=== PATIENT | female | born 1980 | race Caucasian/White ===

== ENCOUNTER 2017-08-15 20:12 | Emergency (ER) | payer OTHER ==
[2017-08-15] MEDS ORDERED: traMADol 50 MG Tab PO ONE (20:30)
--- NOTE | 2017-08-15 20:31 | EDM.PDOC ---
ED HPI GENERAL MEDICAL PROBLEM - General Chief Complaint: ENT Problem Time Seen by Provider: 08/15/17 20:12 Source of Information: Reports: Patient History Limitations: Reports: No Limitations - History of Present Illness INITIAL COMMENTS - FREE TEXT/NARRATIVE: 36 y.o.w.f with Hunter symptom with chronic dizziness, came to the ed with dental pain. Pt had an MRI done 4 weeks a go and a dental cyst was seen at her r upper frontal tooth for which she will undergo surgery this Wednesday. BP 136/ 94 puls 85 Temp 36.5 RR 18 Pulse ox 100% Onset Date: 08/11/17 Onset Time: 06:00 Duration: Week(s): Location: Reports: Face Quality: Reports: Dull, Pressure, Same as Previous Episode Severity: Moderate Improves with: Reports: Rest Worsens with: Reports: Movement Context: Reports: Other (dental cyst) Right Face Pain Score (Numeric/FACES): 7 - Related Data Allergies Allergy/AdvReac Type Severity Reaction Status Date / Time gabapentin [From Neurontin] Allergy Intermediate Difficulty Verified 08/15/17 20 :30 Breathing acetaminophen Allergy Difficulty Verified 08/15/17 20:30 [From Darvocet-N 100] Swallowing propoxyphene napsylate Allergy Difficulty Verified 08/15/17 20:30 [From Darvocet-N 100] Swallowing spironolactone Allergy Difficulty Verified 08/15/17 20:30 Swallowing sulfamethoxazole Allergy Diarrhea Verified 08/15/17 20:30 [From Bactrim] trimethoprim [From Bactrim] Allergy Diarrhea Verified 08/15/17 20:30 adhesives Allergy Rash Uncoded 08/15/17 20:30 Home Meds: Home Meds Albuterol [Ventolin HFA] 2 puff INH Q4H PRN 12/17/14 [History] Albuterol/Ipratropium [DuoNeb 3.0-0.5 MG/3 ML] 1 inh INH QID PRN 12/17/14 [ History] Aspirin [Halfprin] 81 mg PO DAILY 01/29/15 [History] Acetaminophen with Codeine [Tylenol with Codeine #3 Tablet] 2 each PO Q4HR PRN 11/27/15 [History] Albuterol [Proventil HFA] 6.7 gm INH Q4H 11/27/15 [History] Beclomethasone Dipropionate [Qvar 40 Mcg] 2 puff IH BID 11/27/15 [History] Diclofenac Sodium [Voltaren] 50 mg PO BID 11/27/15 [History] Fluconazole [Diflucan] 150 mg PO ASDIRECTED 11/27/15 [History] Letrozole [Femara] 2.5 mg PO DAILY 11/27/15 [History] Loperamide [Imodium] 2 mg PO ASDIRECTED PRN 11/27/15 [History] Ondansetron [Zofran] 4 mg PO Q4H PRN 11/27/15 [History] PARoxetine [Paxil] 20 mg PO DAILY 11/27/15 [History] Ranitidine [Zantac] 150 mg PO BID 11/27/15 [History] medroxyPROGESTERone [Provera] 10 mg PO DAILY 11/27/15 [History] metFORMIN [Glucophage] 500 mg PO BIDMEALS 11/27/15 [History] traMADol [Ultram] 50 mg PO Q4H PRN #16 tab 08/15/17 [Rx] Past Medical History Cardiovascular History: Reports: Syncope, Other (See Below) Other Cardiovascular History: POTS Respiratory History: Reports: Asthma Gastrointestinal History: Reports: Cholelithiasis Genitourinary History: Reports: Other (See Below) Other Genitourinary History: KIDNEY STONES 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 Musculoskeletal History: Reports: Other (See Below) Other Musculoskeletal History: JOINT PAIN Psychiatric History: Reports: Depression Endocrine/Metabolic History: Reports: Hypoparathyroidism Other Endocrine/Metabolic History: parathyroid tumor - Past Surgical History GI Surgical History: Reports: Cholecystectomy Social & Family History - Tobacco Use Smoking Status *Q: Never Smoker Second Hand Smoke Exposure: No - Alcohol Use Days Per Week of Alcohol Use: 0 - Recreational Drug Use Recreational Drug Use: No Drug Use in Last 12 Months: No - Living Situation & Occupation Living situation: Reports: , with Spouse Occupation: Employed ED ROS ENT - Review of Systems Review Of Systems: See Below Constitutional: Reports: No Symptoms HEENT: Reports: Other (dental pain) Respiratory: Reports: No Symptoms Cardiovascular: Reports: No Symptoms Endocrine: Reports: No Symptoms GI/Abdominal: Reports: No Symptoms : Reports: No Symptoms Musculoskeletal: Reports: No Symptoms Skin: Reports: No Symptoms Neurological: Reports: No Symptoms Psychiatric: Reports: No Symptoms Hematologic/Lymphatic: Reports: No Symptoms Immunologic: Reports: No Symptoms ED EXAM, ENT - Physical Exam Exam: See Below Exam Limited By: No Limitations General Appearance: Alert, WD/WN, No Apparent Distress Eye Exam: Bilateral Eye: Normal Inspection Ears: Normal External Exam, Normal Canal Nose: Normal Inspection, Normal Mucousa Mouth/Throat: Normal Inspection, Normal Gums, Normal Lips, Normal Oropharynx Head: Atraumatic, Normocephalic Neck: Normal Inspection, Supple, Non-Tender Respiratory/Chest: No Respiratory Distress, Lungs Clear, Normal Breath Sounds Cardiovascular: Normal Peripheral Pulses, Regular Rate, Rhythm, No Edema, No Gallop GI/Abdominal: Normal Bowel Sounds (Female) Exam: Deferred Rectal (Female) Exam: Deferred Back: Normal Inspection Extremities: Normal Inspection Neurological: Alert, Oriented, CN II-XII Intact Psychiatric: Normal Affect, Normal Mood Skin: Warm, Dry, Intact Lymphatic: No Adenopathy Course - Vital Signs Text/Narrative:: 36 y.o.w.f with Hunter symptom with chronic dizziness, came to the ed with dental pain. Pt had an MRI done 4 weeks a go and a dental cyst was seen at her r upper frontal tooth for which she will undergo surgery this Wednesday. BP 136/ 94 puls 85 Temp 36.5 RR 18 Pulse ox 100% PE: Dental cyst by HX Impression: Dental cyst Tx: Ultram Plan: D/C with instructions Last Recorded V/S: Last Vital Signs Temp 36.4 C 08/15/17 20:30 Pulse 85 08/15/17 20:30 Resp 16 08/15/17 20:30 BP 136/94 H 08/15/17 20:30 Pulse Ox 100 08/15/17 20:30 - Orders/Labs/Meds Meds: Medications Discontinued Medications Generic Name Dose Route Start Last Admin Trade Name Freq PRN Reason Stop Dose Admin Tramadol HCl 100 mg 08/15/17 20:30 08/15/17 20:40 Ultram PO 08/15/17 20:31 100 mg ONETIME ONE Administration Departure - Departure Time of Disposition: 20:32 Disposition: Home, Self-Care 01 Condition: Good Clinical Impression: Dental cyst, Facial pain - Discharge Information Prescriptions: traMADol [Ultram] 50 mg PO Q4H PRN #16 tab PRN Reason: severe pain Referrals: Ilya Hummel MD [Primary Care Provider] - Forms: ED Department Discharge Additional Instructions: Please apply ice to the affected area, please take ultram for severe pain. F/U as scheduled for this Wednesday, please come back if your symptoms get worse acutely
[2017-08-15 20:37] VITALS: BP 136/94
== END 2017-08-15 20:46 | disposition home or self-care (01) ==
LOC: FB.ED 20:12
DX: K04.8 Radicular cyst (principal); Z88.8 Allergy status to other drugs, medicaments and biological substances; Z88.6 Allergy status to analgesic agent; Z88.2 Allergy status to sulfonamides; Z88.1 Allergy status to other antibiotic agents; Z79.899 Other long term (current) drug therapy; Z79.82 Long term (current) use of aspirin; Z79.84 Long term (current) use of oral hypoglycemic drugs
CPT/HCPCS: 99283; A9270

== ENCOUNTER 2018-11-06 16:52 | Emergency (ER) | payer OTHER ==
--- NOTE | 2018-11-06 17:06 | EDM.PDOC ---
ED HPI GENERAL MEDICAL PROBLEM - General Stated Complaint: BACK AND ABD PAIN Time Seen by Provider: 11/06/18 17:03 Source of Information: Reports: Patient, Family History Limitations: Reports: No Limitations - History of Present Illness INITIAL COMMENTS - FREE TEXT/NARRATIVE: 38 years old w f with multiple med issues including H/o IDDM, obesity, kidney stones, came to the ed with left flank pain radiating to her left groin. No trauma, says she could e . No N/V/D or any other acute medical issues. BP 145/93 RR 16 Pulse ox 98% on RA, Temp 36.8 Pulse 98 Onset Date: 11/06/18 Onset Time: 07:00 Duration: Hour(s):, Getting Worse, Intermittent Location: Reports: Abdomen Quality: Reports: Ache, Burning, Dull, Pressure Severity: Moderate Improves with: Reports: Rest Worsens with: Reports: Movement Context: Reports: Other (H/O Kidney stones) Left Flank Pain Score (Numeric/FACES): 4 - Related Data Allergies Allergy/AdvReac Type Severity Reaction Status Date / Time gabapentin [From Neurontin] Allergy Intermediate Difficulty Verified 11/06/18 19 :00 Breathing spironolactone Allergy Difficulty Verified 11/06/18 19:00 Swallowing sulfamethoxazole Allergy Diarrhea Verified 11/06/18 19:00 [From Bactrim] trimethoprim [From Bactrim] Allergy Diarrhea Verified 11/06/18 19:00 adhesives Allergy Rash Uncoded 11/06/18 19:00 Home Meds: Home Meds Albuterol [Proventil HFA] 2 puff INH Q4H PRN 08/16/18 [History] Albuterol/Ipratropium [DuoNeb 3.0-0.5 MG/3 ML] 3 ml INH QID PRN 08/16/18 [ History] Aluminum Chloride [Drysol] 1 applic TP BID PRN 08/16/18 [History] Cholecalciferol (Vitamin D3) [Vitamin D3] 1,000 units PO DAILY 08/16/18 [History ] Cholestyramine/Sucrose [Cholestyramine] 4 gm PO WITHBREAKFAST 08/16/18 [History] Clindamycin Phos/Benzoyl Perox [Clindamycin-Benzoyl Perox 1-5%] 1 applic TP ASDIRECTED PRN 08/16/18 [History] Dapagliflozin Propanediol [Farxiga] 10 mg PO DAILY 08/16/18 [History] Econazole [Econazole 1% Crm] 1 applic TOP ASDIRECTED PRN 08/16/18 [History] Fluconazole [Diflucan] 150 mg PO DAILY PRN 08/16/18 [History] Fluocinonide 1 applic TP ASDIRECTED PRN 08/16/18 [History] Fluticasone Propionate [Flonase] 1 spray NS DAILY 08/16/18 [History] Gemfibrozil [Lopid] 600 mg PO BIDAC 08/16/18 [History] Insulin Degludec [Tresiba Flextouch U-100] 70 unit SQ DAILY 08/16/18 [History] Letrozole [Femara] 2.5 unit PO ASDIRECTED 08/16/18 [History] Lidocaine 5% 1 applic TOP ASDIRECTED PRN 08/16/18 [History] Loperamide [Imodium] 2 mg PO ASDIRECTED 08/16/18 [History] Midodrine 5 mg PO TIDAC 08/16/18 [History] Multivitamin with Minerals [Multiple Vitamin] 1 tab PO DAILY 08/16/18 [History] Naproxen [Naprosyn] 500 mg PO BID 08/16/18 [History] [place]-3/DHA/Epa/Fish Oil [[place]-3 Fish Oil 1,000 MG Sfgl] 1,000 mg PO DAILY 03/28 [History] Omeprazole/Sodium Bicarbonate [Omeprazole-Bicarb 40-1,100 Cap] 1 each PO DAILY 08/16/18 [History] Ondansetron [Zofran ODT] 4 mg PO Q4H PRN 08/16/18 [History] Pramipexole [Mirapex] 0.5 mg PO QID PRN 08/16/18 [History] Promethazine [Phenergan] 10 ml PO Q6H PRN 08/16/18 [History] Ranitidine HCl [Ranitidine] 150 mg PO BID PRN 08/16/18 [History] Rosuvastatin [Crestor] 10 mg PO DAILY 08/16/18 [History] SUMAtriptan 100 mg PO Q2H PRN 08/16/18 [History] Sennosides/Docusate Sodium [Senokot-S Tablet] 1 each PO BID PRN 08/16/18 [ History] Sertraline [Zoloft] 150 mg PO DAILY 08/16/18 [History] SitaGLIPtin [Januvia] 100 tab PO DAILY 08/16/18 [History] Tamsulosin [Flomax] 0.4 mg PO DAILY PRN 08/16/18 [History] Triamcinolone Acetonide [Triamcinolone Acetonide 0.1% Crm] 1 applic TOP TID PRN 08/16/18 [History] hydrOXYzine pamoate [Vistaril] 25 mg PO TID 08/16/18 [History] medroxyPROGESTERone [Provera] 10 mg PO DAILY PRN 08/16/18 [History] Past Medical History HEENT History: Reports: Impaired Vision Cardiovascular History: Reports: High Cholesterol, Hypertension, Syncope, Other (See Below) Other Cardiovascular History: POTS Respiratory History: Reports: Asthma, Sleep Apnea Gastrointestinal History: Reports: Cholelithiasis, Colon Polyp, GERD Genitourinary History: Reports: Renal Calculus, Renal Disease 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 Musculoskeletal History: Reports: Fracture, Other (See Below) Other Musculoskeletal History: JOINT PAIN Neurological History: Reports: None Psychiatric History: Reports: Depression Endocrine/Metabolic History: Reports: Diabetes, Type II, Hypoparathyroidism, Obesity/BMI 30+, Other (See Below) Other Endocrine/Metabolic History: parathyroid tumor. HYPERCALCEMIA Hematologic History: Reports: None Immunologic History: Reports: None Oncologic (Cancer) History: Reports: None Dermatologic History: Reports: None - Infectious Disease History Infectious Disease History: Reports: Chicken Pox - Past Surgical History Head Surgeries/Procedures: Reports: None HEENT Surgical History: Reports: Oral Surgery, Tonsillectomy Cardiovascular Surgical History: Reports: None Respiratory Surgical History: Reports: None GI Surgical History: Reports: Appendectomy, Cholecystectomy, Colonoscopy Female Surgical History: Reports: Cystectomy, Salpingo-Oophorectomy, Other ( See Below) Other Female Surgeries/Procedures: LEFT OVARY REMOVED; HX LAP DIAG, INCLUDING HYSTEROSCOPY, ENDOMETRIAL POLYPECTOMY ET CURRETTAGE, FULGURATION OF ENDOMETRIOSIS. CYSTOURETHROSCOPY /W RMVL URETERAL STONES. URETEROSCOPY Endocrine Surgical History: Reports: Parathyroidectomy Other Endocrine Surgeries/Procedures: parathyroid tumor removed 12/23 Neurological Surgical History: Reports: None Musculoskeletal Surgical History: Reports: ORIF Other Musculoskeletal Surgeries/Procedures:: 5 ankle surgeries Oncologic Surgical History: Reports: None Dermatological Surgical History: Reports: None Social & Family History - Caffeine Use Caffeine Use: Reports: Soda - Living Situation & Occupation Living situation: Reports: , with Spouse Occupation: Employed ED ROS GENERAL - Review of Systems Review Of Systems: See Below Constitutional: Reports: No Symptoms HEENT: Reports: No Symptoms Respiratory: Reports: No Symptoms Cardiovascular: Reports: No Symptoms Endocrine: Reports: High Glucose GI/Abdominal: Reports: No Symptoms : Reports: Hematuria Musculoskeletal: Reports: No Symptoms Skin: Reports: No Symptoms Neurological: Reports: No Symptoms Psychiatric: Reports: No Symptoms Hematologic/Lymphatic: Reports: No Symptoms Immunologic: Reports: No Symptoms ED EXAM, RENAL/ - Physical Exam Exam: See Below Exam Limited By: No Limitations General Appearance: Alert, WD/WN, Moderate Distress, Obese (morbid) Eye Exam: Bilateral Eye: Normal Inspection Ears: Normal External Exam Nose: Normal Inspection Throat/Mouth: Normal Inspection, Normal Lips, Normal Voice, No Airway Compromise Head: Atraumatic, Normocephalic Neck: Normal Inspection, Supple, Non-Tender, Full Range of Motion Respiratory/Chest: No Respiratory Distress, Lungs Clear, Normal Breath Sounds, No Accessory Muscle Use, Chest Non-Tender Cardiovascular: Normal Peripheral Pulses, Regular Rate, Rhythm, No Edema, No Gallop, No Murmur, No Rub GI/Abdominal: Normal Bowel Sounds, Soft, No Abnormal Bruit, Hepatomegaly, Splenomegaly, Other (left flank pain) (Female) Exam: Deferred Rectal (Female) Exam: Deferred Back Exam: Normal Inspection, Full Range of Motion, CVA Tenderness (L) Extremities: Normal Inspection, Normal Range of Motion, Non-Tender, No Pedal Edema, Normal Capillary Refill Neurological: Alert, Oriented, CN II-XII Intact, Normal Cognition, Normal Gait, No Motor/Sensory Deficits Psychiatric: Normal Affect, Normal Mood Skin Exam: Warm, Dry, Intact, Normal Color, No Rash Lymphatic: No Adenopathy Course - Vital Signs Text/Narrative:: 38 years old w f with multiple med issues including H/o IDDM, obesity, kidney stones, came to the ed with left flank pain radiating to her left groin. No trauma, says she could e . No N/V/D or any other acute medical issues. BP 145/93 RR 16 Pulse ox 98% on RA, Temp 36.8 Pulse 98 PE: Obese 38 y.o.w.f with left flank pain Imaging: CT abd/pelvis: Left ovarian cyst 3.1 cm, Nk kidney stone Labs: Na 131 Glc 413 MCV 77.4 Cl 96, UA pos for >1000 glc HCG neg Impression: Left sided ovarian cysts, IDDM with hyperglycemia, morbid obesity, hepatosplenomegaly Tx: Insulin 10 units SQ, Toradol Reexam: Improved, Glc on D/C 312 Plan: D/C with instructions Last Recorded V/S: Last Vital Signs Temp 36.8 C 11/06/18 19:20 Pulse 78 11/06/18 19:20 Resp 16 11/06/18 19:20 BP 145/93 H 11/06/18 19:20 Pulse Ox 99 11/06/18 19:20 - Orders/Labs/Meds Orders: Active Orders 24 hr Category Date Time Status Abdomen Pelvis wo Cont [CT] Stat Exams 11/06/18 18:02 Taken Labs: Laboratory Tests 11/06/18 11/06/18 11/06/18 Range/Units 17:15 17:15 17:30 WBC 9.6 (4.5-12.0) X10-3/uL RBC 5.06 (3.23-5.20) x10(6)uL Hgb 13.7 (11.5-15.5) g/dL Hct 39.3 (30.0-51.3) % MCV 77.6 L (80-96) fL MCH 27.1 L (27.7-33.6) pg MCHC 34.9 (32.2-35.4) g/dL RDW 16.3 H (11.5-15.5) % Plt Count 213 (125-369) X10(3)uL MPV 7.6 (7.4-10.4) fL Neut % (Auto) 66.6 (46-82) % Lymph % (Auto) 24.3 (13-37) % [place] % (Auto) 7.5 (4-12) % Eos % (Auto) 1 (1.0-5.0) % Baso % (Auto) 0 (0-2) % Neut # (Auto) 6.5 (1.6-8.3) # Lymph # (Auto) 2.3 (0.6-5.0) # [place] # (Auto) 0.7 (0.0-1.3) # Eos # (Auto) 0.1 (0.0-0.8) # Baso # (Auto) 0.0 (0.0-0.2) # Sodium 131 L (135-145) mmol/L Potassium 4.3 (3.5-5.3) mmol/L Chloride 96 L (100-110) mmol/L Carbon Dioxide 25 (21-32) mmol/L BUN 9 (7-18) mg/dL Creatinine 0.9 (0.55-1.02) mg/dL Est Cr Clr Drug Dosing TNP Estimated GFR (MDRD) > 60 (>60) BUN/Creatinine Ratio 10.0 (9-20) Glucose 413 H* (80-116) mg/dL POC Glucose (80-116) mg/dL Calcium 9.4 (8.6-10.2) mg/dL Urine Color Yellow (YELLOW) Urine Appearance Clear (CLEAR) Urine pH 5.0 (5.0-6.5) Ur Specific Stella 1.020 (1.010-1.025) Urine Protein Negative (NEGATIVE) mg/dL Urine Glucose (UA) >1000 H (NEGATIVE) mg/dL Urine Ketones Negative (NEGATIVE) mg/dL Urine Occult Blood Large H (NEGATIVE) Urine Nitrite Negative (NEGATIVE) Urine Bilirubin Negative (NEGATIVE) Urine Urobilinogen Normal (NEGATIVE) mg/dL Ur Leukocyte Esterase Negative (NEGATIVE) Urine RBC 0-5 (0) Urine WBC 0-5 (0) Ur Squamous Epith Cells Occasional (NS,R,O) Urine Bacteria Rare H (NS) Urine HCG, Qual (NEGATIVE) 11/06/18 11/06/18 Range/Units 17:30 19:30 WBC (4.5-12.0) X10-3/uL RBC (3.23-5.20) x10(6)uL Hgb (11.5-15.5) g/dL Hct (30.0-51.3) % MCV (80-96) fL MCH (27.7-33.6) pg MCHC (32.2-35.4) g/dL RDW (11.5-15.5) % Plt Count (125-369) X10(3)uL MPV (7.4-10.4) fL Neut % (Auto) (46-82) % Lymph % (Auto) (13-37) % [place] % (Auto) (4-12) % Eos % (Auto) (1.0-5.0) % Baso % (Auto) (0-2) % Neut # (Auto) (1.6-8.3) # Lymph # (Auto) (0.6-5.0) # [place] # (Auto) (0.0-1.3) # Eos # (Auto) (0.0-0.8) # Baso # (Auto) (0.0-0.2) # Sodium (135-145) mmol/L Potassium (3.5-5.3) mmol/L Chloride (100-110) mmol/L Carbon Dioxide (21-32) mmol/L BUN (7-18) mg/dL Creatinine (0.55-1.02) mg/dL Est Cr Clr Drug Dosing Estimated GFR (MDRD) (>60) BUN/Creatinine Ratio (9-20) Glucose (80-116) mg/dL POC Glucose 310 H D (80-116) mg/dL Calcium (8.6-10.2) mg/dL Urine Color (YELLOW) Urine Appearance (CLEAR) Urine pH (5.0-6.5) Ur Specific Stella (1.010-1.025) Urine Protein (NEGATIVE) mg/dL Urine Glucose (UA) (NEGATIVE) mg/dL Urine Ketones (NEGATIVE) mg/dL Urine Occult Blood (NEGATIVE) Urine Nitrite (NEGATIVE) Urine Bilirubin (NEGATIVE) Urine Urobilinogen (NEGATIVE) mg/dL Ur Leukocyte Esterase (NEGATIVE) Urine RBC (0) Urine WBC (0) Ur Squamous Epith Cells (NS,R,O) Urine Bacteria (NS) Urine HCG, Qual Negative (NEGATIVE) Meds: Medications Discontinued Medications Generic Name Dose Route Start Last Admin Trade Name Freq PRN Reason Stop Dose Admin Sodium Chloride 1,000 mls @ 999 mls/hr 11/06/18 18:02 11/06/18 19:27 Normal Saline IV 11/06/18 19:02 Not Given .BOLUS ONE Insulin Human Regular 10 unit 11/06/18 17:51 11/06/18 18:57 Humulin R SUBCUT 11/06/18 17:52 10 units ONETIME STA Administration Ketorolac Tromethamine 60 mg 11/06/18 18:52 11/06/18 18:57 Toradol IM 11/06/18 18:53 60 mg ONETIME ONE Administration Departure - Departure Time of Disposition: 19:26 Disposition: Home, Self-Care 01 Condition: Good Clinical Impression: Morbid obesity Ovarian cyst Qualifiers: Laterality: left Qualified Code(s): N83.202 - Unspecified ovarian cyst, left side Diabetes mellitus, insulin dependent (IDDM), uncontrolled Qualifiers: Glycemic state: with hyperglycemia Qualified Code(s): E10.65 - Type 1 diabetes mellitus with hyperglycemia - Discharge Information Instructions: Ovarian Cyst, [id number] Referrals: Ilya Hummel MD [Primary Care Provider] - Forms: ED Department Discharge Additional Instructions: Please increase water intake, please take Tylenol/Advil for pain, please f/u, come back if your symptoms get worse acutely - My Orders Last 24 Hours: My Active Orders 11/06/18 18:02 Abdomen Pelvis wo Cont [CT] Stat - Assessment/Plan Last 24 Hours: My Active Orders 11/06/18 18:02 Abdomen Pelvis wo Cont [CT] Stat
[2018-11-06] MEDS ORDERED: Insulin Regular, Human 100 Units/ML 3 ML Vial SUBCUT STA (17:51)
[2018-11-06] MEDS ORDERED: Sodium Chloride 0.9% 1,000 ML IV ONE (18:02)
[2018-11-06] MEDS ORDERED: Ketorolac 60 MG/2 ML SDV IM ONE (18:52)
[2018-11-06 19:40] VITALS: BP 145/93
== END 2018-11-06 19:37 | disposition home or self-care (01) ==
LOC: FB.ED 16:52
DX: N83.202 Unspecified ovarian cyst, left side (principal); E11.65 Type 2 diabetes mellitus with hyperglycemia; R16.2 Hepatomegaly with splenomegaly, not elsewhere classified; I10 Essential (primary) hypertension; E66.9 Obesity, unspecified; E66.01 Morbid (severe) obesity due to excess calories; Z88.8 Allergy status to other drugs, medicaments and biological substances; Z88.2 Allergy status to sulfonamides; Z79.899 Other long term (current) drug therapy
CPT/HCPCS: 36415; 74176; 80048; 81001; 81025; 82962; 85025; 96372; 99284; J1815; J1885

== ENCOUNTER 2018-11-25 22:19 | Emergency (ER) | payer OTHER ==
[2018-11-25] MEDS ORDERED: Amoxicillin/Clavulanate K 875-125 MG Tab PO ONE (22:29)
--- NOTE | 2018-11-25 22:34 | EDM.PDOC ---
ED HPI GENERAL MEDICAL PROBLEM - General Stated Complaint: DOG STRATCH TO LEFT ARM Time Seen by Provider: 11/25/18 22:19 Source of Information: Reports: Patient, Family History Limitations: Reports: No Limitations - History of Present Illness INITIAL COMMENTS - FREE TEXT/NARRATIVE: 38 y.o.w.francesco came with her daughter to the ed > 10 hours after she was bit by her own dog while attempting to separate 2 fighting neighbor's dogs. Her dog is UTD with his Rabies shots up to date and she, the patient Keila Abernathy, can proof it. Pt did not have the immunization records here in the ED. Pt stated, she washed the wound with soap and water and applied Neosporin ointment onto the wound. Because she was concerned about a scar, she came to the ED for eval. Her TD is UTD. Last TD immunization was 2013 as per her own records on her I Phone. Pt has full function at her left hand/arm. The puncture wound is not bleeding. No other acute medical issues. BP 143/84 RR 18 Pulse ox 99% on RA Pulse 95 Temp 36.8 Onset Date: 11/25/18 Onset Time: 12:05 Duration: Hour(s):, Constant Location: Reports: Upper Extremity, Left (forearm.) Quality: Reports: Dull Severity: Mild Improves with: Reports: Rest Worsens with: Reports: Movement Context: Reports: Other (dog bite) Associated Symptoms: Reports: No Other Symptoms Left Wrist Pain Score (Numeric/FACES): 5 - Related Data Allergies Allergy/AdvReac Type Severity Reaction Status Date / Time gabapentin [From Neurontin] Allergy Intermediate Difficulty Verified 11/26/18 00 :15 Breathing spironolactone Allergy Difficulty Verified 11/26/18 00:15 Swallowing sulfamethoxazole Allergy Diarrhea Verified 11/26/18 00:15 [From Bactrim] trimethoprim [From Bactrim] Allergy Diarrhea Verified 11/26/18 00:15 adhesives Allergy Rash Uncoded 11/26/18 00:15 Home Meds: Home Meds Albuterol [Proventil HFA] 2 puff INH Q4H PRN 08/16/18 [History] Albuterol/Ipratropium [DuoNeb 3.0-0.5 MG/3 ML] 3 ml INH QID PRN 08/16/18 [ History] Aluminum Chloride [Drysol] 1 applic TP BID PRN 08/16/18 [History] Cholecalciferol (Vitamin D3) [Vitamin D3] 1,000 units PO DAILY 08/16/18 [History ] Cholestyramine/Sucrose [Cholestyramine] 4 gm PO WITHBREAKFAST 08/16/18 [History] Clindamycin Phos/Benzoyl Perox [Clindamycin-Benzoyl Perox 1-5%] 1 applic TP ASDIRECTED PRN 08/16/18 [History] Dapagliflozin Propanediol [Farxiga] 10 mg PO DAILY 08/16/18 [History] Econazole [Econazole 1% Crm] 1 applic TOP ASDIRECTED PRN 08/16/18 [History] Fluconazole [Diflucan] 150 mg PO DAILY PRN 08/16/18 [History] Fluocinonide 1 applic TP ASDIRECTED PRN 08/16/18 [History] Fluticasone Propionate [Flonase] 1 spray NS DAILY 08/16/18 [History] Gemfibrozil [Lopid] 600 mg PO BIDAC 08/16/18 [History] Insulin Degludec [Tresiba Flextouch U-100] 70 unit SQ DAILY 08/16/18 [History] Letrozole [Femara] 2.5 unit PO ASDIRECTED 08/16/18 [History] Lidocaine 5% 1 applic TOP ASDIRECTED PRN 08/16/18 [History] Loperamide [Imodium] 2 mg PO ASDIRECTED 08/16/18 [History] Midodrine 5 mg PO TIDAC 08/16/18 [History] Multivitamin with Minerals [Multiple Vitamin] 1 tab PO DAILY 08/16/18 [History] Naproxen [Naprosyn] 500 mg PO BID 08/16/18 [History] [place]-3/DHA/Epa/Fish Oil [[place]-3 Fish Oil 1,000 MG Sfgl] 1,000 mg PO DAILY 03/28 [History] Omeprazole/Sodium Bicarbonate [Omeprazole-Bicarb 40-1,100 Cap] 1 each PO DAILY 08/16/18 [History] Ondansetron [Zofran ODT] 4 mg PO Q4H PRN 08/16/18 [History] Pramipexole [Mirapex] 0.5 mg PO QID PRN 08/16/18 [History] Promethazine [Phenergan] 10 ml PO Q6H PRN 08/16/18 [History] Ranitidine HCl [Ranitidine] 150 mg PO BID PRN 08/16/18 [History] Rosuvastatin [Crestor] 10 mg PO DAILY 08/16/18 [History] SUMAtriptan 100 mg PO Q2H PRN 08/16/18 [History] Sennosides/Docusate Sodium [Senokot-S Tablet] 1 each PO BID PRN 08/16/18 [ History] Sertraline [Zoloft] 150 mg PO DAILY 08/16/18 [History] SitaGLIPtin [Januvia] 100 tab PO DAILY 08/16/18 [History] Tamsulosin [Flomax] 0.4 mg PO DAILY PRN 08/16/18 [History] Triamcinolone Acetonide [Triamcinolone Acetonide 0.1% Crm] 1 applic TOP TID PRN 08/16/18 [History] hydrOXYzine pamoate [Vistaril] 25 mg PO TID 08/16/18 [History] medroxyPROGESTERone [Provera] 10 mg PO DAILY PRN 08/16/18 [History] Amoxicillin/Potassium Clav [Augmentin 875-125 Tablet] 1 each PO BID #20 tablet 11/25/18 [Rx] Past Medical History HEENT History: Reports: Impaired Vision Cardiovascular History: Reports: High Cholesterol, Hypertension, Syncope, Other (See Below) Other Cardiovascular History: POTS Respiratory History: Reports: Asthma, Sleep Apnea Gastrointestinal History: Reports: Cholelithiasis, Colon Polyp, GERD Genitourinary History: Reports: Renal Calculus, Renal Disease STICK ROLLER History: Reports: Endometriosis, Other STICK ROLLER History: cystic ovaries with surgery bilat ovaries. Musculoskeletal History: Reports: Fracture, Other (See Below) Other Musculoskeletal History: JOINT PAIN Neurological History: Reports: None Psychiatric History: Reports: Depression Endocrine/Metabolic History: Reports: Diabetes, Type II, Hypoparathyroidism, Obesity/BMI 30+, Other (See Below) Other Endocrine/Metabolic History: parathyroid tumor. HYPERCALCEMIA Hematologic History: Reports: None Immunologic History: Reports: None Oncologic (Cancer) History: Reports: None Dermatologic History: Reports: None - Infectious Disease History Infectious Disease History: Reports: Chicken Pox - Past Surgical History Head Surgeries/Procedures: Reports: None HEENT Surgical History: Reports: Oral Surgery, Tonsillectomy Cardiovascular Surgical History: Reports: None Respiratory Surgical History: Reports: None GI Surgical History: Reports: Appendectomy, Cholecystectomy, Colonoscopy Female Surgical History: Reports: Cystectomy, Salpingo-Oophorectomy, Other ( See Below) Other Female Surgeries/Procedures: LEFT OVARY REMOVED; HX LAP DIAG, INCLUDING HYSTEROSCOPY, ENDOMETRIAL POLYPECTOMY ET CURRETTAGE, FULGURATION OF ENDOMETRIOSIS. CYSTOURETHROSCOPY /W RMVL URETERAL STONES. URETEROSCOPY Endocrine Surgical History: Reports: Parathyroidectomy Other Endocrine Surgeries/Procedures: parathyroid tumor removed 12/23 Neurological Surgical History: Reports: None Musculoskeletal Surgical History: Reports: ORIF Other Musculoskeletal Surgeries/Procedures:: 5 ankle surgeries Oncologic Surgical History: Reports: None Dermatological Surgical History: Reports: None Social & Family History - Family History Family Medical History: Noncontributory - Caffeine Use Caffeine Use: Reports: Soda - Living Situation & Occupation Living situation: Reports: , with Spouse Occupation: Employed ED ROS GENERAL - Review of Systems Review Of Systems: See Below Constitutional: Reports: No Symptoms HEENT: Reports: No Symptoms Respiratory: Reports: No Symptoms Cardiovascular: Reports: No Symptoms Endocrine: Reports: No Symptoms GI/Abdominal: Reports: No Symptoms : Reports: No Symptoms Musculoskeletal: Reports: No Symptoms (punctured left forearm) Skin: Reports: Wound Neurological: Reports: No Symptoms Psychiatric: Reports: No Symptoms Hematologic/Lymphatic: Reports: No Symptoms Immunologic: Reports: No Symptoms ED EXAM, ANIMAL BITE - Physical Exam Exam: See Below Exam Limited By: No Limitations General Appearance: Alert, WD/WN, Mild Distress Eye Exam: Bilateral Eye: Normal Inspection Ears: Normal External Exam, Normal Canal Nose: Normal Inspection, Normal Mucosa, No Blood Throat/Mouth: Normal Lips, Normal Voice, No Airway Compromise Head: Atraumatic, Normocephalic Neck: Normal Inspection, Supple, Non-Tender, Full Range of Motion Respiratory/Chest: No Respiratory Distress, Lungs Clear, Normal Breath Sounds, Chest Non-Tender Cardiovascular: Normal Peripheral Pulses, Regular Rate, Rhythm, No Edema, No Gallop, No Murmur Peripheral Pulses: 1+: Brachial (R) GI/Abdominal: Normal Bowel Sounds, Soft, Non-Tender, No Organomegaly, No Abnormal Bruit, No Mass, Pelvis Stable (Female) Exam: Deferred Rectal (Female) Exam: Deferred Back Exam: Normal Inspection, Full Range of Motion Extremities: Normal Range of Motion, Non-Tender, No Pedal Edema, Normal Capillary Refill, Other (punctured wound left forearm, no bleed) Neurological: Alert, Oriented, CN II-XII Intact, Normal Cognition, Normal Gait Psychiatric: Normal Affect, Normal Mood Skin Exam: Normal Color, Warm/Dry, Other (punctured wound left forearm, no bleed.) Lymphadenopathy: Bilateral: No Adenopathy Lymphatic: No Adenopathy Course - Vital Signs Text/Narrative:: 38 y.o.w.f came with her daughter to the ed > 10 hours after she was bit by her own dog while attempting to separate 2 fighting neighbor's dogs. Her dog is UTD with his Rabies shots up to date and she, the patient Keila Abernathy, can proof it. Pt did not have the immunization records here in the ED. Pt stated, she washed the wound with soap and water and applied Neosporin ointment onto the wound. Because she was concerned about a scar, she came to the ED for eval. Her TD is UTD. Last TD immunization was 2013 as per her own records on her I Phone. Pt has full function at her left hand/arm. The puncture wound is not bleeding. No other acute medical issues. BP 143/84 RR 18 Pulse ox 99% on RA Pulse 95 Temp 36.8 PE: Morbid obese 38 y.o.w.f with punctured dog bite wound left forearm Immunization: TD UTD 2013 as per PT. Pt dog got rabies shots last year, pt said she can proof it Impression: Dog bite left forearm, punctured Tx: Wound care, Augmentin Reexam: Improved Plan: D/C with instructions Last Recorded V/S: Last Vital Signs Temp 36.8 C 11/25/18 22:20 Pulse 95 11/25/18 22:20 Resp 18 11/25/18 22:20 BP 143/84 H 11/25/18 22:20 Pulse Ox 99 11/25/18 22:20 - Orders/Labs/Meds Meds: Medications Discontinued Medications Generic Name Dose Route Start Last Admin Trade Name Freq PRN Reason Stop Dose Admin Amoxicillin/Clavulanate Potassium 1 tab 11/25/18 22:29 11/25/18 22:59 Augmentin 875 Mg/125 Mg PO 11/25/18 22:30 1 tab ONETIME ONE Administration Departure - Departure Time of Disposition: 23:03 Disposition: Home, Self-Care 01 Condition: Good Clinical Impression: Dog bite of arm Qualifiers: Encounter type: initial encounter Laterality: left Qualified Code(s): S41.152A - Open bite of left upper arm, initial encounter - Discharge Information Prescriptions: Amoxicillin/Potassium Clav [Augmentin 875-125 Tablet] 1 each PO BID #20 tablet Instructions: Animal Bite, [id number], Amoxicillin; Clavulanic Acid tablets Referrals: Ilya Hummel MD [Primary Care Provider] - Forms: ED Department Discharge Additional Instructions: Please wash the wound with soap and water twice daily, take Augmentin as recommended, wound check in 3 days. Please come back if your symptoms gt worse acutely. Motrin for pain.
[2018-11-25 23:10] VITALS: BP 143/84
== END 2018-11-25 23:13 | disposition home or self-care (01) ==
LOC: FB.ED 22:19
DX: S41.152A Open bite of left upper arm, initial encounter (principal); E78.00 Pure hypercholesterolemia, unspecified; I10 Essential (primary) hypertension; E11.9 Type 2 diabetes mellitus without complications; F32.9 Major depressive disorder, single episode, unspecified; Z79.899 Other long term (current) drug therapy; Z88.8 Allergy status to other drugs, medicaments and biological substances; Z88.2 Allergy status to sulfonamides; Z79.4 Long term (current) use of insulin; W54.0XXA Bitten by dog, initial encounter
CPT/HCPCS: 99282; A9270

== ENCOUNTER 2019-03-26 14:42 | Emergency (ER) | payer OTHER ==
[2019-03-26] MEDS ORDERED: Insulin Lispro 100 Unit/ML 3 ML KwikPen SUBCUT ONE (15:27)
--- NOTE | 2019-03-26 15:29 | EDM.PDOC ---
ED HPI GENERAL MEDICAL PROBLEM - General Chief Complaint: General Stated Complaint: HAND INFECTION Time Seen by Provider: 03/26/19 15:24 Source of Information: Reports: Patient History Limitations: Reports: No Limitations - History of Present Illness INITIAL COMMENTS - FREE TEXT/NARRATIVE: Developed pain to the left 4th digit radiating to dorsum of hand yesterday. This morning noticed redness and swelling to the left 4th digit and was able to express purulent fluid. Patient also developed tingling sensation to the left 4th digit today, but no weakness. Blood sugar was @350 this morning. Patient has DM 2 and also complains of slight nausea and polydipsia. Location: Reports: Upper Extremity, Left Severity: Mild Left ring finger Pain Score (Numeric/FACES): 5 - Related Data Allergies Allergy/AdvReac Type Severity Reaction Status Date / Time gabapentin [From Neurontin] Allergy Intermediate Difficulty Verified 03/26/19 16 :12 Breathing spironolactone Allergy Difficulty Verified 03/26/19 16:12 Swallowing sulfamethoxazole Allergy Diarrhea Verified 03/26/19 16:12 [From Bactrim] trimethoprim [From Bactrim] Allergy Diarrhea Verified 03/26/19 16:12 adhesives Allergy Rash Uncoded 11/26/18 00:15 Home Meds: Home Meds Albuterol [Proventil HFA] 2 puff INH Q4H PRN 08/16/18 [History] Albuterol/Ipratropium [DuoNeb 3.0-0.5 MG/3 ML] 3 ml INH QID PRN 08/16/18 [ History] Aluminum Chloride [Drysol] 1 applic TP BID PRN 08/16/18 [History] Cholecalciferol (Vitamin D3) [Vitamin D3] 1,000 units PO DAILY 08/16/18 [History ] Cholestyramine/Sucrose [Cholestyramine] 4 gm PO WITHBREAKFAST 08/16/18 [History] Clindamycin Phos/Benzoyl Perox [Clindamycin-Benzoyl Perox 1-5%] 1 applic TP ASDIRECTED PRN 08/16/18 [History] Dapagliflozin Propanediol [Farxiga] 10 mg PO DAILY 08/16/18 [History] Econazole [Econazole 1% Crm] 1 applic TOP ASDIRECTED PRN 08/16/18 [History] Fluconazole [Diflucan] 150 mg PO DAILY PRN 08/16/18 [History] Fluocinonide 1 applic TP ASDIRECTED PRN 08/16/18 [History] Fluticasone Propionate [Flonase] 1 spray NS DAILY 08/16/18 [History] Gemfibrozil [Lopid] 600 mg PO BIDAC 08/16/18 [History] Insulin Degludec [Tresiba Flextouch U-100] 70 unit SQ DAILY 08/16/18 [History] Letrozole [Femara] 2.5 unit PO ASDIRECTED 08/16/18 [History] Lidocaine 5% 1 applic TOP ASDIRECTED PRN 08/16/18 [History] Loperamide [Imodium] 2 mg PO ASDIRECTED 08/16/18 [History] Midodrine 5 mg PO TIDAC 08/16/18 [History] Multivitamin with Minerals [Multiple Vitamin] 1 tab PO DAILY 08/16/18 [History] Naproxen [Naprosyn] 500 mg PO BID 08/16/18 [History] [place]-3/DHA/Epa/Fish Oil [[place]-3 Fish Oil 1,000 MG Sfgl] 1,000 mg PO DAILY 03/28 [History] Omeprazole/Sodium Bicarbonate [Omeprazole-Bicarb 40-1,100 Cap] 1 each PO DAILY 08/16/18 [History] Ondansetron [Zofran ODT] 4 mg PO Q4H PRN 08/16/18 [History] Pramipexole [Mirapex] 0.5 mg PO QID PRN 08/16/18 [History] Promethazine [Phenergan] 10 ml PO Q6H PRN 08/16/18 [History] Ranitidine HCl [Ranitidine] 150 mg PO BID PRN 08/16/18 [History] Rosuvastatin [Crestor] 10 mg PO DAILY 08/16/18 [History] SUMAtriptan 100 mg PO Q2H PRN 08/16/18 [History] Sennosides/Docusate Sodium [Senokot-S Tablet] 1 each PO BID PRN 08/16/18 [ History] Sertraline [Zoloft] 150 mg PO DAILY 08/16/18 [History] SitaGLIPtin [Januvia] 100 tab PO DAILY 08/16/18 [History] Tamsulosin [Flomax] 0.4 mg PO DAILY PRN 08/16/18 [History] Triamcinolone Acetonide [Triamcinolone Acetonide 0.1% Crm] 1 applic TOP TID PRN 08/16/18 [History] hydrOXYzine pamoate [Vistaril] 25 mg PO TID 08/16/18 [History] medroxyPROGESTERone [Provera] 10 mg PO DAILY PRN 08/16/18 [History] Amoxicillin/Potassium Clav [Augmentin 875-125 Tablet] 1 each PO BID #20 tablet 11/25/18 [Rx] Cephalexin [Keflex] 500 mg PO QID #40 capsule 03/26/19 [Rx] Past Medical History HEENT History: Reports: Impaired Vision Cardiovascular History: Reports: High Cholesterol, Hypertension, Syncope, Other (See Below) Other Cardiovascular History: POTS Respiratory History: Reports: Asthma, Sleep Apnea Gastrointestinal History: Reports: Cholelithiasis, Colon Polyp, GERD Genitourinary History: Reports: Renal Calculus, Renal Disease 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 Musculoskeletal History: Reports: Fracture, Other (See Below) Other Musculoskeletal History: JOINT PAIN Neurological History: Reports: None Psychiatric History: Reports: Depression Endocrine/Metabolic History: Reports: Diabetes, Type II, Hypoparathyroidism, Obesity/BMI 30+, Other (See Below) Other Endocrine/Metabolic History: parathyroid tumor. HYPERCALCEMIA Hematologic History: Reports: None Immunologic History: Reports: None Oncologic (Cancer) History: Reports: None Dermatologic History: Reports: None - Infectious Disease History Infectious Disease History: Reports: Chicken Pox - Past Surgical History Head Surgeries/Procedures: Reports: None HEENT Surgical History: Reports: Oral Surgery, Tonsillectomy Cardiovascular Surgical History: Reports: None Respiratory Surgical History: Reports: None GI Surgical History: Reports: Appendectomy, Cholecystectomy, Colonoscopy Female Surgical History: Reports: Cystectomy, Salpingo-Oophorectomy, Other ( See Below) Other Female Surgeries/Procedures: LEFT OVARY REMOVED; HX LAP DIAG, INCLUDING HYSTEROSCOPY, ENDOMETRIAL POLYPECTOMY ET CURRETTAGE, FULGURATION OF ENDOMETRIOSIS. CYSTOURETHROSCOPY /W RMVL URETERAL STONES. URETEROSCOPY Endocrine Surgical History: Reports: Parathyroidectomy Other Endocrine Surgeries/Procedures: parathyroid tumor removed 12/23 Neurological Surgical History: Reports: None Musculoskeletal Surgical History: Reports: ORIF Other Musculoskeletal Surgeries/Procedures:: 5 ankle surgeries Oncologic Surgical History: Reports: None Dermatological Surgical History: Reports: None Social & Family History - Family History Family Medical History: Noncontributory - Caffeine Use Caffeine Use: Reports: Soda - Living Situation & Occupation Living situation: Reports: , with Spouse Occupation: Employed ED ROS GENERAL - Review of Systems Review Of Systems: ROS reveals no pertinent complaints other than HPI. ED EXAM, GENERAL - Physical Exam Exam: See Below Exam Limited By: No Limitations General Appearance: Alert, WD/WN, No Apparent Distress Ears: Normal External Exam Nose: Normal Inspection Throat/Mouth: No Airway Compromise Head: Atraumatic, Normocephalic Neck: Full Range of Motion Respiratory/Chest: No Respiratory Distress Peripheral Pulses: 2+: Radial (L) Extremities: Other (mild erythema and tenderness to the distal aspect of left 4th digit, dried yellow fluid adjacent to the medical aspect of fingernail) Neurological: Alert, Normal Cognition, No Motor/Sensory Deficits Psychiatric: Normal Affect, Normal Mood Course - Vital Signs Text/Narrative:: BP 152/111, T 97.9, HR 90, RR 18, Sa02 100% RA Last Recorded V/S: Last Vital Signs Temp 36.6 C 03/26/19 14:50 Pulse 85 03/26/19 15:40 Resp 18 03/26/19 15:40 BP 151/103 H 03/26/19 15:40 Pulse Ox 98 03/26/19 15:40 - Orders/Labs/Meds Orders: Active Orders 24 hr Category Date Time Status Accu Check [Blood Glucose Check, Bedside] [RC] ONETIME Care 03/26/19 15:23 Active Accu Check [Blood Glucose Check, Bedside] [RC] ONETIME Care 03/26/19 16:30 Active Labs: Laboratory Tests 03/26/19 03/26/19 Range/Units 15:35 15:35 WBC 8.8 (4.5-12.0) X10-3/uL RBC 4.92 (3.23-5.20) x10(6)uL Hgb 12.6 (11.5-15.5) g/dL Hct 38.1 (30.0-51.3) % MCV 77.5 L (80-96) fL MCH 25.7 L (27.7-33.6) pg MCHC 33.1 (32.2-35.4) g/dL RDW 15.8 H (11.5-15.5) % Plt Count 239 (125-369) X10(3)uL MPV 9.0 (7.4-10.4) fL Neut % (Auto) 72.4 (46-82) % Lymph % (Auto) 22.1 (13-37) % Dougherty % (Auto) 3.2 L (4-12) % Eos % (Auto) 2 (1.0-5.0) % Baso % (Auto) 0 (0-2) % Neut # (Auto) 6.4 (1.6-8.3) # Lymph # (Auto) 1.9 (0.6-5.0) # Dougherty # (Auto) 0.3 (0.0-1.3) # Eos # (Auto) 0.2 (0.0-0.8) # Baso # (Auto) 0.0 (0.0-0.2) # Sodium 139 (135-145) mmol/L Potassium 4.7 (3.5-5.3) mmol/L Chloride 100 (100-110) mmol/L Carbon Dioxide 29 (21-32) mmol/L BUN 13 (7-18) mg/dL Creatinine 0.6 (0.55-1.02) mg/dL Est Cr Clr Drug Dosing 106.19 mL/min Estimated GFR (MDRD) > 60 (>60) BUN/Creatinine Ratio 21.7 H (9-20) Glucose 340 H (80-116) mg/dL Calcium 9.1 (8.6-10.2) mg/dL Meds: Medications Discontinued Medications Generic Name Dose Route Start Last Admin Trade Name Freq PRN Reason Stop Dose Admin Insulin Human Lispro 10 unit 03/26/19 15:27 03/26/19 15:37 Humalog SUBCUT 03/26/19 15:28 10 units .ONCE ONE Administration - Re-Assessments/Exams Free Text/Narrative Re-Assessment/Exam: 03/26/19 16:36 Blood sugar improved to 280 after Humalog 10 units SC. 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 Fill the Keflex prescription and take as directed. Follow up with your primary physician in 2-3 days. Return to the ER if symptoms worsen. - My Orders Last 24 Hours: My Active Orders 03/26/19 15:23 Accu Check [Blood Glucose Check, Bedside] [RC] ONETIME 03/26/19 16:30 Accu Check [Blood Glucose Check, Bedside] [RC] ONETIME - Assessment/Plan Last 24 Hours: My Active Orders 03/26/19 15:23 Accu Check [Blood Glucose Check, Bedside] [RC] ONETIME 03/26/19 16:30 Accu Check [Blood Glucose Check, Bedside] [RC] ONETIME
[2019-03-26] MEDS ORDERED: Cephalexin 500 MG Cap PO ONE (16:37)
[2019-03-26 17:17] VITALS: BP 153/107
== END 2019-03-26 17:05 | disposition home or self-care (01) ==
LOC: FB.ED 14:42
DX: E11.65 Type 2 diabetes mellitus with hyperglycemia (principal); L03.012 Cellulitis of left finger; I10 Essential (primary) hypertension; E66.9 Obesity, unspecified; F32.9 Major depressive disorder, single episode, unspecified; Z79.4 Long term (current) use of insulin; Z98.890 Other specified postprocedural states; Z90.49 Acquired absence of other specified parts of digestive tract; Z79.899 Other long term (current) drug therapy; Z88.8 Allergy status to other drugs, medicaments and biological substances; Z91.09 Other allergy status, other than to drugs and biological substances; Z88.2 Allergy status to sulfonamides
CPT/HCPCS: 36415; 80048; 82962; 85025; 96372; 99283; A9270; J1815

== ENCOUNTER 2019-04-08 22:40 | Emergency (ER) | payer OTHER ==
[2019-04-08] MEDS ORDERED: hydrOXYzine HCl 50 MG/ML SDV IM ONE (22:47)
[2019-04-08] MEDS ORDERED: Ketorolac 60 MG/2 ML SDV IM ONE (22:47)
[2019-04-08 22:52] VITALS: BP 155/112
--- NOTE | 2019-04-08 22:52 | EDM.PDOC ---
ED HPI GENERAL MEDICAL PROBLEM - General Chief Complaint: Headache Stated Complaint: MIGRAINE Time Seen by Provider: 04/08/19 22:48 Source of Information: Reports: Patient History Limitations: Reports: No Limitations - History of Present Illness INITIAL COMMENTS - FREE TEXT/NARRATIVE: Complains of a headache that started yesterday. She has a history of migraine headaches, and has been going to chiropractor for manipulation. Headache is steady but; today she experienced blurry vision. This is new.Denies nausea or vomiting. She has a history of type 2 diabetes, insulin-dependent, obesity, and anxiety. Today she denies any chest pain or shortness of breath - Related Data Allergies Allergy/AdvReac Type Severity Reaction Status Date / Time gabapentin [From Neurontin] Allergy Intermediate Difficulty Verified 03/26/19 16 :12 Breathing spironolactone Allergy Difficulty Verified 03/26/19 16:12 Swallowing sulfamethoxazole Allergy Diarrhea Verified 03/26/19 16:12 [From Bactrim] trimethoprim [From Bactrim] Allergy Diarrhea Verified 03/26/19 16:12 adhesives Allergy Rash Uncoded 11/26/18 00:15 Home Meds: Home Meds Albuterol [Proventil HFA] 2 puff INH Q4H PRN 08/16/18 [History] Albuterol/Ipratropium [DuoNeb 3.0-0.5 MG/3 ML] 3 ml INH QID PRN 08/16/18 [ History] Aluminum Chloride [Drysol] 1 applic TP BID PRN 08/16/18 [History] Cholecalciferol (Vitamin D3) [Vitamin D3] 1,000 units PO DAILY 08/16/18 [History ] Cholestyramine/Sucrose [Cholestyramine] 4 gm PO WITHBREAKFAST 08/16/18 [History] Clindamycin Phos/Benzoyl Perox [Clindamycin-Benzoyl Perox 1-5%] 1 applic TP ASDIRECTED PRN 08/16/18 [History] Dapagliflozin Propanediol [Farxiga] 10 mg PO DAILY 08/16/18 [History] Econazole [Econazole 1% Crm] 1 applic TOP ASDIRECTED PRN 08/16/18 [History] Fluconazole [Diflucan] 150 mg PO DAILY PRN 08/16/18 [History] Fluocinonide 1 applic TP ASDIRECTED PRN 08/16/18 [History] Fluticasone Propionate [Flonase] 1 spray NS DAILY 08/16/18 [History] Gemfibrozil [Lopid] 600 mg PO BIDAC 08/16/18 [History] Insulin Degludec [Tresiba Flextouch U-100] 70 unit SQ DAILY 08/16/18 [History] Letrozole [Femara] 2.5 unit PO ASDIRECTED 08/16/18 [History] Lidocaine 5% 1 applic TOP ASDIRECTED PRN 08/16/18 [History] Loperamide [Imodium] 2 mg PO ASDIRECTED 08/16/18 [History] Midodrine 5 mg PO TIDAC 08/16/18 [History] Multivitamin with Minerals [Multiple Vitamin] 1 tab PO DAILY 08/16/18 [History] Naproxen [Naprosyn] 500 mg PO BID 08/16/18 [History] [place]-3/DHA/Epa/Fish Oil [[place]-3 Fish Oil 1,000 MG Sfgl] 1,000 mg PO DAILY 03/28 [History] Omeprazole/Sodium Bicarbonate [Omeprazole-Bicarb 40-1,100 Cap] 1 each PO DAILY 08/16/18 [History] Ondansetron [Zofran ODT] 4 mg PO Q4H PRN 08/16/18 [History] Pramipexole [Mirapex] 0.5 mg PO QID PRN 08/16/18 [History] Promethazine [Phenergan] 10 ml PO Q6H PRN 08/16/18 [History] Ranitidine HCl [Ranitidine] 150 mg PO BID PRN 08/16/18 [History] Rosuvastatin [Crestor] 10 mg PO DAILY 08/16/18 [History] SUMAtriptan 100 mg PO Q2H PRN 08/16/18 [History] Sennosides/Docusate Sodium [Senokot-S Tablet] 1 each PO BID PRN 08/16/18 [ History] Sertraline [Zoloft] 150 mg PO DAILY 08/16/18 [History] SitaGLIPtin [Januvia] 100 tab PO DAILY 08/16/18 [History] Tamsulosin [Flomax] 0.4 mg PO DAILY PRN 08/16/18 [History] Triamcinolone Acetonide [Triamcinolone Acetonide 0.1% Crm] 1 applic TOP TID PRN 08/16/18 [History] hydrOXYzine pamoate [Vistaril] 25 mg PO TID 08/16/18 [History] medroxyPROGESTERone [Provera] 10 mg PO DAILY PRN 08/16/18 [History] Amoxicillin/Potassium Clav [Augmentin 875-125 Tablet] 1 each PO BID #20 tablet 11/25/18 [Rx] Cephalexin [Keflex] 500 mg PO QID #40 capsule 03/26/19 [Rx] Past Medical History HEENT History: Reports: Impaired Vision Cardiovascular History: Reports: High Cholesterol, Hypertension, Syncope, Other (See Below) Other Cardiovascular History: POTS Respiratory History: Reports: Asthma, Sleep Apnea Gastrointestinal History: Reports: Cholelithiasis, Colon Polyp, GERD Genitourinary History: Reports: Renal Calculus, Renal Disease 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 Musculoskeletal History: Reports: Fracture, Other (See Below) Other Musculoskeletal History: JOINT PAIN Neurological History: Reports: None Psychiatric History: Reports: Depression Endocrine/Metabolic History: Reports: Diabetes, Type II, Hypoparathyroidism, Obesity/BMI 30+, Other (See Below) Other Endocrine/Metabolic History: parathyroid tumor. HYPERCALCEMIA Hematologic History: Reports: None Immunologic History: Reports: None Oncologic (Cancer) History: Reports: None Dermatologic History: Reports: None - Infectious Disease History Infectious Disease History: Reports: Chicken Pox - Past Surgical History Head Surgeries/Procedures: Reports: None HEENT Surgical History: Reports: Oral Surgery, Tonsillectomy Cardiovascular Surgical History: Reports: None Respiratory Surgical History: Reports: None GI Surgical History: Reports: Appendectomy, Cholecystectomy, Colonoscopy Female Surgical History: Reports: Cystectomy, Salpingo-Oophorectomy, Other ( See Below) Other Female Surgeries/Procedures: LEFT OVARY REMOVED; HX LAP DIAG, INCLUDING HYSTEROSCOPY, ENDOMETRIAL POLYPECTOMY ET CURRETTAGE, FULGURATION OF ENDOMETRIOSIS. CYSTOURETHROSCOPY /W RMVL URETERAL STONES. URETEROSCOPY Endocrine Surgical History: Reports: Parathyroidectomy Other Endocrine Surgeries/Procedures: parathyroid tumor removed 12/23 Neurological Surgical History: Reports: None Musculoskeletal Surgical History: Reports: ORIF Other Musculoskeletal Surgeries/Procedures:: 5 ankle surgeries Oncologic Surgical History: Reports: None Dermatological Surgical History: Reports: None Social & Family History - Family History Family Medical History: Noncontributory - Caffeine Use Caffeine Use: Reports: Soda - Living Situation & Occupation Living situation: Reports: , with Spouse Occupation: Employed ED ROS GENERAL - Review of Systems Review Of Systems: ROS reveals no pertinent complaints other than HPI. - Physical Exam Exam: See Below Exam Limited By: No Limitations General Appearance: Alert, WD/WN, No Apparent Distress, Anxious Ears: Normal External Exam Nose: Normal Inspection Throat/Mouth: Normal Inspection Head Exam: Atraumatic, Normocephalic Respiratory/Chest: No Respiratory Distress Cardiovascular: Normal Peripheral Pulses Neuro Exam (Abbreviated): Alert, Oriented, CN II-XII Intact Extremities: Normal Inspection Psychiatric: Normal Affect, Normal Mood, Anxious Skin Exam: Warm, Cool, Diaphoretic Course - Orders/Labs/Meds Orders: Active Orders 24 hr Category Date Time Status BASIC METABOLIC PANEL,BMP [CHEM] Stat Lab 04/08/19 22:47 Ordered CBC WITH AUTO DIFF [HEME] Stat Lab 04/08/19 22:47 Ordered GLYCOSYLATED HEMOGLOBIN,HGBA1C [CHEM] Stat Lab 04/08/19 22:47 Ordered Ketorolac [Toradol] Med 04/08/19 22:47 Once 60 mg IM ONETIME ONE hydrOXYzine HCl [Vistaril] Med 04/08/19 22:47 Once 100 mg IM ONETIME ONE Meds: Medications Discontinued Medications Generic Name Dose Route Start Last Admin Trade Name Freq PRN Reason Stop Dose Admin Hydroxyzine HCl 100 mg 04/08/19 22:47 Vistaril IM 04/08/19 22:48 ONETIME ONE Ketorolac Tromethamine 60 mg 04/08/19 22:47 Toradol IM 04/08/19 22:48 ONETIME ONE Departure - Departure Time of Disposition: 22:50 Disposition: Home, Self-Care 01 Condition: Good Clinical Impression: Migraine - Discharge Information Referrals: Ilya Hummel MD [Primary Care Provider] - - Problem List & Annotations (1) Visual disturbance SNOMED Code(s): 99010223 Code(s): H53.9 - UNSPECIFIED VISUAL DISTURBANCE Status: Acute (2) HTN (hypertension) SNOMED Code(s): 85337860 Code(s): I10 - ESSENTIAL (PRIMARY) HYPERTENSION Status: Acute Qualifiers: Hypertension type: essential hypertension Qualified Code(s): I10 - Essential (primary) hypertension (3) Migraine SNOMED Code(s): 89781067 Code(s): G43.909 - MIGRAINE, UNSP, NOT INTRACTABLE, WITHOUT STATUS MIGRAINOSUS Status: Acute (4) Morbid obesity SNOMED Code(s): 008198422 Code(s): E66.01 - MORBID (SEVERE) OBESITY DUE TO EXCESS CALORIES Status: Acute - Problem List Review Problem List Initiated/Reviewed/Updated: Yes - My Orders Last 24 Hours: My Active Orders 04/08/19 22:47 BASIC METABOLIC PANEL,BMP [CHEM] Stat CBC WITH AUTO DIFF [HEME] Stat GLYCOSYLATED HEMOGLOBIN,HGBA1C [CHEM] Stat Ketorolac [Toradol] 60 mg IM ONETIME ONE hydrOXYzine HCl [Vistaril] 100 mg IM ONETIME ONE - Assessment/Plan Last 24 Hours: My Active Orders 04/08/19 22:47 BASIC METABOLIC PANEL,BMP [CHEM] Stat CBC WITH AUTO DIFF [HEME] Stat GLYCOSYLATED HEMOGLOBIN,HGBA1C [CHEM] Stat Ketorolac [Toradol] 60 mg IM ONETIME ONE hydrOXYzine HCl [Vistaril] 100 mg IM ONETIME ONE
[2019-04-08 23:15] LABS: HEMOGLOBIN A1C 10.4 % (4.5-6.2)
[2019-04-08] MEDS ORDERED: Insulin Lispro 100 Unit/ML 3 ML KwikPen SUBCUT ONE (23:17)
== END 2019-04-08 23:25 | disposition home or self-care (01) ==
LOC: FB.ED 22:40
DX: G43.909 Migraine, unspecified, not intractable, without status migrainosus (principal); I10 Essential (primary) hypertension; E78.00 Pure hypercholesterolemia, unspecified; K21.9 Gastro-esophageal reflux disease without esophagitis; E11.9 Type 2 diabetes mellitus without complications; E20.9 Hypoparathyroidism, unspecified; Z79.899 Other long term (current) drug therapy; Z79.4 Long term (current) use of insulin; Z88.8 Allergy status to other drugs, medicaments and biological substances; Z88.1 Allergy status to other antibiotic agents; Z88.2 Allergy status to sulfonamides; Z91.09 Other allergy status, other than to drugs and biological substances
CPT/HCPCS: 36415; 80048; 83036; 85025; 96372; 99283; J1815; J1885; J3410

== ENCOUNTER 2019-10-22 17:42 | Emergency (ER) | payer OTHER ==
--- NOTE | 2019-10-22 18:07 | EDM.PDOC ---
ED HPI GENERAL MEDICAL PROBLEM - General Stated Complaint: CHEST PAIN Time Seen by Provider: 10/22/19 17:50 Source of Information: Reports: Patient History Limitations: Reports: No Limitations - History of Present Illness INITIAL COMMENTS - FREE TEXT/NARRATIVE: pt c/o substernal burning sensation on and off since yesterday morning, denies any radiation of this pain or any other associated sx or Hx of similar problems or any other concerns. report Hx of blood in stool on and off for few months and tells me she is following on this issue with her PCP. pt indicate Hx of DM and cardiac erythremia. - Related Data Allergies Allergy/AdvReac Type Severity Reaction Status Date / Time gabapentin [From Neurontin] Allergy Intermediate Difficulty Verified 04/08/19 22 :49 Breathing spironolactone Allergy Difficulty Verified 04/08/19 22:49 Swallowing sulfamethoxazole Allergy Diarrhea Verified 04/08/19 22:49 [From Bactrim] trimethoprim [From Bactrim] Allergy Diarrhea Verified 04/08/19 22:49 adhesives Allergy Rash Uncoded 11/26/18 00:15 Home Meds: Home Meds Albuterol [Proventil HFA] 2 puff INH Q4H PRN 08/16/18 [History] Albuterol/Ipratropium [DuoNeb 3.0-0.5 MG/3 ML] 3 ml INH QID PRN 08/16/18 [ History] Aluminum Chloride [Drysol] 1 applic TP BID PRN 08/16/18 [History] Cholecalciferol (Vitamin D3) [Vitamin D3] 1,000 units PO DAILY 08/16/18 [History ] Gemfibrozil [Lopid] 600 mg PO BIDAC 08/16/18 [History] Insulin Degludec [Tresiba Flextouch U-100] 70 unit SQ DAILY 08/16/18 [History] Lidocaine 5% 1 applic TOP ASDIRECTED PRN 08/16/18 [History] Midodrine 5 mg PO TIDAC 08/16/18 [History] Multivitamin with Minerals [Multiple Vitamin] 1 tab PO DAILY 08/16/18 [History] [place]-3/DHA/Epa/Fish Oil [[place]-3 Fish Oil 1,000 MG Sfgl] 1,000 mg PO DAILY 03/28 [History] Omeprazole/Sodium Bicarbonate [Omeprazole-Bicarb 40-1,100 Cap] 1 each PO DAILY 08/16/18 [History] Pramipexole [Mirapex] 0.5 mg PO QID PRN 08/16/18 [History] Rosuvastatin [Crestor] 10 mg PO DAILY 08/16/18 [History] SUMAtriptan 100 mg PO Q2H PRN 08/16/18 [History] Sennosides/Docusate Sodium [Senokot-S Tablet] 1 each PO BID PRN 08/16/18 [ History] Tamsulosin [Flomax] 0.4 mg PO DAILY PRN 08/16/18 [History] Triamcinolone Acetonide [Triamcinolone Acetonide 0.1% Crm] 1 applic TOP TID PRN 08/16/18 [History] Beclomethasone Dipropionate [Qvar 80 Mcg] 40 mcg INH DAILY 10/22/19 [History] Cyclobenzaprine [Flexeril] 10 mg PO TID 10/22/19 [History] Insulin Aspart [NovoLOG] 30 unit SUBCUT WITHBREAKFAST 10/22/19 [History] Insulin Aspart [NovoLOG] 30 unit WITHDINNER 10/22/19 [History] Insulin Degludec [Tresiba] 75 unit SQ DAILY 10/22/19 [History] Sucralfate 1 gm PO DAILY 10/22/19 [History] Zaleplon [Sonata] 5 - 10 mg PO BEDTIME 10/22/19 [History] buPROPion [buPROPion XL] 150 mg PO DAILY 10/22/19 [History] Past Medical History HEENT History: Reports: Impaired Vision Cardiovascular History: Reports: High Cholesterol, Hypertension, Syncope, Other (See Below) Other Cardiovascular History: POTS Respiratory History: Reports: Asthma, Sleep Apnea Gastrointestinal History: Reports: Cholelithiasis, Colon Polyp, GERD Genitourinary History: Reports: Renal Calculus, Renal Disease PELT SALTER History: Reports: Endometriosis, Other PELT SALTER History: cystic ovaries with surgery bilat ovaries. Musculoskeletal History: Reports: Fracture, Other (See Below) Other Musculoskeletal History: JOINT PAIN Neurological History: Reports: None Psychiatric History: Reports: Depression Endocrine/Metabolic History: Reports: Diabetes, Type II, Hypoparathyroidism, Obesity/BMI 30+, Other (See Below) Other Endocrine/Metabolic History: parathyroid tumor. HYPERCALCEMIA Hematologic History: Reports: None Immunologic History: Reports: None Oncologic (Cancer) History: Reports: None Dermatologic History: Reports: None - Infectious Disease History Infectious Disease History: Reports: Chicken Pox - Past Surgical History Head Surgeries/Procedures: Reports: None HEENT Surgical History: Reports: Oral Surgery, Tonsillectomy Cardiovascular Surgical History: Reports: None Respiratory Surgical History: Reports: None GI Surgical History: Reports: Appendectomy, Cholecystectomy, Colonoscopy Female Surgical History: Reports: Cystectomy, Salpingo-Oophorectomy, Other ( See Below) Other Female Surgeries/Procedures: LEFT OVARY REMOVED; HX LAP DIAG, INCLUDING HYSTEROSCOPY, ENDOMETRIAL POLYPECTOMY ET CURRETTAGE, FULGURATION OF ENDOMETRIOSIS. CYSTOURETHROSCOPY /W RMVL URETERAL STONES. URETEROSCOPY Endocrine Surgical History: Reports: Parathyroidectomy Other Endocrine Surgeries/Procedures: parathyroid tumor removed 12/23 Neurological Surgical History: Reports: None Musculoskeletal Surgical History: Reports: ORIF Other Musculoskeletal Surgeries/Procedures:: 5 ankle surgeries Oncologic Surgical History: Reports: None Dermatological Surgical History: Reports: None Social & Family History - Family History Family Medical History: Noncontributory - Caffeine Use Caffeine Use: Reports: Soda - Living Situation & Occupation Living situation: Reports: , with Spouse Occupation: Employed ED ROS GENERAL - Review of Systems Review Of Systems: See Below Constitutional: Reports: No Symptoms HEENT: Reports: No Symptoms Respiratory: Reports: No Symptoms Cardiovascular: Reports: Chest Pain. Denies: Palpitations GI/Abdominal: Reports: No Symptoms, Bloody Stool Musculoskeletal: Reports: No Symptoms Skin: Reports: No Symptoms Neurological: Reports: No Symptoms ED EXAM, GENERAL - Physical Exam Exam: See Below Exam Limited By: No Limitations General Appearance: Alert, No Apparent Distress. No: Anxious, Mild Distress Throat/Mouth: Normal Oropharynx Head: Atraumatic, Normocephalic Neck: Normal Inspection, Supple, Non-Tender Respiratory/Chest: No Respiratory Distress, Lungs Clear, Normal Breath Sounds Cardiovascular: Normal Peripheral Pulses, Regular Rate, Rhythm GI/Abdominal: Normal Bowel Sounds, Soft, Non-Tender Extremities: Normal Inspection, No Pedal Edema Neurological: Alert, Oriented, CN II-XII Intact, No Motor/Sensory Deficits Course - Vital Signs Text/Narrative:: EKG and CXR shows no acute changes , trop is neg, BS 416 rest of labs unremarkable . no signs of DKA and pt was given 10 humolog. pt is comfortable/ asymptomatic after GI cocktail.chest pain appear related to reflux disease , supportive mng was recommended with PCP f/u . Last Recorded V/S: Last Vital Signs Temp 36.7 C 10/22/19 17:45 Pulse 90 10/22/19 17:45 Resp 14 10/22/19 17:45 BP 135/83 10/22/19 17:45 Pulse Ox 99 10/22/19 17:45 - Orders/Labs/Meds Orders: Active Orders 24 hr Category Date Time Status Chest 1V Frontal [CR] Stat Exams 10/22/19 18:09 Taken CBC WITH AUTO DIFF [HEME] Stat Lab 10/22/19 18:10 Received Labs: Laboratory Tests 10/22/19 10/22/19 Range/Units 18:10 18:10 Sodium 136 (135-145) mmol/L Potassium 4.0 (3.5-5.3) mmol/L Chloride 96 L (100-110) mmol/L Carbon Dioxide 28 (21-32) mmol/L BUN 6 L (7-18) mg/dL Creatinine 0.5 L (0.55-1.02) mg/dL Est Cr Clr Drug Dosing TNP Estimated GFR (MDRD) > 60 (>60) BUN/Creatinine Ratio 12.0 (9-20) Glucose 416 H* (80-116) mg/dL Calcium 8.9 (8.6-10.2) mg/dL Total Bilirubin 0.6 (0.1-1.3) mg/dL AST 37 H D (5-25) IU/L ALT 47 H D (12-36) U/L Alkaline Phosphatase 126 H (56-112) IU/L Troponin I 0.036 (<0.017-0.056) ng/mL Total Protein 5.8 L (6.0-8.0) g/dL Albumin 3.6 (3.5-5.2) g/dL Globulin 2.2 g/dL Albumin/Globulin Ratio 1.6 Departure - Departure Time of Disposition: 19:44 Disposition: Home, Self-Care 01 Clinical Impression: Acid reflux disease - Discharge Information Referrals: Ilya Hummel MD [Primary Care Provider] - Sepsis Event Note - Focused Exam Vital Signs: Vital Signs Temp Pulse Resp BP Pulse Ox 10/22/19 17:45 36.7 C 90 14 135/83 99 Date Exam was Performed: 10/22/19 Time Exam was Performed: 19:21 - My Orders Last 24 Hours: My Active Orders 10/22/19 18:09 Chest 1V Frontal [CR] Stat 10/22/19 18:10 CBC WITH AUTO DIFF [HEME] Stat - Assessment/Plan Last 24 Hours: My Active Orders 10/22/19 18:09 Chest 1V Frontal [CR] Stat 10/22/19 18:10 CBC WITH AUTO DIFF [HEME] Stat
[2019-10-22] MEDS ORDERED: Alum Hydroxide/Mag Hydroxide 15 ML, Lidocaine 2% 15 ML PO ONE ×2 (19:24)
[2019-10-22] MEDS ORDERED: Insulin Lispro 100 Unit/ML 3 ML KwikPen SUBCUT ONE (19:50)
[2019-10-22 21:37] VITALS: BP 126/72; PULSE 86
--- NOTE | 2019-10-23 11:25 | CR ---
INDICATION: Chest pain. CHEST, 1 VIEW: Portable AP upright view of the chest, 10/22/19, was compared with 01/19/16 and 05/30/15, again revealing evidence of exogenous obesity. The heart did not appear enlarged. Overlying EKG leads are noted. An active infiltrate or effusion was not identified. IMPRESSION: No acute process - findings as noted above. MTDD
== END 2019-10-22 20:10 | disposition home or self-care (01) ==
LOC: FB.ED 17:42
DX: K21.9 Gastro-esophageal reflux disease without esophagitis (principal); I10 Essential (primary) hypertension; E11.9 Type 2 diabetes mellitus without complications; Z98.890 Other specified postprocedural states; Z90.49 Acquired absence of other specified parts of digestive tract; E66.9 Obesity, unspecified; Z88.8 Allergy status to other drugs, medicaments and biological substances; Z91.09 Other allergy status, other than to drugs and biological substances
CPT/HCPCS: 36415; 71045; 80053; 82962; 84484; 85025; 93005; 99285; A9270; J1815

== ENCOUNTER 2019-10-28 18:44 | Emergency (ER) | payer MEDICAID, OTHER ==
[2019-10-28] MEDS ORDERED: Gentamicin 0.3% Ophth Soln 5 ML Bottle EYERT ONE (18:45)
[2019-10-28 19:35] VITALS: BP 145/92; PULSE 88
--- NOTE | 2019-10-28 19:55 | EDM.PDOC ---
ED HPI GENERAL MEDICAL PROBLEM - General Chief Complaint: ENT Problem Stated Complaint: RT EYE PAIN AND WONT OPEN Time Seen by Provider: 10/28/19 19:50 Source of Information: Reports: Patient History Limitations: Reports: No Limitations - History of Present Illness INITIAL COMMENTS - FREE TEXT/NARRATIVE: Complains of right eye pain and redness with green discharge since this morning. She has also had a cough and rhinorrhea. She denies injury to the eye and does not wear contacts. States right sided vision is slightly blurred. Onset: Today Duration: Day(s): (1) - Related Data Allergies Allergy/AdvReac Type Severity Reaction Status Date / Time gabapentin [From Neurontin] Allergy Intermediate Difficulty Verified 10/28/19 19 :35 Breathing spironolactone Allergy Difficulty Verified 10/28/19 19:35 Swallowing sulfamethoxazole Allergy Diarrhea Verified 10/28/19 19:35 [From Bactrim] trimethoprim [From Bactrim] Allergy Diarrhea Verified 10/28/19 19:35 adhesives Allergy Rash Uncoded 11/26/18 00:15 Home Meds: Home Meds Albuterol [Proventil HFA] 2 puff INH Q4H PRN 08/16/18 [History] Albuterol/Ipratropium [DuoNeb 3.0-0.5 MG/3 ML] 3 ml INH QID PRN 08/16/18 [ History] Aluminum Chloride [Drysol] 1 applic TP BID PRN 08/16/18 [History] Cholecalciferol (Vitamin D3) [Vitamin D3] 1,000 units PO DAILY 08/16/18 [History ] Gemfibrozil [Lopid] 600 mg PO BIDAC 08/16/18 [History] Insulin Degludec [Tresiba Flextouch U-100] 70 unit SQ DAILY 08/16/18 [History] Lidocaine 5% 1 applic TOP ASDIRECTED PRN 08/16/18 [History] Midodrine 5 mg PO TIDAC 08/16/18 [History] Multivitamin with Minerals [Multiple Vitamin] 1 tab PO DAILY 08/16/18 [History] [place]-3/DHA/Epa/Fish Oil [[place]-3 Fish Oil 1,000 MG Sfgl] 1,000 mg PO DAILY 03/28 [History] Omeprazole/Sodium Bicarbonate [Omeprazole-Bicarb 40-1,100 Cap] 1 each PO DAILY 08/16/18 [History] Pramipexole [Mirapex] 0.5 mg PO QID PRN 08/16/18 [History] Rosuvastatin [Crestor] 10 mg PO DAILY 08/16/18 [History] SUMAtriptan 100 mg PO Q2H PRN 08/16/18 [History] Sennosides/Docusate Sodium [Senokot-S Tablet] 1 each PO BID PRN 08/16/18 [ History] Tamsulosin [Flomax] 0.4 mg PO DAILY PRN 08/16/18 [History] Triamcinolone Acetonide [Triamcinolone Acetonide 0.1% Crm] 1 applic TOP TID PRN 08/16/18 [History] Beclomethasone Dipropionate [Qvar 80 Mcg] 40 mcg INH DAILY 10/22/19 [History] Cyclobenzaprine [Flexeril] 10 mg PO TID 10/22/19 [History] Insulin Aspart [NovoLOG] 30 unit SUBCUT WITHBREAKFAST 10/22/19 [History] Insulin Aspart [NovoLOG] 30 unit WITHDINNER 10/22/19 [History] Insulin Degludec [Tresiba] 75 unit SQ DAILY 10/22/19 [History] Sucralfate 1 gm PO DAILY 10/22/19 [History] Zaleplon [Sonata] 5 - 10 mg PO BEDTIME 10/22/19 [History] buPROPion [buPROPion XL] 150 mg PO DAILY 10/22/19 [History] Past Medical History HEENT History: Reports: Impaired Vision Cardiovascular History: Reports: High Cholesterol, Hypertension, Syncope, Other (See Below) Other Cardiovascular History: POTS Respiratory History: Reports: Asthma, Sleep Apnea Gastrointestinal History: Reports: Cholelithiasis, Colon Polyp, GERD Other Gastrointestinal History: hx of bloody stools Genitourinary History: Reports: Renal Calculus, Renal Disease MANAGER LEGAL History: Reports: Endometriosis, Other MANAGER LEGAL History: cystic ovaries with surgery bilat ovaries. Musculoskeletal History: Reports: Fracture, Other (See Below) Other Musculoskeletal History: JOINT PAIN Neurological History: Reports: None Psychiatric History: Reports: Depression Other Psychiatric History: self harm in the past Endocrine/Metabolic History: Reports: Diabetes, Type II, Hypoparathyroidism, Obesity/BMI 30+, Other (See Below) Other Endocrine/Metabolic History: parathyroid tumor. HYPERCALCEMIA Hematologic History: Reports: None Immunologic History: Reports: None Oncologic (Cancer) History: Reports: None Dermatologic History: Reports: None - Infectious Disease History Infectious Disease History: Reports: Chicken Pox - Past Surgical History Head Surgeries/Procedures: Reports: None HEENT Surgical History: Reports: Oral Surgery, Tonsillectomy Cardiovascular Surgical History: Reports: None Respiratory Surgical History: Reports: None GI Surgical History: Reports: Appendectomy, Cholecystectomy, Colonoscopy Female Surgical History: Reports: Cystectomy, Salpingo-Oophorectomy, Other ( See Below) Other Female Surgeries/Procedures: LEFT OVARY REMOVED; HX LAP DIAG, INCLUDING HYSTEROSCOPY, ENDOMETRIAL POLYPECTOMY ET CURRETTAGE, FULGURATION OF ENDOMETRIOSIS. CYSTOURETHROSCOPY /W RMVL URETERAL STONES. URETEROSCOPY Endocrine Surgical History: Reports: Parathyroidectomy Other Endocrine Surgeries/Procedures: parathyroid tumor removed 12/23 Neurological Surgical History: Reports: None Musculoskeletal Surgical History: Reports: ORIF Other Musculoskeletal Surgeries/Procedures:: 5 ankle surgeries Oncologic Surgical History: Reports: None Dermatological Surgical History: Reports: None Social & Family History - Family History Family Medical History: Noncontributory - Caffeine Use Caffeine Use: Reports: Soda - Living Situation & Occupation Living situation: Reports: , with Spouse Occupation: Employed ED ROS GENERAL - Review of Systems Review Of Systems: Comprehensive ROS is negative, except as noted in HPI. ED EXAM GENERAL W FULL EYE - Physical Exam Exam: See Below Exam Limited By: No Limitations General Appearance: Alert, WD/WN Eye Exam: Right Eye: Conjunctival Injection (with exudate present), Bilateral Eye: EOMI, PERRL Eyelids: Bilateral: Normal Appearance Extraocular Movements: Bilateral: Intact Pupils: Normal Accommodation Pupillary Size: Bilateral: 3 mm Pupillary Reaction: Bilateral: Brisk Anterior Chamber: Bilateral: Normal Appearance Posterior Chamber: Bilateral: Unable to Examine ([facility] not equipped with a slit lamp) Throat/Mouth: Normal Voice, No Airway Compromise Head: Atraumatic, Normocephalic Respiratory/Chest: No Respiratory Distress, Lungs Clear, Normal Breath Sounds Cardiovascular: Regular Rate, Rhythm, No Murmur Course - Vital Signs Last Recorded V/S: Last Vital Signs Temp 36.6 C 10/28/19 19:20 Pulse 88 10/28/19 19:20 Resp 18 10/28/19 19:20 BP 145/92 H 10/28/19 19:20 Pulse Ox 99 10/28/19 19:20 - Re-Assessments/Exams Free Text/Narrative Re-Assessment/Exam: 10/28/19 19:57 Discharged home with gentamicin eye drops, 2 gtt qid OD x 7 days. Departure - Departure Time of Disposition: 19:57 Disposition: Home, Self-Care 01 Condition: Good Clinical Impression: Acute bacterial conjunctivitis of right eye URI (upper respiratory infection) Qualifiers: URI type: unspecified viral URI Qualified Code(s): J06.9 - Acute upper respiratory infection, unspecified - Discharge Information *PRESCRIPTION DRUG MONITORING PROGRAM REVIEWED*: No *COPY OF PRESCRIPTION DRUG MONITORING REPORT IN PATIENT MERRILL: Not Applicable Instructions: Upper Respiratory Infection, Adult, [id number], Bacterial Conjunctivitis Referrals: Ilya Hummel MD [Primary Care Provider] - Additional Instructions: Instill gentamicin drops as directed. Follow up with Optometry in 2 days if symptoms don't improve, sooner if symptoms worsen. Sepsis Event Note - Focused Exam Vital Signs: Vital Signs Temp Pulse Resp BP Pulse Ox 10/28/19 19:20 36.6 C 88 18 145/92 H 99 Date Exam was Performed: 10/28/19 Time Exam was Performed: 19:50
== END 2019-10-28 20:15 | disposition home or self-care (01) ==
LOC: FB.ED 18:44
DX: H10.31 Unspecified acute conjunctivitis, right eye (principal); B96.89 Other specified bacterial agents as the cause of diseases classified elsewhere; I10 Essential (primary) hypertension; E11.9 Type 2 diabetes mellitus without complications; E66.9 Obesity, unspecified; Z98.890 Other specified postprocedural states; Z90.49 Acquired absence of other specified parts of digestive tract; Z90.722 Acquired absence of ovaries, bilateral; Z79.4 Long term (current) use of insulin; Z79.899 Other long term (current) drug therapy; Z88.1 Allergy status to other antibiotic agents; Z91.09 Other allergy status, other than to drugs and biological substances
CPT/HCPCS: 99283; A9270

== ENCOUNTER 2019-11-23 23:00 | Emergency (ER) | payer OTHER ==
[2019-11-23] MEDS ORDERED: Insulin Regular, Human 100 Units/ML 3 ML Vial SUBCUT ONE (23:41)
[2019-11-23] MEDS: Sodium Chloride 0.9% 1,000 ML IV SCH (23:45)
--- NOTE | 2019-11-23 23:53 | EDM.PDOC ---
ED HPI GENERAL MEDICAL PROBLEM - General Chief Complaint: Diabetic Complaint Time Seen by Provider: 11/23/19 23:15 Source of Information: Reports: Patient History Limitations: Reports: No Limitations - History of Present Illness INITIAL COMMENTS - FREE TEXT/NARRATIVE: pt started on oral prednisone today for sore throat BS noted to have increased to > 500 or unreadable on her meter so she came in no [place] , no dizziness states she was not told blood sugar will be elevated while on the prednisone pt still has sore throat Onset: Today Onset Date: 11/23/19 Duration: Waxing/Waning Location: Reports: Other (throat) Quality: Reports: Ache, Dull Severity: Moderate Improves with: Reports: None Worsens with: Reports: None Context: Reports: Sick Contact Associated Symptoms: Reports: Cough, Malaise throat, hands and legs Pain Score (Numeric/FACES): 7 - Related Data Allergies Allergy/AdvReac Type Severity Reaction Status Date / Time gabapentin [From Neurontin] Allergy Intermediate Difficulty Verified 11/24/19 09 :13 Breathing acetaminophen Allergy Other Verified 11/24/19 09:13 [From Darvocet-N] propoxyphene Allergy Other Verified 11/24/19 09:13 [From Darvocet-N] spironolactone Allergy Difficulty Verified 11/24/19 09:13 Swallowing sulfamethoxazole Allergy Diarrhea Verified 11/24/19 09:13 [From Bactrim] trimethoprim [From Bactrim] Allergy Diarrhea Verified 11/24/19 09:13 adhesives Allergy Rash Uncoded 11/24/19 09:13 Home Meds: Home Meds Albuterol [Proventil HFA] 2 puff INH Q4H PRN 08/16/18 [History] Cholecalciferol (Vitamin D3) [Vitamin D3] 1,000 units PO DAILY 08/16/18 [History ] Gemfibrozil [Lopid] 600 mg PO BIDAC 08/16/18 [History] Lidocaine 5% 1 applic TOP ASDIRECTED PRN 08/16/18 [History] Pramipexole [Mirapex] 1 mg PO ASDIRECTED 08/16/18 [History] Rosuvastatin [Crestor] 20 mg PO DAILY 08/16/18 [History] Sennosides/Docusate Sodium [Senokot-S Tablet] 1 each PO BID PRN 08/16/18 [ History] Tamsulosin [Flomax] 0.4 mg PO DAILY PRN 08/16/18 [History] Triamcinolone Acetonide [Triamcinolone Acetonide 0.1% Crm] 1 applic TOP TID PRN 08/16/18 [History] Beclomethasone Dipropionate [Qvar 80 Mcg] 2 puff INH BID 10/22/19 [History] Cyclobenzaprine [Flexeril] 10 mg PO TID PRN 10/22/19 [History] Insulin Aspart [NovoLOG] 35 unit SUBCUT ACDINNER 10/22/19 [History] Insulin Degludec [Tresiba] 75 unit SQ DAILY 10/22/19 [History] Sucralfate 1 gm PO QID 10/22/19 [History] Zaleplon [Sonata] 5 - 10 mg PO BEDTIME 10/22/19 [History] buPROPion [buPROPion XL] 150 mg PO DAILY 10/22/19 [History] Celecoxib [CeleBREX] 200 mg PO DAILY 11/02/19 [History] Insulin Aspart [NovoLOG] 30 units SQ BIDAC PRN 11/02/19 [History] Insulin Aspart [NovoLOG] 35 unit SQ ACLUNCH 11/02/19 [History] Codeine/guaiFENesin [guaiFENesin-Codeine Syrup] 5 ml PO Q4H PRN 11/06/19 [ History] Dicyclomine [Bentyl] 20 mg PO TIDMEALS 11/06/19 [History] FLUoxetine HCl [Fluoxetine HCl] 40 mg PO DAILY 11/06/19 [History] Fluticasone Propionate [Flonase] 1 dose DONAVON ASDIRECTED 11/06/19 [History] Mineral Oil/Pet Hy-Phl Oint [Aquaphor Healing Ointment] 50 gm TOP ASDIRECTED PRN 11/06/19 [History] Omeprazole Magnesium [Prilosec Otc] 20 mg PO DAILY 11/06/19 [History] Ondansetron [Zofran ODT] 4 mg PO Q4H PRN 11/06/19 [History] SUMAtriptan Succinate [Imitrex] 100 mg PO Q2H PRN 11/06/19 [History] hydrOXYzine pamoate [Vistaril] 25 mg PO TID PRN 11/06/19 [History] Acetaminophen 325 mg PO ASDIRECTED PRN 11/23/19 [History] Albuterol/Ipratropium [DuoNeb 3.0-0.5 MG/3 ML] 3 ml .XX QID PRN 11/23/19 [ History] Aluminum Chloride [Drysol] 1 applic TOP BID 11/23/19 [History] Aspirin [Halfprin] 81 mg PO DAILY 11/23/19 [History] Cholecalciferol (Vitamin D3) [Vitamin D3] 1,000 units PO DAILY 11/23/19 [History ] Cholestyramine/Sucrose [Cholestyramine] 4 gm PO BID 11/23/19 [History] Clobetasol [Temovate 0.05% Oint] 1 applic TOP WEEKLY PRN 11/23/19 [History] Fish Oil/[place]-3 Fatty Acids [Fish Oil 1,000 MG] 1 gm PO DAILY 11/23/19 [History ] Ibuprofen 200 mg PO ASDIRECTED PRN 11/23/19 [History] Insulin Degludec [Tresiba Flextouch U-100] 75 unit SQ DAILY 11/23/19 [History] Lidocaine 5% 1 applic TOP ASDIRECTED PRN 11/23/19 [History] Meclizine HCl 12.5 mg PO ASDIRECTED PRN 11/23/19 [History] Midodrine 5 mg PO TIDMEALS 11/23/19 [History] Mineral Oil/Pet Hy-Phl Oint [Aquaphor Healing Ointment] 1 applic TOP BID PRN [History] Multivitamin with Minerals [Multiple Vitamin] 1 ea PO DAILY 11/23/19 [History] Pantoprazole Sodium 40 mg PO DAILY 11/23/19 [History] Amoxicillin/Potassium Clav [Augmentin 875-125 Tablet] 1 each PO Q12HR #20 tablet 11/24/19 [Rx] Ofloxacin 10 ml OP QID #10 ml 11/24/19 [Rx] Past Medical History HEENT History: Reports: Impaired Vision Cardiovascular History: Reports: High Cholesterol, Hypertension, Syncope, Other (See Below) Other Cardiovascular History: POTS Respiratory History: Reports: Asthma, Sleep Apnea Other Respiratory History: CPAP machine. Gastrointestinal History: Reports: Cholelithiasis, Colon Polyp, GERD Other Gastrointestinal History: hx of bloody stools Genitourinary History: Reports: Renal Calculus, Renal Disease DELIVERY MGR History: Reports: Endometriosis, Other DELIVERY MGR History: cystic ovaries with surgery bilat ovaries. Musculoskeletal History: Reports: Fracture, Other (See Below) Other Musculoskeletal History: JOINT PAIN Neurological History: Reports: None Psychiatric History: Reports: Depression Other Psychiatric History: self harm in the past Endocrine/Metabolic History: Reports: Diabetes, Type II, Hypoparathyroidism, Obesity/BMI 30+, Other (See Below) Other Endocrine/Metabolic History: parathyroid tumor. HYPERCALCEMIA Hematologic History: Reports: None Immunologic History: Reports: None Oncologic (Cancer) History: Reports: None Dermatologic History: Reports: None - Infectious Disease History Infectious Disease History: Reports: Chicken Pox - Past Surgical History Head Surgeries/Procedures: Reports: None HEENT Surgical History: Reports: Oral Surgery, Tonsillectomy Cardiovascular Surgical History: Reports: None Respiratory Surgical History: Reports: None GI Surgical History: Reports: Appendectomy, Cholecystectomy, Colonoscopy Female Surgical History: Reports: Cystectomy, Salpingo-Oophorectomy, Other ( See Below) Other Female Surgeries/Procedures: LEFT OVARY REMOVED; HX LAP DIAG, INCLUDING HYSTEROSCOPY, ENDOMETRIAL POLYPECTOMY ET CURRETTAGE, FULGURATION OF ENDOMETRIOSIS. CYSTOURETHROSCOPY /W RMVL URETERAL STONES. URETEROSCOPY Endocrine Surgical History: Reports: Parathyroidectomy Other Endocrine Surgeries/Procedures: parathyroid tumor removed 12/23 Neurological Surgical History: Reports: None Musculoskeletal Surgical History: Reports: ORIF Other Musculoskeletal Surgeries/Procedures:: 5 ankle surgeries Oncologic Surgical History: Reports: None Dermatological Surgical History: Reports: None Social & Family History - Family History Family Medical History: Noncontributory - Caffeine Use Caffeine Use: Reports: Soda - Living Situation & Occupation Living situation: Reports: , with Spouse Occupation: Employed ED ROS GENERAL - Review of Systems Review Of Systems: Comprehensive ROS is negative, except as noted in HPI. Constitutional: Reports: Weakness, Fatigue HEENT: Reports: No Symptoms Respiratory: Reports: No Symptoms Cardiovascular: Reports: No Symptoms Endocrine: Reports: Fatigue, High Glucose, Polydypsia, Polyuria : Reports: Frequency Musculoskeletal: Reports: No Symptoms Skin: Reports: No Symptoms Neurological: Reports: No Symptoms Psychiatric: Reports: No Symptoms Hematologic/Lymphatic: Reports: No Symptoms ED EXAM GENERAL NO PERIP PULSE - Physical Exam Exam: See Below Exam Limited By: No Limitations General Appearance: Alert, WD/WN, Obese Eye Exam: Bilateral Eye: EOMI Ears: Normal External Exam Nose: Normal Inspection Throat/Mouth: Normal Oropharynx Head: Normocephalic Neck: Supple, Non-Tender Respiratory/Chest: Lungs Clear Cardiovascular: Regular Rate, Rhythm GI/Abdominal: Soft, Non-Tender Extremities: No Pedal Edema Neurological: Alert, Oriented, CN II-XII Intact, Normal Cognition, Normal Reflexes, No Motor/Sensory Deficits Psychiatric: Normal Affect Skin Exam: Warm Course - Vital Signs Last Recorded V/S: Last Vital Signs Temp 36.1 C 11/24/19 03:00 Pulse 87 11/24/19 03:00 Resp 17 11/24/19 03:00 BP 135/82 11/24/19 03:00 Pulse Ox 98 11/24/19 03:00 - Orders/Labs/Meds Orders: Active Orders 24 hr Category Date Time Status Accu Check [Blood Glucose Check, Bedside] [] ONETIME Care 11/24/19 06:00 Active CULTURE STREP A CONFIRMATION [] Stat Lab 11/24/19 07:15 Results STREP SCRN A RAPID W CULT CONF [] Stat Lab 11/24/19 07:15 Results Labs: Laboratory Tests 11/23/19 11/23/19 11/23/19 Range/Units 23:19 23:35 23:35 WBC 10.1 (4.5-12.0) X10-3/uL RBC 5.29 H (3.23-5.20) x10(6)uL Hgb 13.6 (11.5-15.5) g/dL Hct 41.9 (30.0-51.3) % MCV 79.2 L (80-96) fL MCH 25.7 L (27.7-33.6) pg MCHC 32.5 (32.2-35.4) g/dL RDW 15.8 H (11.5-15.5) % Plt Count 337 (125-369) X10(3)uL MPV 9.5 (7.4-10.4) fL Neut % (Auto) 54.7 (46-82) % Lymph % (Auto) 38.4 H (13-37) % [place] % (Auto) 5.4 (4-12) % Eos % (Auto) 1 (1.0-5.0) % Baso % (Auto) 1 (0-2) % Neut # (Auto) 5.5 (1.6-8.3) # Lymph # (Auto) 3.9 (0.6-5.0) # [place] # (Auto) 0.5 (0.0-1.3) # Eos # (Auto) 0.1 (0.0-0.8) # Baso # (Auto) 0.1 (0.0-0.2) # Sodium 139 (135-145) mmol/L Potassium 4.7 (3.5-5.3) mmol/L Chloride 98 L (100-110) mmol/L Carbon Dioxide 30 (21-32) mmol/L BUN 13 (7-18) mg/dL Creatinine 0.8 (0.55-1.02) mg/dL Est Cr Clr Drug Dosing 78.87 mL/min Estimated GFR (MDRD) > 60 (>60) BUN/Creatinine Ratio 16.3 (9-20) Glucose 630 H* D (80-116) mg/dL Calcium 9.2 (8.6-10.2) mg/dL Total Bilirubin 0.6 (0.1-1.3) mg/dL AST 37 H (5-25) IU/L ALT 40 H D (12-36) U/L Alkaline Phosphatase 121 H (56-112) IU/L C-Reactive Protein (0.5-0.9) mg/dL Total Protein 6.5 (6.0-8.0) g/dL Albumin 3.7 (3.5-5.2) g/dL Globulin 2.8 g/dL Albumin/Globulin Ratio 1.3 Urine Color Yellow (YELLOW) Urine Appearance Clear (CLEAR) Urine pH 5.0 (5.0-6.5) Ur Specific [place] 1.010 (1.010-1.025) Urine Protein Negative (NEGATIVE) mg/dL Urine Glucose (UA) >1000 H (NORMAL) mg/dL Urine Ketones Negative (NEGATIVE) mg/dL Urine Occult Blood Negative (NEGATIVE) Urine Nitrite Negative (NEGATIVE) Urine Bilirubin Negative (NEGATIVE) Urine Urobilinogen Normal (NEGATIVE) mg/dL Ur Leukocyte Esterase Negative (NEGATIVE) Urine RBC 0-5 (0-5) Urine WBC 0-5 (0-5) Ur Squamous Epith Cells Occasional (NS,R,O) Urine Bacteria Rare H (NS) 11/23/19 11/24/19 Range/Units 23:35 02:15 WBC (4.5-12.0) X10-3/uL RBC (3.23-5.20) x10(6)uL Hgb (11.5-15.5) g/dL Hct (30.0-51.3) % MCV (80-96) fL MCH (27.7-33.6) pg MCHC (32.2-35.4) g/dL RDW (11.5-15.5) % Plt Count (125-369) X10(3)uL MPV (7.4-10.4) fL Neut % (Auto) (46-82) % Lymph % (Auto) (13-37) % [place] % (Auto) (4-12) % Eos % (Auto) (1.0-5.0) % Baso % (Auto) (0-2) % Neut # (Auto) (1.6-8.3) # Lymph # (Auto) (0.6-5.0) # [place] # (Auto) (0.0-1.3) # Eos # (Auto) (0.0-0.8) # Baso # (Auto) (0.0-0.2) # Sodium 137 (135-145) mmol/L Potassium 4.3 (3.5-5.3) mmol/L Chloride 100 (100-110) mmol/L Carbon Dioxide 28 (21-32) mmol/L BUN 12 (7-18) mg/dL Creatinine 0.6 (0.55-1.02) mg/dL Est Cr Clr Drug Dosing 105.16 mL/min Estimated GFR (MDRD) > 60 (>60) BUN/Creatinine Ratio 20.0 (9-20) Glucose 450 H* D (80-116) mg/dL Calcium 8.6 (8.6-10.2) mg/dL Total Bilirubin (0.1-1.3) mg/dL AST (5-25) IU/L ALT (12-36) U/L Alkaline Phosphatase (56-112) IU/L C-Reactive Protein < 0.2 L (0.5-0.9) mg/dL Total Protein (6.0-8.0) g/dL Albumin (3.5-5.2) g/dL Globulin g/dL Albumin/Globulin Ratio Urine Color (YELLOW) Urine Appearance (CLEAR) Urine pH (5.0-6.5) Ur Specific [place] (1.010-1.025) Urine Protein (NEGATIVE) mg/dL Urine Glucose (UA) (NORMAL) mg/dL Urine Ketones (NEGATIVE) mg/dL Urine Occult Blood (NEGATIVE) Urine Nitrite (NEGATIVE) Urine Bilirubin (NEGATIVE) Urine Urobilinogen (NEGATIVE) mg/dL Ur Leukocyte Esterase (NEGATIVE) Urine RBC (0-5) Urine WBC (0-5) Ur Squamous Epith Cells (NS,R,O) Urine Bacteria (NS) Meds: Medications Discontinued Medications Generic Name Dose Route Start Last Admin Trade Name Freq PRN Reason Stop Dose Admin Amoxicillin/Clavulanate Potassium 1 tab 11/24/19 07:15 11/24/19 07:51 Augmentin 875 Mg/125 Mg PO 11/24/19 07:16 1 tab ONETIME ONE Administration Ceftriaxone Sodium 1 gm 11/24/19 06:58 11/24/19 07:07 Rocephin IVPUSH 11/24/19 06:59 1 gm ONETIME ONE Administration Sodium Chloride 1,000 mls @ 999 mls/hr 11/23/19 23:30 11/24/19 02:40 Normal Saline IV 999 mls/hr ASDIRECTED JERRY Administration Sodium Chloride 1,000 mls @ 999 mls/hr 11/24/19 01:00 Normal Saline IV ASDIRECTED JERRY Sodium Chloride 1,000 mls @ 250 mls/hr 11/24/19 03:56 11/24/19 03:58 Normal Saline IV 250 mls/hr ASDIRECTED JERRY Administration Insulin Aspart 30 unit 11/24/19 07:15 Novolog Mix 70-30 SUBCUT 11/24/19 07:16 NOW STA Insulin Glargine 10 units 11/24/19 00:46 11/24/19 00:54 Lantus Solostar SUBCUT 11/24/19 00:47 10 units NOW STA Administration Insulin Human Regular 10 unit 11/24/19 23:36 Humulin R SUBCUT 11/24/19 23:37 ONETIME ONE Insulin Human Regular 10 unit 11/23/19 23:41 02/13/20 23:50 Humulin R SUBCUT 11/23/19 23:42 10 units ONETIME ONE Administration Insulin Human Regular 10 unit 11/24/19 02:49 11/24/19 02:50 Humulin R SUBCUT 11/24/19 02:50 10 units ONETIME ONE Administration Insulin Lispro Protam/Lispro Human 30 unit 11/24/19 07:50 11/24/19 07:51 Humalog Mix 75-25 SUBCUT 11/24/19 07:51 30 unit ONETIME ONE Administration - Re-Assessments/Exams Free Text/Narrative Re-Assessment/Exam: 11/24/19 01:14 pt started on IVF and given Regular insulin 10 units, BS reduced from 630 to 483 pt given Lantus and 2nd liter of fluid will continue to monitor BS Free Text/Narrative Re-Assessment/Exam: 11/24/19 07:49 this am reviewed Overnight BS stabilized , reduced to 250, patient is able to eat , given Novolog with meal IVF stopped , Noted to have bilateral eye discharge sent home on Ofloxacin eye drops and Augmentin for the sore throat pt told to stop prednisone Departure - Departure Time of Disposition: 08:10 Disposition: Home, Self-Care 01 Clinical Impression: Hyperglycemia, Steroid-induced hyperglycemia, Acute bacterial pharyngitis, Acute bacterial conjunctivitis of both eyes Diabetes mellitus, insulin dependent (IDDM), uncontrolled Qualifiers: Glycemic state: with hyperglycemia Qualified Code(s): E10.65 - Type 1 diabetes mellitus with hyperglycemia - Discharge Information *PRESCRIPTION DRUG MONITORING PROGRAM REVIEWED*: Not Applicable *COPY OF PRESCRIPTION DRUG MONITORING REPORT IN PATIENT MERRILL: Not Applicable Prescriptions: Amoxicillin/Potassium Clav [Augmentin 875-125 Tablet] 1 each PO Q12HR #20 tablet Ofloxacin 10 ml OP QID #10 ml Instructions: Hyperglycemia, [id number] Referrals: Ilya Hummel MD [Primary Care Provider] - Forms: ED Department Discharge Additional Instructions: Continue with Tresiba 80 units once daily in am Continue with Novolog 30 units 2times daily ( AM and PM) and Novolog 35 units at NOON Stop prednisone Continue with Inhaler : Qvar 2 puffs bid Make appt to see your doctor on Wednesday Sepsis Event Note - Evaluation Sepsis Screening Result: No Definite Risk - Focused Exam Date Exam was Performed: 02/15/20 Time Exam was Performed: 06:45 - My Orders Last 24 Hours: My Active Orders 11/24/19 06:00 Accu Check [Blood Glucose Check, Bedside] [] ONETIME 11/24/19 07:15 CULTURE STREP A CONFIRMATION [] Stat STREP SCRN A RAPID W CULT CONF [] Stat - Assessment/Plan Last 24 Hours: My Active Orders 11/24/19 06:00 Accu Check [Blood Glucose Check, Bedside] [] ONETIME 11/24/19 07:15 CULTURE STREP A CONFIRMATION [] Stat STREP SCRN A RAPID W CULT CONF [] Stat
[2019-11-24] MEDS ORDERED: Insulin Glargine,Human Rec. Analog 100 Units/ML 3 ML Pen SUBCUT STA (00:46)
[2019-11-24] MEDS ORDERED: Sodium Chloride 0.9% 1,000 ML IV SCH ×2 (01:00→03:56)
[2019-11-24] MEDS: Sodium Chloride 0.9% 1,000 ML IV SCH ×2 (01:05→02:40)
[2019-11-24] MEDS ORDERED: Insulin Regular, Human 100 Units/ML 3 ML Vial SUBCUT ONE ×2 (02:49→23:36)
[2019-11-24 04:00] VITALS: BP 135/82; PULSE 87
[2019-11-24] MEDS ORDERED: cefTRIAXone 1 GM Vial IVPUSH ONE (06:58)
[2019-11-24] MEDS ORDERED: Insuln Aspart Prot/Insulin Aspart 100 Units/ML 3 ML FlexPen SUBCUT STA (07:15)
[2019-11-24] MEDS ORDERED: Amoxicillin/Clavulanate K 875-125 MG Tab PO ONE (07:15)
[2019-11-24] MEDS ORDERED: Insulin Lispro Protamine/Lispro 75-25 100 Units/ML 3 ML KwikPen SUBCUT ONE (07:50)
== END 2019-11-24 08:10 | disposition home or self-care (01) ==
LOC: FB.ED 23:00
DX: J02.8 Acute pharyngitis due to other specified organisms (principal); B96.89 Other specified bacterial agents as the cause of diseases classified elsewhere; H10.33 Unspecified acute conjunctivitis, bilateral; E11.65 Type 2 diabetes mellitus with hyperglycemia; I10 Essential (primary) hypertension; Z88.8 Allergy status to other drugs, medicaments and biological substances; Z88.2 Allergy status to sulfonamides; Z79.899 Other long term (current) drug therapy; Z79.4 Long term (current) use of insulin
CPT/HCPCS: 36410; 36415; 80048; 80053; 81001; 82962; 85025; 86140; 87081; 87880; 96360; 96361; 96374; 99284; A9270; J0696; J1815; J7030

== ENCOUNTER 2019-12-11 08:26 | Day surgery (SDC) | payer OTHER ==
[~2019-12-11 08:26] MED LIST: Lactated Ringers 1,000 ML IV SCH; Sodium Chloride 0.9% 10 ML Syringe FLUSH PRN
[2019-12-11] MEDS ORDERED: Propofol 200 MG/20 ML SDV IV ONE (08:27)
[2019-12-11] MEDS ORDERED: Lidocaine 1% PF 2 ML SDV INJECT ONE (08:27)
--- NOTE | 2019-12-11 10:51 | PCM.OPNOTE ---
- General Post-Op/Procedure Note Date of Surgery/Procedure: 12/11/19 Operative Procedure(s): c scope with bx cold forcep Findings: cecal polyp otherwise normal colon Pre Op Diagnosis: hx of diarrhea. abd pain. bleeding per rectum. Anesthesia Technique: ISABELLA Primary Surgeon: León Trevizo Anesthesia Provider: Ilya Hill Pathology: random biopsies colon polyp Complications: None Condition: Good Free Text/Narrative:: see dictation
[2019-12-11 11:16] VITALS: BP 123/82; PULSE 79
--- NOTE | 2019-12-11 13:32 | OR ---
DATE OF OPERATION: 12/11/2019 SURGEON: León Trevizo MD PROCEDURE PERFORMED: Colonoscopy with cold forceps biopsy. PREOPERATIVE DIAGNOSES: History of abdominal pain, diarrhea, and blood in stool. POSTOPERATIVE DIAGNOSIS: Polyp of the ascending colon and otherwise grossly normal mucosa. INDICATIONS FOR PROCEDURE: This is a 39-year-old white female who presents with the above-mentioned complaints. She was offered and accepted a colonoscopy. DESCRIPTION OF OPERATION: After an excellent IV sedation was administered, digital rectal exam was performed. No marked abnormality was noted. Flexible colonoscope was inserted and advanced to the cecum. Prep was excellent. Following findings were noted. Ascending colon, in the cecum, small hyperplastic-appearing polyp, biopsied with cold biopsy forceps and sent for permanent, otherwise unremarkable. Random biopsies were taken. Transverse colon, unremarkable. Random biopsies were taken. Descending colon, unremarkable. Random biopsies were taken. Sigmoid and rectum, unremarkable. Random biopsies were taken. The patient tolerated the procedure well, was taken to recovery in good condition. Results will be sent by letter. /[id number] /MODL
== END 2019-12-11 11:26 | disposition home or self-care (01) ==
LOC: FB.SDS 08:26
PROVIDERS: ATTEND Surgery
DX: K63.5 Polyp of colon (principal); J45.909 Unspecified asthma, uncomplicated; E66.01 Morbid (severe) obesity due to excess calories; E11.319 Type 2 diabetes mellitus with unspecified diabetic retinopathy without macular edema; E78.2 Mixed hyperlipidemia; G47.33 Obstructive sleep apnea (adult) (pediatric); Z99.89 Dependence on other enabling machines and devices; Z98.890 Other specified postprocedural states; Z68.43 Body mass index [BMI] 50.0-59.9, adult; Z79.4 Long term (current) use of insulin; Z79.899 Other long term (current) drug therapy; Z88.8 Allergy status to other drugs, medicaments and biological substances; Z87.19 Personal history of other diseases of the digestive system
CPT/HCPCS: 45380; 88305; J2001; J2704; J7120

== ENCOUNTER 2020-08-24 22:07 | Emergency (ER) | payer OTHER ==
[2020-08-24] MEDS ORDERED: hydrOXYzine HCl 50 MG/ML SDV IM ONE (22:31)
[2020-08-24] MEDS ORDERED: Ketorolac 60 MG/2 ML SDV IM ONE (22:31)
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
[2020-08-25 02:33] VITALS: BP 148/98; PULSE 96
== END 2020-08-24 23:11 | disposition home or self-care (01) ==
LOC: FB.ED 22:07
DX: R51.9 Headache, unspecified (principal); M25.512 Pain in left shoulder; E78.00 Pure hypercholesterolemia, unspecified; I10 Essential (primary) hypertension; J45.909 Unspecified asthma, uncomplicated; K21.9 Gastro-esophageal reflux disease without esophagitis; F32.9 Major depressive disorder, single episode, unspecified; E11.9 Type 2 diabetes mellitus without complications; E20.9 Hypoparathyroidism, unspecified; E66.9 Obesity, unspecified; Z68.43 Body mass index [BMI] 50.0-59.9, adult; Z88.8 Allergy status to other drugs, medicaments and biological substances; Z88.6 Allergy status to analgesic agent; Z88.2 Allergy status to sulfonamides; Z91.048 Other nonmedicinal substance allergy status; Z79.899 Other long term (current) drug therapy; Z79.4 Long term (current) use of insulin; Z79.82 Long term (current) use of aspirin; Y04.0XXA Assault by unarmed brawl or fight, initial encounter
CPT/HCPCS: 96372; 99283; J1885; J3410

== ENCOUNTER 2021-01-17 17:08 | Emergency (ER) | payer MEDICARE, MEDICAID ==
[2021-01-17] MEDS ORDERED: Dexamethasone 4 MG/ML 5 ML MDV IVPUSH ONE (17:19)
[2021-01-17] MEDS ORDERED: guaiFENesin 100 MG/5 ML Soln 5 ML UD Cup PO ONE (17:19)
[2021-01-17] MEDS ORDERED: Doxycycline 100 MG in Sodium Chloride 0.9% 100 ML IV ONE (17:20)
--- NOTE | 2021-01-17 17:24 | EDM.PDOC ---
ED HPI GENERAL MEDICAL PROBLEM - General Chief Complaint: Respiratory Problem Stated Complaint: SOB Time Seen by Provider: 01/17/21 17:15 Source of Information: Reports: Patient History Limitations: Reports: No Limitations - History of Present Illness INITIAL COMMENTS - FREE TEXT/NARRATIVE: Sent in from the clinic Pt with known asthma has had worsening productive cough since 01/10/2021 has productive cough , sob at rest and with exertion has been taking albuterol inhaler in consistently today tested positive for COVID in clinic Was not able to go to [facility] for infusion of antibodies Onset: Gradual Onset Date: 01/10/21 Duration: Getting Worse Location: Reports: Chest Quality: Reports: Dull Severity: Moderate Improves with: Reports: Medication (albuterol inhaler) Worsens with: Reports: Breathing, Movement Context: Reports: Sick Contact Associated Symptoms: Reports: Cough, Fever/Chills, Headaches, Loss of Appetite, Malaise, Shortness of Breath 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 (albuterol inhaler) - Related Data Allergies Allergy/AdvReac Type Severity Reaction Status Date / Time gabapentin [From Neurontin] Allergy Intermediate Difficulty Verified 08/24/20 22:55 Breathing acetaminophen Allergy Unknown Other Verified 08/24/20 22:55 [From Darvocet-N] propoxyphene Allergy Unknown Other Verified 08/24/20 22:55 [From Darvocet-N] spironolactone Allergy Difficulty Verified 08/24/20 22:55 Swallowing sulfamethoxazole Allergy Diarrhea Verified 08/24/20 22:55 [From Bactrim] trimethoprim [From Bactrim] Allergy Diarrhea Verified 08/24/20 22:55 adhesives Allergy Rash Uncoded 08/24/20 22:55 Home Meds: Home Meds Albuterol [Proventil HFA] 2 puff INH Q4H PRN 08/16/18 [History] Pramipexole [Mirapex] 1 mg PO DAILY 08/16/18 [History] Beclomethasone Dipropionate [Qvar 80 Mcg] 2 puff INH BID 10/22/19 [History] buPROPion [buPROPion XL] 150 mg PO DAILY 10/22/19 [History] FLUoxetine HCl [Fluoxetine HCl] 40 mg PO DAILY 11/06/19 [History] Midodrine 5 mg PO TIDMEALS 02/13/20 [History] Insulin Regular, Human [Humulin R U-500 Kwikpen] 100 unit SQ BEDTIME 12/07/19 [History] Insulin Regular, Human [Humulin R U-500 Kwikpen] 110 unit SQ ACLUNCH 12/07/19 [History] Benzonatate [Tessalon Perle] 200 mg PO TID #90 capsule 01/17/21 [Rx] Doxycycline [Vibra-Tabs] 100 mg PO Q12HR #20 tab 01/17/21 [Rx] Folic Acid 1 mg PO DAILY 01/17/21 [History] Hydroxychloroquine [Plaquenil] 200 mg PO BID 01/17/21 [History] Rosuvastatin [Crestor] 20 mg PO DAILY 01/17/21 [History] gemfibroziL [Gemfibrozil] 600 mg PO TIDMEALS 01/17/21 [History] guaiFENesin [Mucus Relief ER] 600 mg PO BID #30 tab.er.12h 01/17/21 [Rx] Past Medical History HEENT History: Reports: Impaired Vision Cardiovascular History: Reports: High Cholesterol, Hypertension, Syncope, Other (See Below) Other Cardiovascular History: POTS Respiratory History: Reports: Asthma, Sleep Apnea Other Respiratory History: CPAP machine. 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 Musculoskeletal History: Reports: Fracture, Other (See Below) Other Musculoskeletal History: JOINT PAIN Neurological History: Reports: None Psychiatric History: Reports: Depression Other Psychiatric History: self harm in the past Endocrine/Metabolic History: Reports: Diabetes, Type II, Hypoparathyroidism, Obesity/BMI 30+, Other (See Below) Other Endocrine/Metabolic History: parathyroid tumor. HYPERCALCEMIA Hematologic History: Reports: None Immunologic History: Reports: None Oncologic (Cancer) History: Reports: None Dermatologic History: Reports: None - Infectious Disease History Infectious Disease History: Reports: Chicken Pox - Past Surgical History GI Surgical History: Reports: Appendectomy, Cholecystectomy, Colonoscopy Social & Family History - Family History Family Medical History: No Pertinent Family History - Caffeine Use Caffeine Use: Reports: Soda - Living Situation & Occupation Living situation: Reports: , with Spouse Occupation: Employed ED ROS GENERAL - Review of Systems Review Of Systems: See Below Constitutional: Reports: Fever, Chills, Malaise, Fatigue HEENT: Reports: Throat Pain Respiratory: Reports: Shortness of Breath, Wheezing, Cough, Sputum Cardiovascular: Reports: Dyspnea on Exertion Endocrine: Reports: No Symptoms GI/Abdominal: Reports: No Symptoms : Reports: No Symptoms Musculoskeletal: Reports: No Symptoms Skin: Reports: No Symptoms Neurological: Reports: Headache Psychiatric: Reports: No Symptoms Hematologic/Lymphatic: Reports: No Symptoms Immunologic: Reports: No Symptoms ED EXAM, GENERAL - Physical Exam Exam: See Below Exam Limited By: No Limitations General Appearance: Alert, WD/WN, Anxious, Obese Eye Exam: Bilateral Eye: EOMI Ears: Normal TMs Ear Exam: Bilateral Ear: TM normal Nose: Normal Inspection, Nasal Drainage, Clear Rhinorrhea Throat/Mouth: Normal Oropharynx Head: Atraumatic, Normocephalic Neck: Supple, Non-Tender Respiratory/Chest: Decreased Breath Sounds, Crackles, Wheezing, Prolonged Expiration Cardiovascular: Regular Rate, Rhythm GI/Abdominal: Soft, Non-Tender (Female) Exam: Deferred Rectal (Female) Exam: Deferred Back Exam: Full Range of Motion Extremities: Normal Inspection, Normal Range of Motion, No Pedal Edema Neurological: Alert, Oriented, CN II-XII Intact, Normal Cognition, Normal Gait Psychiatric: Anxious Skin Exam: Warm, Dry, Intact Lymphatic: No Adenopathy #1 Interpretation EKG Date: 01/17/21 Time: 18:33 Rhythm: NSR Rate (Beats/Min): 80 [place]: Normal P-Wave: Present QRS: Normal ST-T: Normal QT: Normal Comparison: NA - No Prior EKG Course - Vital Signs Last Recorded V/S: Last Vital Signs Temp 36.2 C 01/17/21 20:10 Pulse 85 01/17/21 20:10 Resp 18 01/17/21 20:10 BP 128/69 01/17/21 20:10 Pulse Ox 99 01/17/21 20:10 - Orders/Labs/Meds Orders: Active Orders 24 hr Category Date Time Status EKG 12 Lead [EK] Routine Ther 01/17/21 17:35 Ordered Labs: Laboratory Tests 01/17/21 01/17/21 01/17/21 Range/Units 17:14 17:27 17:27 WBC 6.1 (3.0-10.3) x10-3/uL RBC 4.54 (3.60-5.20) x10(6)uL Hgb 13.5 (11.4-15.5) g/dL Hct 39.0 (34.2-48.2) % MCV 85.8 (76.7-100.5) fL MCH 29.8 (23.9-33.9) pg MCHC 34.7 (31.9-34.8) g/dL RDW 16.5 (12.3-16.5) % Plt Count 196 (151-488) x10(3)uL MPV 7.2 (7.1-12.4) fL Neut % (Auto) 51.6 (30.8-76.2) % Lymph % (Auto) 39.5 (18.4-52.1) % [place] % (Auto) 6.0 (4.4-15.7) % Eos % (Auto) 2.0 (0.6-8.1) % Baso % (Auto) 0.9 (0.2-1.5) % Neut # (Auto) 3.1 (1.5-6.3) x10-3/uL Lymph # (Auto) 2.4 (1.0-4.4) x10-3/uL [place] # (Auto) 0.4 (0.3-1.0) x10-3/uL Eos # (Auto) 0.1 (0.0-0.8) x10-3/uL Baso # (Auto) 0.1 (0.0-0.1) x10-3/uL D-Dimer, Quantitative (0.0-0.59) mg/LFEU Sodium 134 L (135-145) mmol/L Potassium 4.1 (3.5-5.3) mmol/L Chloride 96 L (100-110) mmol/L Carbon Dioxide 10 L* (21-32) mmol/L BUN 9 (7-18) mg/dL Creatinine 0.7 (0.55-1.02) mg/dL Est Cr Clr Drug Dosing TNP Estimated GFR (MDRD) > 60 (>60) BUN/Creatinine Ratio 12.9 (9-20) Glucose 355 H D (80-116) mg/dL POC Glucose 277 H (74-100) mg/dL Lactic Acid (0.4-2.0) mmol/L Calcium 7.9 L (8.6-10.2) mg/dL Total Bilirubin 0.6 (0.1-1.3) mg/dL AST 24 D (5-25) IU/L ALT 9 L D (12-36) U/L Alkaline Phosphatase 120 H (56-112) IU/L C-Reactive Protein (0.5-0.9) mg/dL Total Protein 6.8 (6.0-8.0) g/dL Albumin 3.2 L (3.5-5.2) g/dL Globulin 3.6 g/dL Albumin/Globulin Ratio 0.9 01/17/21 01/17/21 01/17/21 Range/Units 17:27 17:27 17:27 WBC (3.0-10.3) x10-3/uL RBC (3.60-5.20) x10(6)uL Hgb (11.4-15.5) g/dL Hct (34.2-48.2) % MCV (76.7-100.5) fL MCH (23.9-33.9) pg MCHC (31.9-34.8) g/dL RDW (12.3-16.5) % Plt Count (151-488) x10(3)uL MPV (7.1-12.4) fL Neut % (Auto) (30.8-76.2) % Lymph % (Auto) (18.4-52.1) % Treg[place] % (Auto) (4.4-15.7) % Eos % (Auto) (0.6-8.1) % Baso % (Auto) (0.2-1.5) % Neut # (Auto) (1.5-6.3) x10-3/uL Lymph # (Auto) (1.0-4.4) x10-3/uL [place] # (Auto) (0.3-1.0) x10-3/uL Eos # (Auto) (0.0-0.8) x10-3/uL Baso # (Auto) (0.0-0.1) x10-3/uL D-Dimer, Quantitative 0.25 (0.0-0.59) mg/LFEU Sodium (135-145) mmol/L Potassium (3.5-5.3) mmol/L Chloride (100-110) mmol/L Carbon Dioxide (21-32) mmol/L BUN (7-18) mg/dL Creatinine (0.55-1.02) mg/dL Est Cr Clr Drug Dosing Estimated GFR (MDRD) (>60) BUN/Creatinine Ratio (9-20) Glucose (80-116) mg/dL POC Glucose (74-100) mg/dL Lactic Acid 0.6 (0.4-2.0) mmol/L Calcium (8.6-10.2) mg/dL Total Bilirubin (0.1-1.3) mg/dL AST (5-25) IU/L ALT (12-36) U/L Alkaline Phosphatase (56-112) IU/L C-Reactive Protein 3.1 H* (0.5-0.9) mg/dL Total Protein (6.0-8.0) g/dL Albumin (3.5-5.2) g/dL Globulin g/dL Albumin/Globulin Ratio 01/17/21 Range/Units 20:01 WBC (3.0-10.3) x10-3/uL RBC (3.60-5.20) x10(6)uL Hgb (11.4-15.5) g/dL Hct (34.2-48.2) % MCV (76.7-100.5) fL MCH (23.9-33.9) pg MCHC (31.9-34.8) g/dL RDW (12.3-16.5) % Plt Count (151-488) x10(3)uL MPV (7.1-12.4) fL Neut % (Auto) (30.8-76.2) % Lymph % (Auto) (18.4-52.1) % [place] % (Auto) (4.4-15.7) % Eos % (Auto) (0.6-8.1) % Baso % (Auto) (0.2-1.5) % Neut # (Auto) (1.5-6.3) x10-3/uL Lymph # (Auto) (1.0-4.4) x10-3/uL [place] # (Auto) (0.3-1.0) x10-3/uL Eos # (Auto) (0.0-0.8) x10-3/uL Baso # (Auto) (0.0-0.1) x10-3/uL D-Dimer, Quantitative (0.0-0.59) mg/LFEU Sodium (135-145) mmol/L Potassium (3.5-5.3) mmol/L Chloride (100-110) mmol/L Carbon Dioxide (21-32) mmol/L BUN (7-18) mg/dL Creatinine (0.55-1.02) mg/dL Est Cr Clr Drug Dosing Estimated GFR (MDRD) (>60) BUN/Creatinine Ratio (9-20) Glucose (80-116) mg/dL POC Glucose 268 H (74-100) mg/dL Lactic Acid (0.4-2.0) mmol/L Calcium (8.6-10.2) mg/dL Total Bilirubin (0.1-1.3) mg/dL AST (5-25) IU/L ALT (12-36) U/L Alkaline Phosphatase (56-112) IU/L C-Reactive Protein (0.5-0.9) mg/dL Total Protein (6.0-8.0) g/dL Albumin (3.5-5.2) g/dL Globulin g/dL Albumin/Globulin Ratio Meds: Medications Discontinued Medications Generic Name Dose Route Start Last Admin Trade Name Freq PRN Reason Stop Dose Admin Albuterol 2 gm 01/17/21 19:01 01/17/21 19:20 Albuterol 8 Gm Inhaler INH 01/17/21 19:02 2 puff ONETIME ONE Administration Dexamethasone 8 mg 01/17/21 17:19 01/17/21 17:37 Dexamethasone 4 Mg/Ml 5 Ml Mdv IVPUSH 01/17/21 17:20 8 mg ONETIME ONE Administration Dextrose/Water 50 ml 01/17/21 18:11 50% Dextrose In Water 50 Ml Syringe IVPUSH ASDIRECTED PRN Hypoglycemia Dextrose/Water 50 ml 01/17/21 20:35 50% Dextrose In Water 50 Ml Syringe IVPUSH ASDIRECTED PRN Hypoglycemia Glucagon 1 mg 01/17/21 18:11 Glucagon,Human Recombinant 1 Mg Vial IM ASDIRECTED PRN Hypoglycemia Glucagon 1 mg 01/17/21 20:35 Glucagon,Human Recombinant 1 Mg Vial IM ASDIRECTED PRN Hypoglycemia Guaifenesin 200 mg 01/17/21 17:19 01/17/21 17:37 Guaifenesin 100 Mg/5 Ml Soln 5 Ml Ud Cup PO 01/17/21 17:20 200 mg ONETIME ONE Administration Sodium Chloride 1,000 mls @ 999 mls/hr 01/17/21 17:30 01/17/21 21:00 Normal Saline IV 999 mls/hr ASDIRECTED JERRY Administration Doxycycline Hyclate 100 mg/ 100 mls @ 100 mls/hr 01/17/21 17:20 01/17/21 17:50 Sodium Chloride IV 01/17/21 18:19 100 mls/hr ONETIME ONE Administration Ceftriaxone Sodium 1 gm/ 50 mls @ 200 mls/hr 01/17/21 18:57 01/17/21 19:20 Sodium Chloride IV 01/17/21 19:11 200 mls/hr ONETIME ONE Administration Insulin Human Regular 10 unit 01/17/21 18:11 01/17/21 18:20 Insulin Regular, Human 100 Units/Ml 3 Ml Vial SUBCUT 01/17/21 18:12 10 units ONETIME ONE Administration Insulin Human Regular 10 unit 01/17/21 20:35 01/17/21 20:42 Insulin Regular, Human 100 Units/Ml 3 Ml Vial SUBCUT 01/17/21 20:36 10 units ONETIME ONE Administration - Re-Assessments/Exams Free Text/Narrative Re-Assessment/Exam: 01/17/21 21:34 labs are stable pt has elevated BS on arrival fingerstick was 295 but serum was 331 pt given SC insulin regular ( usually takes long acting tid) , did take her am and afternoon doses of insulin has been given 2.5 liters of fluid and a total of 20 units of SC regular insulin BS is improved 248. But pt had to be given Dexamethasone for asthma and COVID ( discussed with pt that blood sugar will continue to increase or stay elevated ) She will increase Insulin tonight monitor set to wake her if blood sugar drops pt had albuterol via inhaler ( no spacer available, Neb not used due to COVID) pt recommended to still go to [facility] to get Antibody infusion Orders placed for infusion Doxycycline started for possible bacterial infection 01/18/21 04:17 Departure - Departure Time of Disposition: 22:10 Disposition: Home, Self-Care 01 Condition: Fair Clinical Impression: COVID-19 virus infection, Pneumonia due to COVID-19 virus, Exacerbation of asthma, Hyperventilation syndrome - Discharge Information *PRESCRIPTION DRUG MONITORING PROGRAM REVIEWED*: Not Applicable *COPY OF PRESCRIPTION DRUG MONITORING REPORT IN PATIENT [facility]RI[facility]: Not Applicable Prescriptions: guaiFENesin [Mucus Relief ER] 600 mg PO BID #30 tab.er.12h Benzonatate [Tessalon Perle] 200 mg PO TID #90 capsule Doxycycline [Vibra-Tabs] 100 mg PO Q12HR #20 tab Referrals: PCP,None [Primary Care Provider] - Forms: ED Department Discharge Additional Instructions: 1) CONTINUE WITH ALBUTEROL INHALER EVERY 2-4 HRS NEEDED 2) Take Vitamin C , vitamin D, Zinc supplements and drink increased fluids 3) Keep appointment to get COVID antibody infusion in [facility], will aid control symptoms 4) Increase dose of Insulin this night ( you had steroids that will increase your blood sugar level) 5) Call with any concerns Sepsis Event Note (ED) - Focused Exam Vital Signs: Vital Signs Temp Temp Pulse Pulse Resp BP BP 01/17/21 20:10 36.2 C 85 18 128/69 01/17/21 17:27 37.1 C 91 20 152/70 H Pulse Ox 01/17/21 20:10 99 01/17/21 17:27 100 - My Orders Last 24 Hours: My Active Orders 01/17/21 17:35 EKG 12 Lead [EK] Routine - Assessment/Plan Last 24 Hours: My Active Orders 01/17/21 17:35 EKG 12 Lead [EK] Routine
[2021-01-17] MEDS: Sodium Chloride 0.9% 1,000 ML IV SCH ×3 (17:38→21:00)
[2021-01-17] MEDS ORDERED: Insulin Regular, Human 100 Units/ML 3 ML Vial SUBCUT ONE ×2 (18:11→20:35)
[2021-01-17] MEDS ORDERED: 50% Dextrose in Water 50 ML Syringe IVPUSH PRN ×2 (18:11→20:35)
[2021-01-17] MEDS ORDERED: Glucagon,Human Recombinant 1 MG Vial IM PRN ×2 (18:11→20:35)
--- NOTE | 2021-01-17 18:54 | CT ---
INDICATION: Positive for COVID-19 on 01/17/21. Cough. Shortness of breath. CT CHEST WITHOUT CONTRAST: Spiral 3.75 mm axial sections were obtained through the chest with sagittal and coronal reconstructions 01/17/21 - no comparisons. No mediastinal mass was seen. Mediastinal lymphadenopathy is mild and nonspecific. It could be reactive to infection. No mediastinal mass was seen. The heart appeared normal in size. No pericardial effusion was seen. Upper abdomen included showed evidence of cholecystectomy. In the lungs, there is no gross consolidating pneumonia or effusion. However, there are several focal areas of subpleural focal infiltrations, which would be compatible with COVID-19 pneumonia. This should be correlated clinically. CT chest without IV contrast was otherwise unremarkable. IMPRESSION: Focal subpleural areas of infiltrate bilaterally, suspect COVID-19 pneumonia etiology. Report was called to Dr. Carey at 1840 hours, 01/17/21. [facility] [place]
[2021-01-17] MEDS ORDERED: cefTRIAXone 1 GM in Sodium Chloride 0.9% 50 ML IV ONE (18:57)
[2021-01-17] MEDS ORDERED: Albuterol 8 GM Inhaler INH ONE (19:01)
[2021-01-17 20:15] VITALS: BP 128/69; PULSE 85
== END 2021-01-17 22:10 | disposition home or self-care (01) ==
LOC: FB.ED 17:08
DX: U07.1 COVID-19 (principal); J12.82 Pneumonia due to coronavirus disease 2019; J45.901 Unspecified asthma with (acute) exacerbation; R06.4 Hyperventilation; E78.00 Pure hypercholesterolemia, unspecified; I10 Essential (primary) hypertension; E11.9 Type 2 diabetes mellitus without complications; E66.9 Obesity, unspecified; E20.9 Hypoparathyroidism, unspecified; Z79.4 Long term (current) use of insulin; Z79.899 Other long term (current) drug therapy
CPT/HCPCS: 36415; 71250; 80053; 82962; 83605; 85025; 85379; 86140; 93005; 96365; 96367; 96375; 99285; A9270; J0696; J1100; J1815; J3490; J7030

== ENCOUNTER 2021-01-21 13:23 | Emergency (ER) | payer MEDICARE, MEDICAID ==
[2021-01-21 13:55] VITALS: BP 130/85; PULSE 105
[2021-01-21] MEDS ORDERED: Sodium Chloride 0.9% 10 ML Syringe FLUSH PRN (14:09)
--- NOTE | 2021-01-21 14:41 | EDM.PDOC ---
ED HPI GENERAL MEDICAL PROBLEM - General Stated Complaint: dyspnea,N/V,weakness Time Seen by Provider: 01/21/21 14:00 Source of Information: Reports: Patient History Limitations: Reports: No Limitations - History of Present Illness INITIAL COMMENTS - FREE TEXT/NARRATIVE: Patient presented to the ED because of worsening dyspnea, cough, and weakness which started at 1 am today. She also has N/V/D, fever and chills. she has Covid symptoms January 09 and tested positive for Covid a week later. She didn't have the bam infusionbecause she was past the 10 day window period. Generalized Pain Score (Numeric/FACES): 6 - Related Data Allergies Allergy/AdvReac Type Severity Reaction Status Date / Time gabapentin [From Neurontin] Allergy Intermediate Difficulty Verified 08/24/20 22:55 Breathing acetaminophen Allergy Unknown Other Verified 08/24/20 22:55 [From Darvocet-N] propoxyphene Allergy Unknown Other Verified 08/24/20 22:55 [From Darvocet-N] spironolactone Allergy Difficulty Verified 08/24/20 22:55 Swallowing sulfamethoxazole Allergy Diarrhea Verified 08/24/20 22:55 [From Bactrim] trimethoprim [From Bactrim] Allergy Diarrhea Verified 08/24/20 22:55 adhesives Allergy Rash Uncoded 08/24/20 22:55 Home Meds: Home Meds Albuterol [Proventil HFA] 2 puff INH Q4H PRN 08/16/18 [History] Pramipexole [Mirapex] 1 mg PO DAILY 08/16/18 [History] Beclomethasone Dipropionate [Qvar 80 Mcg] 2 puff INH BID 10/22/19 [History] buPROPion [buPROPion XL] 150 mg PO DAILY 10/22/19 [History] FLUoxetine HCl [Fluoxetine HCl] 40 mg PO DAILY 11/06/19 [History] Midodrine 5 mg PO TIDMEALS 11/23/19 [History] Insulin Regular, Human [Humulin R U-500 Kwikpen] 100 unit SQ BEDTIME 12/07/19 [History] Insulin Regular, Human [Humulin R U-500 Kwikpen] 110 unit SQ ACLUNCH 12/07/19 [History] Benzonatate [Tessalon Perle] 200 mg PO TID #90 capsule 01/17/21 [Rx] Doxycycline [Vibra-Tabs] 100 mg PO Q12HR #20 tab 01/17/21 [Rx] Folic Acid 1 mg PO DAILY 01/17/21 [History] Hydroxychloroquine [Plaquenil] 200 mg PO BID 01/17/21 [History] Rosuvastatin [Crestor] 20 mg PO DAILY 01/17/21 [History] gemfibroziL [Gemfibrozil] 600 mg PO TIDMEALS 01/17/21 [History] guaiFENesin [Mucus Relief ER] 600 mg PO BID #30 tab.er.12h 01/17/21 [Rx] Past Medical History HEENT History: Reports: Impaired Vision Cardiovascular History: Reports: High Cholesterol, Hypertension, Syncope, Other (See Below) Other Cardiovascular History: POTS Respiratory History: Reports: Asthma, Sleep Apnea Other Respiratory History: CPAP machine. 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 Musculoskeletal History: Reports: Fracture, Other (See Below) Other Musculoskeletal History: JOINT PAIN Neurological History: Reports: None Psychiatric History: Reports: Depression Other Psychiatric History: self harm in the past Endocrine/Metabolic History: Reports: Diabetes, Type II, Hypoparathyroidism, Obesity/BMI 30+, Other (See Below) Other Endocrine/Metabolic History: parathyroid tumor. HYPERCALCEMIA Hematologic History: Reports: None Immunologic History: Reports: None Oncologic (Cancer) History: Reports: None Dermatologic History: Reports: None - Infectious Disease History Infectious Disease History: Reports: Chicken Pox - Past Surgical History GI Surgical History: Reports: Appendectomy, Cholecystectomy, Colonoscopy Social & Family History - Family History Family Medical History: No Pertinent Family History - Caffeine Use Caffeine Use: Reports: None - Living Situation & Occupation Living situation: Reports: , with Spouse Occupation: Employed [employer] - Review of Systems Review Of Systems: See Below Constitutional: Reports: Fever, Malaise, Weakness HEENT: Reports: No Symptoms Respiratory: Reports: Shortness of Breath Cardiovascular: Reports: No Symptoms Endocrine: Reports: No Symptoms GI/Abdominal: Reports: Diarrhea, Nausea, Vomiting : Reports: No Symptoms Musculoskeletal: Reports: No Symptoms Skin: Reports: No Symptoms Neurological: Reports: No Symptoms Psychiatric: Reports: No Symptoms ED EXAM, GENERAL - Physical Exam Exam: See Below Exam Limited By: No Limitations General Appearance: Alert, No Apparent Distress Eye Exam: Bilateral Eye: PERRL Nose: Normal Inspection, Normal Mucosa, No Blood Throat/Mouth: Normal Inspection, Normal Teeth Head: Atraumatic, Normocephalic Neck: Normal Inspection, Supple, Non-Tender, Full Range of Motion Respiratory/Chest: No Respiratory Distress, Lungs Clear, Normal Breath Sounds, No Accessory Muscle Use, Chest Non-Tender Cardiovascular: Normal Peripheral Pulses, Regular Rate, Rhythm, No Edema, No Gallop, No JVD, No Murmur GI/Abdominal: Normal Bowel Sounds, Soft, Non-Tender, No Organomegaly, No Distention, No Abnormal Bruit, No Mass Back Exam: Normal Inspection, Full Range of Motion Extremities: Normal Inspection, Normal Range of Motion, Non-Tender, No Pedal Edema, Normal Capillary Refill Neurological: Alert, Oriented, CN II-XII Intact, Normal Cognition, Normal Gait, Normal Reflexes, No Motor/Sensory Deficits Psychiatric: Normal Affect Skin Exam: Warm, Dry #1 Interpretation EKG Date: 01/21/21 Time: 13:33 Rhythm: NSR Rate (Beats/Min): 109 [place]: Normal P-Wave: Present QRS: Normal ST-T: Normal QT: Normal Comparison: NA - No Prior EKG (Sinus tach) EKG Interpretation Comments: Sinus Tach Course - Vital Signs Text/Narrative:: Lab result/EKG/CXR was reviewed and discussed with patient Oxygen VNC 3 L/min NS 1 L bolus Zofran 4 mg IV Case discussed with Dr Rose Last Recorded V/S: Last Vital Signs Temp 36.9 C 01/21/21 13:52 Pulse 105 H 01/21/21 13:52 Resp 16 01/21/21 13:52 BP 130/85 01/21/21 13:52 Pulse Ox 97 01/21/21 13:52 - Orders/Labs/Meds Orders: Active Orders 24 hr Category Date Time Status EKG Documentation Completion [RC] ASDIRECTED Care 01/21/21 14:10 Active Chest 1V Frontal [CR] Stat Exams 01/21/21 14:09 Taken CULTURE BLOOD [BC] Urgent Lab 01/21/21 14:35 Received CULTURE BLOOD [BC] Urgent Lab 01/21/21 14:40 Received INFLUENZA A+B AG SCREEN [RM] Stat Lab 01/21/21 14:13 Ordered Sodium Chloride 0.9% [Normal Saline] 1,000 ml Med 01/21/21 16:00 Active IV ASDIRECTED Sodium Chloride 0.9% [Saline Flush] Med 01/21/21 14:09 Active 10 ml FLUSH ASDIRECTED PRN Blood Culture x2 Reflex Set [OM.PC] Urgent Oth 01/21/21 14:13 Ordered Isolation [COMM] Routine Oth 01/21/21 14:13 Ordered Saline Lock Insert [OM.PC] Routine Oth 01/21/21 14:09 Ordered EKG 12 Lead [EK] Routine Ther 01/21/21 14:09 Ordered Medication Orders Sodium Chloride (Normal Saline) 1,000 mls @ 999 mls/hr IV ASDIRECTED JERRY Last Admin: 01/21/21 16:11 Dose: 999 mls/hr Documented by: RASHEEDA Sodium Chloride (Sodium Chloride 0.9% 10 Ml Syringe) 10 ml FLUSH ASDIRECTED PRN PRN Reason: Keep Vein Open Labs: Laboratory Tests 01/21/21 01/21/21 01/21/21 Range/Units 14:35 14:35 14:35 WBC 5.1 (3.0-10.3) x10-3/uL RBC 4.71 (3.60-5.20) x10(6)uL Hgb 13.5 (11.4-15.5) g/dL Hct 39.7 (34.2-48.2) % MCV 84.3 (76.7-100.5) fL MCH 28.7 (23.9-33.9) pg MCHC 34.0 (31.9-34.8) g/dL RDW 16.1 (12.3-16.5) % Plt Count 170 (151-488) x10(3)uL MPV 7.5 (7.1-12.4) fL Neut % (Auto) 44.1 (30.8-76.2) % Lymph % (Auto) 43.3 (18.4-52.1) % [place] % (Auto) 10.5 (4.4-15.7) % Eos % (Auto) 1.0 (0.6-8.1) % Baso % (Auto) 1.1 (0.2-1.5) % Neut # (Auto) 2.3 (1.5-6.3) x10-3/uL Lymph # (Auto) 2.2 (1.0-4.4) x10-3/uL [place] # (Auto) 0.5 (0.3-1.0) x10-3/uL Eos # (Auto) 0.0 (0.0-0.8) x10-3/uL Baso # (Auto) 0.1 (0.0-0.1) x10-3/uL D-Dimer, Quantitative 0.30 (0.0-0.59) mg/LFEU Sodium 137 (135-145) mmol/L Potassium 3.8 (3.5-5.3) mmol/L Chloride 98 L (100-110) mmol/L Carbon Dioxide 21 (21-32) mmol/L BUN 8 (7-18) mg/dL Creatinine 0.9 (0.55-1.02) mg/dL Est Cr Clr Drug Dosing TNP Estimated GFR (MDRD) > 60 (>60) BUN/Creatinine Ratio 8.9 L (9-20) Glucose 217 H D (80-116) mg/dL Lactic Acid (0.4-2.0) mmol/L Calcium 8.6 (8.6-10.2) mg/dL Total Bilirubin 0.5 (0.1-1.3) mg/dL AST 9 D (5-25) IU/L ALT 36 D (12-36) U/L Alkaline Phosphatase 111 (56-112) IU/L Troponin I (4.0-60.3) pg/mL NT-Pro-B Natriuret Pep (<=125) pg/mL Total Protein 6.9 (6.0-8.0) g/dL Albumin 3.2 L (3.5-5.2) g/dL Globulin 3.7 g/dL Albumin/Globulin Ratio 0.9 01/21/21 01/21/21 Range/Units 14:35 14:35 WBC (3.0-10.3) x10-3/uL RBC (3.60-5.20) x10(6)uL Hgb (11.4-15.5) g/dL Hct (34.2-48.2) % MCV (76.7-100.5) fL MCH (23.9-33.9) pg MCHC (31.9-34.8) g/dL RDW (12.3-16.5) % Plt Count (151-488) x10(3)uL MPV (7.1-12.4) fL Neut % (Auto) (30.8-76.2) % Lymph % (Auto) (18.4-52.1) % [place] % (Auto) (4.4-15.7) % Eos % (Auto) (0.6-8.1) % Baso % (Auto) (0.2-1.5) % Neut # (Auto) (1.5-6.3) x10-3/uL Lymph # (Auto) (1.0-4.4) x10-3/uL [place] # (Auto) (0.3-1.0) x10-3/uL Eos # (Auto) (0.0-0.8) x10-3/uL Baso # (Auto) (0.0-0.1) x10-3/uL D-Dimer, Quantitative (0.0-0.59) mg/LFEU Sodium (135-145) mmol/L Potassium (3.5-5.3) mmol/L Chloride (100-110) mmol/L Carbon Dioxide (21-32) mmol/L BUN (7-18) mg/dL Creatinine (0.55-1.02) mg/dL Est Cr Clr Drug Dosing Estimated GFR (MDRD) (>60) BUN/Creatinine Ratio (9-20) Glucose (80-116) mg/dL Lactic Acid 0.5 (0.4-2.0) mmol/L Calcium (8.6-10.2) mg/dL Total Bilirubin (0.1-1.3) mg/dL AST (5-25) IU/L ALT (12-36) U/L Alkaline Phosphatase (56-112) IU/L Troponin I < 4.0 L (4.0-60.3) pg/mL NT-Pro-B Natriuret Pep 19 (<=125) pg/mL Total Protein (6.0-8.0) g/dL Albumin (3.5-5.2) g/dL Globulin g/dL Albumin/Globulin Ratio Meds: Medications Generic Name Dose Route Start Last Admin Trade Name Asad PRN Reason Stop Dose Admin Sodium Chloride 1,000 mls @ 999 mls/hr 01/21/21 16:00 01/21/21 16:11 Normal Saline IV 999 mls/hr ASDIRECTED JERRY Administration Sodium Chloride 10 ml 01/21/21 14:09 Sodium Chloride 0.9% 10 Ml Syringe FLUSH ASDIRECTED PRN Keep Vein Open Discontinued Medications Generic Name Dose Route Start Last Admin Trade Name Asad PRN Reason Stop Dose Admin Ondansetron HCl 4 mg 01/21/21 15:56 01/21/21 16:11 Ondansetron 4 Mg/2 Ml Sdv IVPUSH 01/21/21 15:57 4 mg NOW STA Administration Departure - Departure Time of Disposition: 16:20 Disposition: Home, Self-Care 01 Condition: Good Clinical Impression: COVID-19, Nausea & vomiting - Discharge Information Referrals: PCP,None [Primary Care Provider] - Sepsis Event Note (ED) - Evaluation Sepsis Screening Result: Possible Sepsis Risk - Focused Exam Vital Signs: Vital Signs Temp Pulse Resp BP Pulse Ox 01/21/21 13:52 36.9 C 105 H 16 130/85 97 - My Orders Last 24 Hours: My Active Orders 01/21/21 14:09 Chest 1V Frontal [CR] Stat Sodium Chloride 0.9% [Saline Flush] 10 ml FLUSH ASDIRECTED PRN Saline Lock Insert [OM.PC] Routine EKG 12 Lead [EK] Routine 01/21/21 14:10 EKG Documentation Completion [RC] ASDIRECTED 01/21/21 14:13 INFLUENZA A+B AG SCREEN [RM] Stat Blood Culture x2 Reflex Set [OM.PC] Urgent Isolation [COMM] Routine 01/21/21 14:35 CULTURE BLOOD [BC] Urgent 01/21/21 14:40 CULTURE BLOOD [BC] Urgent 01/21/21 16:00 Sodium Chloride 0.9% [Normal Saline] 1,000 ml IV ASDIRECTED - Assessment/Plan Last 24 Hours: My Active Orders 01/21/21 14:09 Chest 1V Frontal [CR] Stat Sodium Chloride 0.9% [Saline Flush] 10 ml FLUSH ASDIRECTED PRN Saline Lock Insert [OM.PC] Routine EKG 12 Lead [EK] Routine 01/21/21 14:10 EKG Documentation Completion [RC] ASDIRECTED 01/21/21 14:13 INFLUENZA A+B AG SCREEN [RM] Stat Blood Culture x2 Reflex Set [OM.PC] Urgent Isolation [COMM] Routine 01/21/21 14:35 CULTURE BLOOD [BC] Urgent 01/21/21 14:40 CULTURE BLOOD [BC] Urgent 01/21/21 16:00 Sodium Chloride 0.9% [Normal Saline] 1,000 ml IV ASDIRECTED
[2021-01-21] MEDS ORDERED: Ondansetron 4 MG/2 ML SDV IVPUSH STA (15:56)
[2021-01-21] MEDS ORDERED: Sodium Chloride 0.9% 1,000 ML IV SCH (16:00)
--- NOTE | 2021-01-21 16:25 | CR ---
CHEST ONE VIEW [id number] INDICATION: Dyspnea, diagnosed with covid 01/17/2021. A portable AP upright view of the chest was obtained 01/21/2021 and compared with 10/22/2019, 01/19/2016 chest x-rays, and a CT of the chest from 01/17/2021. The heart did not appear grossly enlarged. The mediastinum is somewhat widened likely on the basis of body habitus and AP positioning. There are patchy areas of infiltration in both lower lung coe which appear to be significantly increased compared with a recent CT of the chest. No pleural effusion was seen. Overlying EKG leads are noted. IMPRESSION: Bilateral lower lung field infiltration appears to be significantly increased compared with recent CT of the chest from 01/17/2021. Report was called to Dr. Barrera at 1455 hours 01/21/2021. LIZ
== END 2021-01-21 17:30 | disposition home or self-care (01) ==
LOC: FB.ED 13:23
DX: U07.1 COVID-19 (principal); R00.0 Tachycardia, unspecified; I10 Essential (primary) hypertension; E78.00 Pure hypercholesterolemia, unspecified; J45.909 Unspecified asthma, uncomplicated; E11.9 Type 2 diabetes mellitus without complications; E20.9 Hypoparathyroidism, unspecified; E66.9 Obesity, unspecified; Z88.6 Allergy status to analgesic agent; Z88.8 Allergy status to other drugs, medicaments and biological substances; Z88.2 Allergy status to sulfonamides; Z88.1 Allergy status to other antibiotic agents; Z91.048 Other nonmedicinal substance allergy status; Z79.899 Other long term (current) drug therapy; Z79.4 Long term (current) use of insulin
CPT/HCPCS: 36415; 71045; 80053; 83605; 83880; 84484; 85025; 85379; 87040; 87804; 93005; 96374; 99285; J2405; J7030

== ENCOUNTER 2021-04-14 17:09 | Emergency (ER) | payer MEDICARE, MEDICAID ==
[2021-04-14 17:18] VITALS: BP 152/98; PULSE 104
--- NOTE | 2021-04-14 17:33 | EDM.PDOC ---
ED HPI GENERAL MEDICAL PROBLEM - General Chief Complaint: Upper Extremity Injury/Pain Stated Complaint: RIGHT HAND SHUT IN HOUSE DOOR Time Seen by Provider: 04/14/21 17:31 Source of Information: Reports: Patient History Limitations: Reports: No Limitations - History of Present Illness INITIAL COMMENTS - FREE TEXT/NARRATIVE: Right hand slammed by door at home,accidentally. Complains of pain with movement. Hand Pain Score (Numeric/FACES): 7 - Related Data Allergies Allergy/AdvReac Type Severity Reaction Status Date / Time gabapentin [From Neurontin] Allergy Intermediate Difficulty Verified 01/21/21 17:23 Breathing acetaminophen Allergy Unknown Other Verified 01/21/21 17:23 [From Darvocet-N] propoxyphene Allergy Unknown Other Verified 01/21/21 17:23 [From Darvocet-N] spironolactone Allergy Difficulty Verified 01/21/21 17:23 Swallowing sulfamethoxazole Allergy Diarrhea Verified 01/21/21 17:23 [From Bactrim] trimethoprim [From Bactrim] Allergy Diarrhea Verified 01/21/21 17:23 adhesives Allergy Rash Uncoded 01/21/21 17:23 Home Meds: Home Meds Albuterol [Proventil HFA] 2 puff INH Q4H PRN 08/16/18 [History] Pramipexole [Mirapex] 1 mg PO DAILY 08/16/18 [History] buPROPion [buPROPion XL] 150 mg PO DAILY 10/22/19 [History] FLUoxetine HCl [Fluoxetine HCl] 40 mg PO DAILY 11/06/19 [History] Midodrine 5 mg PO TIDMEALS 11/23/19 [History] Insulin Regular, Human [Humulin R U-500 Kwikpen] 100 unit SQ BEDTIME 12/07/19 [History] Insulin Regular, Human [Humulin R U-500 Kwikpen] 110 unit SQ ACLUNCH 12/07/19 [History] Benzonatate [Tessalon Perle] 200 mg PO TID #90 capsule 01/17/21 [Rx] Doxycycline [Vibra-Tabs] 100 mg PO Q12HR #20 tab 01/17/21 [Rx] Folic Acid 1 mg PO DAILY 01/17/21 [History] Hydroxychloroquine [Plaquenil] 200 mg PO BID 01/17/21 [History] Rosuvastatin [Crestor] 20 mg PO DAILY 01/17/21 [History] Past Medical History HEENT History: Reports: Impaired Vision Cardiovascular History: Reports: High Cholesterol, Hypertension, Syncope, Other (See Below) Other Cardiovascular History: POTS Respiratory History: Reports: Asthma, Sleep Apnea Other Respiratory History: CPAP machine. 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 Musculoskeletal History: Reports: Fracture, Other (See Below) Other Musculoskeletal History: JOINT PAIN Neurological History: Reports: None Psychiatric History: Reports: Depression Other Psychiatric History: self harm in the past Endocrine/Metabolic History: Reports: Diabetes, Type II, Hypoparathyroidism, Obesity/BMI 30+, Other (See Below) Other Endocrine/Metabolic History: parathyroid tumor. HYPERCALCEMIA Hematologic History: Reports: None Immunologic History: Reports: None Oncologic (Cancer) History: Reports: None Dermatologic History: Reports: None - Infectious Disease History Infectious Disease History: Reports: Chicken Pox, Novel Coronavirus - Past Surgical History Head Surgeries/Procedures: Reports: None HEENT Surgical History: Reports: Oral Surgery, Tonsillectomy Cardiovascular Surgical History: Reports: None Respiratory Surgical History: Reports: None GI Surgical History: Reports: Appendectomy, Cholecystectomy, Colonoscopy Female Surgical History: Reports: Cystectomy, Salpingo-Oophorectomy, Other (See Below) Other Female Surgeries/Procedures: LEFT OVARY REMOVED; HX LAP DIAG, INCLUDING HYSTEROSCOPY, ENDOMETRIAL POLYPECTOMY ET CURRETTAGE, FULGURATION OF ENDOMETRIOSIS. CYSTOURETHROSCOPY /W RMVL URETERAL STONES. 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 brachial surgery left Oncologic Surgical History: Reports: None Dermatological Surgical History: Reports: None Social & Family History - Family History Family Medical History: No Pertinent Family History - Tobacco Use Tobacco Use Status *Q: Never Tobacco User Second Hand Smoke Exposure: No - Caffeine Use Caffeine Use: Reports: Soda - Recreational Drug Use Recreational Drug Use: No - Living Situation & Occupation Living situation: Reports: , with Spouse Occupation: Employed Review of Systems - Review of Systems Review Of Systems: Comprehensive ROS is negative, except as noted in HPI. ED EXAM, GENERAL - Physical Exam Exam: See Below Exam Limited By: No Limitations Extremities: Normal Inspection, Normal Range of Motion, Limited Range of Motion, Other (Tender hand,around thumb) Neurological: Alert Course - Vital Signs Last Recorded V/S: Last Vital Signs Temp 96.4 F L 04/14/21 17:15 Pulse 104 H 04/14/21 17:15 Resp 18 04/14/21 17:15 BP 152/98 H 04/14/21 17:15 Pulse Ox 98 04/14/21 17:15 - Orders/Labs/Meds Orders: Active Orders 24 hr Category Date Time Status Hand Comp Min 3V Rt [CR] Stat Exams 04/14/21 17:23 Taken Departure - Departure Time of Disposition: 17:44 Disposition: Home, Self-Care 01 Condition: Good Clinical Impression: Hand sprain Qualifiers: Encounter type: initial encounter Laterality: right Qualified Code(s): S63.91XA - Sprain of unspecified part of right wrist and hand, initial encounter - Discharge Information Referrals: Adalid Herrera DO [Primary Care Provider] - Forms: ED Department Discharge Sepsis Event Note (ED) - Evaluation Sepsis Screening Result: No Definite Risk - Focused Exam Vital Signs: Vital Signs Temp Pulse Resp BP Pulse Ox 04/14/21 17:15 96.4 F L 104 H 18 152/98 H 98 - Problem List & Annotations (1) Hand sprain SNOMED Code(s): 87842643 Code(s): S63.90XA - SPRAIN OF UNSP PART OF UNSP WRIST AND HAND, INIT ENCNTR Status: Acute Current Visit: No Qualifiers: Encounter type: initial encounter Laterality: right Qualified Code(s): S63.91XA - Sprain of unspecified part of right wrist and hand, initial encounter - Problem List Review Problem List Initiated/Reviewed/Updated: Yes - My Orders Last 24 Hours: My Active Orders 04/14/21 17:23 Hand Comp Min 3V Rt [CR] Stat - Assessment/Plan Last 24 Hours: My Active Orders 04/14/21 17:23 Hand Comp Min 3V Rt [CR] Stat Plan: RICE.
--- NOTE | 2021-04-15 16:45 | CR ---
INDICATION: Pain after slamming hand in door with pain across MCP joints. RIGHT HAND [id number]: Three-views of the right hand were obtained 04/14/21 - no comparison. There appears to be soft tissue swelling overlying the metacarpals dorsally and at the proximal phalanges of the 2nd through 5th fingers. However, a definite acute fracture, dislocation, or other significant bone or joint abnormality, was not identified. If symptoms persist - if occult fracture site is suspected clinically, re- examination in 10-14 days may be helpful. MTDD
== END 2021-04-14 17:39 | disposition home or self-care (01) ==
LOC: FB.ED 17:09
DX: S63.91XA Sprain of unspecified part of right wrist and hand, initial encounter (principal); E78.00 Pure hypercholesterolemia, unspecified; I10 Essential (primary) hypertension; E11.9 Type 2 diabetes mellitus without complications; E03.9 Hypothyroidism, unspecified; E66.9 Obesity, unspecified; Z79.4 Long term (current) use of insulin; Z79.899 Other long term (current) drug therapy; Z68.44 Body mass index [BMI] 60.0-69.9, adult; Z88.1 Allergy status to other antibiotic agents; Z88.6 Allergy status to analgesic agent; Z91.048 Other nonmedicinal substance allergy status; Z88.5 Allergy status to narcotic agent; W22.8XXA Striking against or struck by other objects, initial encounter
CPT/HCPCS: 73130-RT; 99283-25

== ENCOUNTER 2021-04-25 16:33 | Emergency (ER) | payer MEDICARE, MEDICAID ==
[2021-04-25] MEDS ORDERED: Acetaminophen 500 MG Tab PO STA (17:52)
[2021-04-25] MEDS ORDERED: LORazepam 2 MG/ML SDV IM STA (17:52)
[2021-04-25] MEDS ORDERED: Ibuprofen 800 MG Tab PO ONE (17:52)
[2021-04-25] MEDS ORDERED: Ondansetron 4 MG Tab.DIS PO STA (17:52)
--- NOTE | 2021-04-25 18:12 | EDM.PDOC ---
ED HPI GENERAL MEDICAL PROBLEM - General Stated Complaint: CHEST PAIN/SOB Time Seen by Provider: 04/25/21 16:40 Source of Information: Reports: Patient History Limitations: Reports: No Limitations - History of Present Illness INITIAL COMMENTS - FREE TEXT/NARRATIVE: Patient presented to the ED because chest pain, dyspnea, nausea, chills, body malaise after having her first pfizer covid vaccine. She was hyperventilating when she arrived in the ED and c/o dyspnea although her oxygen saturation is 98% on RA. - Related Data Allergies Allergy/AdvReac Type Severity Reaction Status Date / Time gabapentin [From Neurontin] Allergy Intermediate Difficulty Verified 01/21/21 17:23 Breathing acetaminophen Allergy Unknown Other Verified 01/21/21 17:23 [From Darvocet-N] propoxyphene Allergy Unknown Other Verified 01/21/21 17:23 [From Darvocet-N] spironolactone Allergy Difficulty Verified 01/21/21 17:23 Swallowing sulfamethoxazole Allergy Diarrhea Verified 01/21/21 17:23 [From Bactrim] trimethoprim [From Bactrim] Allergy Diarrhea Verified 01/21/21 17:23 adhesives Allergy Rash Uncoded 01/21/21 17:23 Home Meds: Home Meds Albuterol [Proventil HFA] 2 puff INH Q4H PRN 08/16/18 [History] Pramipexole [Mirapex] 1 mg PO DAILY 08/16/18 [History] buPROPion [buPROPion XL] 150 mg PO DAILY 10/22/19 [History] FLUoxetine HCl [Fluoxetine HCl] 40 mg PO DAILY 11/06/19 [History] Midodrine 5 mg PO TIDMEALS 11/23/19 [History] Insulin Regular, Human [Humulin R U-500 Kwikpen] 100 unit SQ BEDTIME 12/07/19 [History] Insulin Regular, Human [Humulin R U-500 Kwikpen] 110 unit SQ ACLUNCH 12/07/19 [History] Benzonatate [Tessalon Perle] 200 mg PO TID #90 capsule 01/17/21 [Rx] Doxycycline [Vibra-Tabs] 100 mg PO Q12HR #20 tab 01/17/21 [Rx] Folic Acid 1 mg PO DAILY 01/17/21 [History] Hydroxychloroquine [Plaquenil] 200 mg PO BID 01/17/21 [History] Rosuvastatin [Crestor] 20 mg PO DAILY 01/17/21 [History] Ibuprofen [Ibu] 800 mg PO Q8H PRN #30 tablet 04/25/21 [Rx] Ondansetron [Zofran ODT] 4 mg PO Q4H PRN #7 tab.dis 04/25/21 [Rx] diazePAM [Valium] 10 mg PO Q8H PRN #10 tablet 04/25/21 [Rx] Past Medical History HEENT History: Reports: Impaired Vision Cardiovascular History: Reports: High Cholesterol, Hypertension, Syncope, Other (See Below) Other Cardiovascular History: POTS Respiratory History: Reports: Asthma, Sleep Apnea Other Respiratory History: CPAP machine. 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 Musculoskeletal History: Reports: Fracture, Other (See Below) Other Musculoskeletal History: JOINT PAIN Neurological History: Reports: None Psychiatric History: Reports: Depression Other Psychiatric History: self harm in the past Endocrine/Metabolic History: Reports: Diabetes, Type II, Hypoparathyroidism, Obesity/BMI 30+, Other (See Below) Other Endocrine/Metabolic History: parathyroid tumor. HYPERCALCEMIA Hematologic History: Reports: None Immunologic History: Reports: None Oncologic (Cancer) History: Reports: None Dermatologic History: Reports: None - Infectious Disease History Infectious Disease History: Reports: Chicken Pox, Novel Coronavirus - Past Surgical History Head Surgeries/Procedures: Reports: None HEENT Surgical History: Reports: Oral Surgery, Tonsillectomy Cardiovascular Surgical History: Reports: None Respiratory Surgical History: Reports: None GI Surgical History: Reports: Appendectomy, Cholecystectomy, Colonoscopy Female Surgical History: Reports: Cystectomy, Salpingo-Oophorectomy, Other (See Below) Other Female Surgeries/Procedures: LEFT OVARY REMOVED; HX LAP DIAG, INCLUDING HYSTEROSCOPY, ENDOMETRIAL POLYPECTOMY ET CURRETTAGE, FULGURATION OF ENDOMETRIOSIS. CYSTOURETHROSCOPY /W RMVL URETERAL STONES. 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 brachial surgery left Oncologic Surgical History: Reports: None Dermatological Surgical History: Reports: None Social & Family History - Family History Family Medical History: No Pertinent Family History - Caffeine Use Caffeine Use: Reports: Soda - Living Situation & Occupation Living situation: Reports: , with Spouse Occupation: Employed ED ROS GENERAL - Review of Systems Review Of Systems: See Below Constitutional: Reports: No Symptoms HEENT: Reports: No Symptoms Respiratory: Reports: No Symptoms Cardiovascular: Reports: No Symptoms Endocrine: Reports: No Symptoms GI/Abdominal: Reports: No Symptoms : Reports: No Symptoms Musculoskeletal: Reports: No Symptoms Skin: Reports: No Symptoms Neurological: Reports: No Symptoms ED EXAM, GENERAL - Physical Exam Exam: See Below Exam Limited By: No Limitations General Appearance: Alert, No Apparent Distress Ears: Normal External Exam, Normal Canal Nose: Normal Inspection, Normal Mucosa, No Blood Throat/Mouth: Normal Inspection, Normal Lips, Normal Teeth Head: Atraumatic, Normocephalic Neck: Normal Inspection, Supple, Non-Tender, Full Range of Motion Respiratory/Chest: No Respiratory Distress, Lungs Clear, Normal Breath Sounds, No Accessory Muscle Use, Chest Non-Tender Cardiovascular: Normal Peripheral Pulses, Regular Rate, Rhythm, No Edema, No Gallop, No JVD, No Murmur, No Rub GI/Abdominal: Normal Bowel Sounds, Soft, Non-Tender, No Organomegaly, No Distention, No Abnormal Bruit Back Exam: Normal Inspection, Full Range of Motion Extremities: Normal Inspection, Normal Range of Motion, Non-Tender #1 Interpretation EKG Date: 04/25/21 Time: 16:45 Rhythm: Other (Sinus tach) Rate (Beats/Min): 103 Williams: Normal P-Wave: Present QRS: Normal ST-T: Normal QT: Normal PA/PQ Interval: 103 Comparison: No Change EKG Interpretation Comments: Sinus Tach Course - Vital Signs Text/Narrative:: Lab/EKG/CXR result was reviewed and discussed with patient Ativan 1 mg IM x1 Ibuprofen 800 mg PO x1 Tylenol 41856 mg PO x1 Zofran ODT 4 mg PO x1 - Orders/Labs/Meds Orders: Active Orders 24 hr Category Date Time Status EKG Documentation Completion [RC] ASDIRECTED Care 04/25/21 16:54 Active Chest 1V Frontal [CR] Stat Exams 04/25/21 16:54 Taken EKG 12 Lead [EK] Routine Ther 04/25/21 16:54 Ordered Labs: Laboratory Tests 04/25/21 04/25/21 Range/Units 17:00 17:00 WBC 5.7 (3.0-10.3) x10-3/uL RBC 4.46 (3.60-5.20) x10(6)uL Hgb 12.5 (11.4-15.5) g/dL Hct 37.7 (34.2-48.2) % MCV 84.5 (76.7-100.5) fL MCH 28.0 (23.9-33.9) pg MCHC 33.2 (31.9-34.8) g/dL RDW 16.2 (12.3-16.5) % Plt Count 163 (151-488) x10(3)uL MPV 7.2 (7.1-12.4) fL Neut % (Auto) 86.9 H (30.8-76.2) % Lymph % (Auto) 6.7 L (18.4-52.1) % [place] % (Auto) 5.1 (4.4-15.7) % Eos % (Auto) 0.5 L (0.6-8.1) % Baso % (Auto) 0.8 (0.2-1.5) % Neut # (Auto) 4.9 (1.5-6.3) x10-3/uL Lymph # (Auto) 0.4 L (1.0-4.4) x10-3/uL [place] # (Auto) 0.3 (0.3-1.0) x10-3/uL Eos # (Auto) 0.0 (0.0-0.8) x10-3/uL Baso # (Auto) 0.0 (0.0-0.1) x10-3/uL Sodium 137 (135-145) mmol/L Potassium 4.1 (3.5-5.3) mmol/L Chloride 98 L (100-110) mmol/L Carbon Dioxide 26 (21-32) mmol/L BUN 8 (7-18) mg/dL Creatinine 0.9 (0.55-1.02) mg/dL Est Cr Clr Drug Dosing TNP Estimated GFR (MDRD) > 60 (>60) BUN/Creatinine Ratio 8.9 L (9-20) Glucose 212 H (80-116) mg/dL Calcium 9.4 (8.6-10.2) mg/dL Meds: Medications Discontinued Medications Generic Name Dose Route Start Last Admin Trade Name Freq PRN Reason Stop Dose Admin Acetaminophen 1,000 mg 04/25/21 17:52 Acetaminophen 500 Mg Tab PO 04/25/21 17:53 NOW STA Ibuprofen 800 mg 04/25/21 17:52 Ibuprofen 800 Mg Tab PO 04/25/21 17:53 ONETIME ONE Lorazepam 1 mg 04/25/21 17:52 Lorazepam 2 Mg/Ml Sdv IM 04/25/21 17:53 NOW STA Ondansetron HCl 4 mg 04/25/21 17:52 Ondansetron 4 Mg Tab.Dis PO 04/25/21 17:53 NOW STA Departure - Departure Time of Disposition: 19:00 Disposition: Home, Self-Care 01 Condition: Good Clinical Impression: Anxiety attack, Vaccine reaction - Discharge Information Prescriptions: Ibuprofen [Ibu] 800 mg PO Q8H PRN #30 tablet PRN Reason: Pain diazePAM [Valium] 10 mg PO Q8H PRN #10 tablet PRN Reason: Anxiety Ondansetron [Zofran ODT] 4 mg PO Q4H PRN #7 tab.dis PRN Reason: Nausea Instructions: COVID-19 Vaccine Information, Panic Attack, [id number] Referrals: Adalid Herrera, [Primary Care Provider] - Additional Instructions: Please read discharge instructions on anxiety/panic attack and vaccine reaction Drink 2 liters of water daily Take ibuprofen 800 mg with tylenol 1000 mg every 8 hours as needed for body ache Valium 10 mg 1 tablet every 8 hours as needed for acute anxiety attack Follow up as needed - My Orders Last 24 Hours: My Active Orders 04/25/21 16:54 EKG Documentation Completion [RC] ASDIRECTED Chest 1V Frontal [CR] Stat EKG 12 Lead [EK] Routine - Assessment/Plan Last 24 Hours: My Active Orders 04/25/21 16:54 EKG Documentation Completion [RC] ASDIRECTED Chest 1V Frontal [CR] Stat EKG 12 Lead [EK] Routine
[2021-04-25 19:43] VITALS: BP 140/79; PULSE 109
== END 2021-04-25 18:45 | disposition home or self-care (01) ==
LOC: FB.ED 16:33
DX: F41.9 Anxiety disorder, unspecified (principal); T50.B95A Adverse effect of other viral vaccines, initial encounter; E78.00 Pure hypercholesterolemia, unspecified; I10 Essential (primary) hypertension; E11.9 Type 2 diabetes mellitus without complications; E03.9 Hypothyroidism, unspecified; E66.9 Obesity, unspecified; Z68.43 Body mass index [BMI] 50.0-59.9, adult; Z79.4 Long term (current) use of insulin; Z88.5 Allergy status to narcotic agent; Z88.6 Allergy status to analgesic agent; Z88.1 Allergy status to other antibiotic agents; Z91.048 Other nonmedicinal substance allergy status
CPT/HCPCS: 36415; 71045; 80048; 85025; 93005; 96372; 99285; A9270; J2060; 93010; 99284

== ENCOUNTER 2021-08-01 01:28 | Emergency (ER) | payer MEDICARE, MEDICAID ==
[2021-08-01] MEDS ORDERED: cefTRIAXone 1 GM Vial IM ONE (01:57)
[2021-08-01] MEDS ORDERED: Acetaminophen/HYDROcodone 325-5 MG Tab PO ONE (01:58)
[2021-08-01] MEDS ORDERED: Ketorolac 30 MG/ML SDV IM ONE (01:58)
[2021-08-01 02:01] VITALS: BP 138/74; PULSE 105
--- NOTE | 2021-08-01 02:05 | EDM.PDOC ---
ED HPI GENERAL MEDICAL PROBLEM - General Chief Complaint: Skin Complaint Stated Complaint: cyst on r butt cheek Time Seen by Provider: 08/01/21 01:40 Source of Information: Reports: Patient History Limitations: Reports: No Limitations - History of Present Illness INITIAL COMMENTS - FREE TEXT/NARRATIVE: States she noted swelling with pain in the right gluteal region yesterday , went into see her PCP. had labs done and noted to have an elevated WBC, was started on Augmentin and Doxycycline. has since noted the cyst had gotten bigger and it is more painful, warm to touch pt denies having a fever Onset: Today Onset Date: 07/30/21 Duration: Chronic, Getting Worse Location: Reports: Other (right gluteal region in the perineum) Quality: Reports: Ache, Burning, Dull, Pressure, Same as Previous Episode, Stabbing Severity: Moderate Improves with: Reports: Heat Therapy Worsens with: Reports: Medication Context: Reports: Other (sudden onset , noted in the said area ) Associated Symptoms: Denies: Fever/Chills, Headaches Treatments [facility]: Reports: Other Medication(s) - Related Data Allergies Allergy/AdvReac Type Severity Reaction Status Date / Time gabapentin [From Neurontin] Allergy Intermediate Difficulty Verified 08/01/21 01:57 Breathing acetaminophen Allergy Unknown Other Verified 08/01/21 01:57 [From Darvocet-N] propoxyphene Allergy Unknown Other Verified 08/01/21 01:57 [From Darvocet-N] spironolactone Allergy Difficulty Verified 08/01/21 01:57 Swallowing sulfamethoxazole Allergy Diarrhea Verified 08/01/21 01:57 [From Bactrim] trimethoprim [From Bactrim] Allergy Diarrhea Verified 08/01/21 01:57 adhesives Allergy Rash Uncoded 08/01/21 01:57 Home Meds: Home Meds Albuterol [Proventil HFA] 2 puff INH Q4H PRN 08/16/18 [History] Pramipexole [Mirapex] 1 mg PO DAILY 08/16/18 [History] buPROPion [buPROPion XL] 150 mg PO DAILY 10/22/19 [History] FLUoxetine HCl [Fluoxetine HCl] 40 mg PO DAILY 11/06/19 [History] Midodrine 5 mg PO TIDMEALS 11/23/19 [History] Insulin Regular, Human [Humulin R U-500 Kwikpen] 100 unit SQ BEDTIME 12/07/19 [History] Insulin Regular, Human [Humulin R U-500 Kwikpen] 110 unit SQ ACLUNCH 12/07/19 [History] Benzonatate [Tessalon Perle] 200 mg PO TID #90 capsule 01/17/21 [Rx] Doxycycline [Vibra-Tabs] 100 mg PO Q12HR #20 tab 01/17/21 [Rx] Folic Acid 1 mg PO DAILY 01/17/21 [History] Hydroxychloroquine [Plaquenil] 200 mg PO BID 01/17/21 [History] Rosuvastatin [Crestor] 20 mg PO DAILY 01/17/21 [History] Ibuprofen [Ibu] 800 mg PO Q8H PRN #30 tablet 04/25/21 [Rx] Ondansetron [Zofran ODT] 4 mg PO Q4H PRN #7 tab.dis 04/25/21 [Rx] diazePAM [Valium] 10 mg PO Q8H PRN #10 tablet 04/25/21 [Rx] oxyCODONE HCl/Acetaminophen [Endocet 5-325 Tablet] 1 each PO Q8HR #10 tablet 08/01/21 [Rx] Past Medical History HEENT History: Reports: Impaired Vision Cardiovascular History: Reports: High Cholesterol, Hypertension, Syncope, Other (See Below) Other Cardiovascular History: POTS Respiratory History: Reports: Asthma, Sleep Apnea Other Respiratory History: CPAP machine. 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 Musculoskeletal History: Reports: Fracture, Other (See Below) Other Musculoskeletal History: JOINT PAIN Neurological History: Reports: None Psychiatric History: Reports: Depression Other Psychiatric History: self harm in the past Endocrine/Metabolic History: Reports: Diabetes, Type II, Hypoparathyroidism, Obesity/BMI 30+, Other (See Below) Other Endocrine/Metabolic History: parathyroid tumor. HYPERCALCEMIA Hematologic History: Reports: None Immunologic History: Reports: None Oncologic (Cancer) History: Reports: None Dermatologic History: Reports: None - Infectious Disease History Infectious Disease History: Reports: Chicken Pox, Novel Coronavirus - Past Surgical History Head Surgeries/Procedures: Reports: None HEENT Surgical History: Reports: Oral Surgery, Tonsillectomy Cardiovascular Surgical History: Reports: None Respiratory Surgical History: Reports: None GI Surgical History: Reports: Appendectomy, Cholecystectomy, Colonoscopy Female Surgical History: Reports: Cystectomy, Salpingo-Oophorectomy, Other (See Below) Other Female Surgeries/Procedures: LEFT OVARY REMOVED; HX LAP DIAG, INCLUDING HYSTEROSCOPY, ENDOMETRIAL POLYPECTOMY ET CURRETTAGE, FULGURATION OF ENDOMETRIOSIS. CYSTOURETHROSCOPY /W RMVL URETERAL STONES. 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 brachial surgery left Oncologic Surgical History: Reports: None Dermatological Surgical History: Reports: None Social & Family History - Family History Family Medical History: No Pertinent Family History - Caffeine Use Caffeine Use: Reports: Soda - Living Situation & Occupation Living situation: Reports: , with Spouse Occupation: Employed ED ROS GENERAL - Review of Systems Review Of Systems: Comprehensive ROS is negative, except as noted in HPI. Constitutional: Reports: Diaphoresis. Denies: Fever, Chills, Malaise, Weakness, Night Sweats HEENT: Reports: No Symptoms Respiratory: Reports: No Symptoms Cardiovascular: Reports: No Symptoms Endocrine: Reports: No Symptoms GI/Abdominal: Reports: No Symptoms : Reports: No Symptoms Musculoskeletal: Reports: No Symptoms Skin: Reports: Rash, Erythema (right gluteal region about 2x2cm) Neurological: Reports: No Symptoms Psychiatric: Reports: No Symptoms. Denies: Agitation, Anxiety Hematologic/Lymphatic: Reports: No Symptoms Immunologic: Reports: No Symptoms ED EXAM, SKIN/RASH Exam: See Below Exam Limited By: No Limitations General Appearance: Alert, WD/WN, No Apparent Distress, Obese Eye Exam: Bilateral Eye: EOMI, Normal Fundi, Normal Inspection Ears: Normal External Exam, Hearing Grossly Normal Nose: Normal Inspection Throat/Mouth: Normal Oropharynx Head: Atraumatic, Normocephalic Neck: Supple, Non-Tender Respiratory/Chest: No Respiratory Distress, Lungs Clear, Normal Breath Sounds Cardiovascular: Regular Rate, Rhythm Peripheral Pulses: 2+: Brachial (L), Brachial (R) GI/Abdominal: Soft, Non-Tender Rectal (Female) Exam: Perirectal Abscess (about 2x2cm, non fluctuant) Back Exam: Normal Inspection, Full Range of Motion Extremities: Normal Inspection, Normal Range of Motion Neurological: Alert, Oriented, CN II-XII Intact Psychiatric: Normal Affect Skin: Dry, Erythema, Increased Warmth. No: Lymphangitis Location, Skin: Perirectal Characteristics: Erythematous Associated features: Warmth, Tenderness, Swelling Lymphatic: No Adenopathy Course - Vital Signs Last Recorded V/S: Last Vital Signs Temp 36.2 C 08/01/21 01:30 Pulse 105 H 08/01/21 01:30 Resp 18 08/01/21 01:30 BP 138/74 08/01/21 01:30 Pulse Ox 98 08/01/21 01:30 - Orders/Labs/Meds Meds: Medications Discontinued Medications Generic Name Dose Route Start Last Admin Trade Name Freq PRN Reason Stop Dose Admin Hydrocodone Bitart/Acetaminophen 1 tab 08/01/21 01:58 08/01/21 02:03 Acetaminophen/Hydrocodone 325-5 Mg Tab PO 08/01/21 01:59 1 tab ONETIME ONE Administration Ceftriaxone Sodium 1 gm 08/01/21 01:57 08/01/21 02:03 Ceftriaxone 1 Gm Vial IM 08/01/21 01:58 1 gm ONETIME ONE Administration Ketorolac Tromethamine 60 mg 08/01/21 01:58 08/01/21 02:03 Ketorolac 30 Mg/Ml Sdv IM 08/01/21 01:59 60 mg ONETIME ONE Administration - Re-Assessments/Exams Free Text/Narrative Re-Assessment/Exam: 08/01/21 02:14 pt given dose of toradol and Ceftriaxone, norco 5/325 pain control is adequate 08/01/21 02:15 Departure - Departure Time of Disposition: 02:30 Disposition: Home, Self-Care 01 Condition: Good Clinical Impression: Pilonidal cyst without mention of abscess, Cellulitis and abscess of buttock - Discharge Information *PRESCRIPTION DRUG MONITORING PROGRAM REVIEWED*: Not Applicable *COPY OF PRESCRIPTION DRUG MONITORING REPORT IN PATIENT MERRILL: Not Applicable Prescriptions: oxyCODONE HCl/Acetaminophen [Endocet 5-325 Tablet] 1 each PO Q8HR #10 tablet Instructions: Pilonidal Cyst, Cellulitis, Adult, [id number] Referrals: Adalid Herrera, DO [Primary Care Provider] - Forms: ED Department Discharge Additional Instructions: 1) Warm salt water sitz bath every 4-6hrs 2) Complete antibiotics as prescribed by your PCP 3) See PCP or return to ER with symptoms get any worse Sepsis Event Note (ED) - Focused Exam Vital Signs: Vital Signs Temp Pulse Resp BP Pulse Ox 08/01/21 01:30 36.2 C 105 H 18 138/74 98
== END 2021-08-01 02:25 | disposition home or self-care (01) ==
LOC: FB.ED 01:28
DX: L05.01 Pilonidal cyst with abscess (principal); L03.317 Cellulitis of buttock; E78.00 Pure hypercholesterolemia, unspecified; I10 Essential (primary) hypertension; J45.909 Unspecified asthma, uncomplicated; E11.9 Type 2 diabetes mellitus without complications; E66.9 Obesity, unspecified; Z68.43 Body mass index [BMI] 50.0-59.9, adult; Z88.8 Allergy status to other drugs, medicaments and biological substances; Z88.6 Allergy status to analgesic agent; Z88.2 Allergy status to sulfonamides; Z91.048 Other nonmedicinal substance allergy status; Z79.4 Long term (current) use of insulin; Z79.899 Other long term (current) drug therapy
CPT/HCPCS: 96372; 99282; A9270; J0696; J1885

== ENCOUNTER 2021-08-02 22:55 | Inpatient (IN) | payer MEDICARE, MEDICAID ==
[2021-08-02] MEDS ORDERED: Acetaminophen 500 MG Tab PO ONE (23:40)
[2021-08-02] MEDS ORDERED: HYDROmorphone 2 MG/ML SDV IVPUSH ONE (23:45)
--- NOTE | 2021-08-02 23:51 | EDM.PDOC ---
ED HPI GENERAL MEDICAL PROBLEM - General Chief Complaint: Fever Stated Complaint: cyst on rear Time Seen by Provider: 08/02/21 23:35 Source of Information: Reports: Patient, Old Records, RN History Limitations: Reports: No Limitations - History of Present Illness INITIAL COMMENTS - FREE TEXT/NARRATIVE: 40 yo female was seen here yesterday for a R buttocks abscess and was started on oral antibiotic and was given [place] for pain relief. She comes tonight stating that she is worse. She had been having pain and low grade fevers she states for 4 days, but over the past 3 hrs her fever has been high. She also relates that she has RUQ abdominal pain since this AM and says that her gallbladder had already been removed. No cough or SOB. It hurts when she voids, but more in the back by her abscess. She is dizzy with standing, but says this is not new as she has POTS syndrome. Onset: Today (markedly worse today) Onset Date: 08/02/21 Duration: Hour(s):, Getting Worse Location: Reports: Abdomen (RUQ), Pelvis (R buttocks), Generalized Quality: Reports: Pressure Severity: Moderate Improves with: Reports: None Worsens with: Reports: Other (time) Context: Reports: Other (See HPI) Associated Symptoms: Reports: Fever/Chills Treatments JAVA ARCHITECT: Reports: NSAIDS, Other Medication(s), Other (see below) (no pain or fever reducers in the last 6 hrs) R buttock Pain Score (Numeric/FACES): 8 - Related Data Allergies Allergy/AdvReac Type Severity Reaction Status Date / Time gabapentin [From Neurontin] Allergy Intermediate Difficulty Verified 08/02/21 23:08 Breathing propoxyphene Allergy Unknown Other Verified 08/02/21 23:08 [From Darvocet-N] spironolactone Allergy Difficulty Verified 08/02/21 23:08 Swallowing sulfamethoxazole Allergy Diarrhea Verified 08/02/21 23:08 [From Bactrim] trimethoprim [From Bactrim] Allergy Diarrhea Verified 08/02/21 23:08 adhesives Allergy Rash Uncoded 08/02/21 23:08 Home Meds: Home Meds Albuterol [Proventil HFA] 2 puff INH Q4H PRN 08/16/18 [History] Pramipexole [Mirapex] 1 mg PO BEDTIME 08/16/18 [History] buPROPion [buPROPion XL] 150 mg PO DAILY 10/22/19 [History] FLUoxetine HCl [Fluoxetine HCl] 40 mg PO DAILY 11/06/19 [History] Midodrine 5 mg PO TIDMEALS 11/23/19 [History] Insulin Regular, Human [Humulin R U-500 Kwikpen] 100 unit SQ BEDTIME 12/07/19 [History] Insulin Regular, Human [Humulin R U-500 Kwikpen] 130 unit SQ ACLUNCH 12/07/19 [History] Doxycycline [Vibra-Tabs] 100 mg PO Q12HR #20 tab 01/17/21 [Rx] Folic Acid 1 mg PO DAILY 01/17/21 [History] Hydroxychloroquine [Plaquenil] 200 mg PO BID 01/17/21 [History] Rosuvastatin [Crestor] 20 mg PO DAILY 01/17/21 [History] Ibuprofen [Ibu] 800 mg PO Q8H PRN #30 tablet 04/25/21 [Rx] Ondansetron [Zofran ODT] 4 mg PO Q4H PRN #7 tab.dis 04/25/21 [Rx] diazePAM [Valium] 10 mg PO Q8H PRN #10 tablet 04/25/21 [Rx] oxyCODONE HCl/Acetaminophen [Endocet 5-325 Tablet] 1 each PO Q8HR #10 tablet 08/01/21 [Rx] Amoxicillin/Clavulanate K [Augmentin 875-125 MG] 1 tab PO BID 08/02/21 [History] Benzonatate [Tessalon Perle] 200 mg PO TID PRN 08/02/21 [History] Insulin Regular, Human [Humulin R U-500 Kwikpen] 240 unit SQ DAILY 08/02/21 [History] Past Medical History HEENT History: Reports: Impaired Vision Cardiovascular History: Reports: High Cholesterol, Hypertension, Syncope, Other (See Below) Other Cardiovascular History: POTS Respiratory History: Reports: Asthma, Sleep Apnea Other Respiratory History: CPAP machine. Gastrointestinal History: Reports: Cholelithiasis, Colon Polyp, GERD Other Gastrointestinal History: hx of bloody stools Genitourinary History: Reports: Renal Calculus, Renal Disease ENVIRONMENTAL HEALTH TECHNOLOGIST History: Reports: Endometriosis, Other ENVIRONMENTAL HEALTH TECHNOLOGIST History: cystic ovaries with surgery bilat ovaries. Musculoskeletal History: Reports: Fracture, Other (See Below) Other Musculoskeletal History: JOINT PAIN Neurological History: Reports: None Psychiatric History: Reports: Depression Other Psychiatric History: self harm in the past Endocrine/Metabolic History: Reports: Diabetes, Type II, Hypoparathyroidism, Obesity/BMI 30+, Other (See Below) Other Endocrine/Metabolic History: parathyroid tumor. HYPERCALCEMIA Hematologic History: Reports: None Immunologic History: Reports: None Oncologic (Cancer) History: Reports: None Dermatologic History: Reports: None - Infectious Disease History Infectious Disease History: Reports: Chicken Pox, Novel Coronavirus - Past Surgical History Head Surgeries/Procedures: Reports: None HEENT Surgical History: Reports: Oral Surgery, Tonsillectomy Cardiovascular Surgical History: Reports: None Respiratory Surgical History: Reports: None GI Surgical History: Reports: Appendectomy, Cholecystectomy, Colonoscopy Female Surgical History: Reports: Cystectomy, Salpingo-Oophorectomy, Other (See Below) Other Female Surgeries/Procedures: LEFT OVARY REMOVED; HX LAP DIAG, INCLUDING HYSTEROSCOPY, ENDOMETRIAL POLYPECTOMY ET CURRETTAGE, FULGURATION OF ENDOMETRIOSIS. CYSTOURETHROSCOPY /W RMVL URETERAL STONES. 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 brachial surgery left Oncologic Surgical History: Reports: None Dermatological Surgical History: Reports: None Social & Family History - Family History Family Medical History: No Pertinent Family History - Caffeine Use Caffeine Use: Reports: Soda - Living Situation & Occupation Living situation: Reports: , with Spouse Occupation: Employed ED ROS GENERAL - Review of Systems Review Of Systems: See Below Constitutional: Reports: Fever, Chills HEENT: Reports: No Symptoms Respiratory: Reports: No Symptoms Cardiovascular: Reports: Lightheadedness Endocrine: Reports: No Symptoms GI/Abdominal: Reports: Abdominal Pain (RUQ) : Reports: No Symptoms Musculoskeletal: Reports: No Symptoms Skin: Reports: Erythema (abscess R buttocks) ED EXAM, SEPSIS - Physical Exam Exam: See Below Exam Limited By: No Limitations General Appearance: Alert, WD/WN, Mild Distress, Obese Eye Exam: Bilateral Eye: Normal Inspection Ears: Normal External Exam, Normal Canal, Hearing Grossly Normal Nose: Normal Inspection, No Blood Throat/Mouth: Normal Inspection, Normal Lips, Normal Oropharynx, Normal Voice, No Airway Compromise Head: Atraumatic, Normocephalic Neck: Normal Inspection, Supple, Non-Tender Respiratory/Chest: No Respiratory Distress, Lungs Clear, Normal Breath Sounds, No Accessory Muscle Use Cardiovascular: Regular Rate, Rhythm, No Edema, Tachycardia GI/Abdominal Exam: Soft, No Distention, Tender (RUQ). No: Non-Tender Back: Normal Inspection. No: CVA Tenderness (R), CVA Tenderness (L) Extremities: Normal Inspection, Normal Range of Motion, Non-Tender, No Pedal Edema Neurological: Alert, Oriented, CN II-XII Intact, Normal Cognition, No Motor/Sensory Deficits Psychiatric: Normal Affect, Normal Mood Skin: Warm, Dry, Intact, Erythema (and firmness to the R buttocks near the midline) Course - Vital Signs Last Recorded V/S: Last Vital Signs Temp 37.9 C 08/03/21 00:52 Pulse 121 H 08/02/21 23:03 Resp 20 08/02/21 23:03 BP 174/100 H 08/02/21 23:03 Pulse Ox 93 L 08/02/21 23:03 - Orders/Labs/Meds Orders: Active Orders 24 hr Category Date Time Status Abdomen Pelvis w Cont [CT] Stat Exams 08/03/21 00:45 Taken CULTURE BLOOD [BC] Stat Lab 08/02/21 23:52 Received CULTURE BLOOD [BC] Stat Lab 08/03/21 01:33 Received Dextrose 50% in Water Med 08/03/21 00:25 Active 50 ml IVPUSH ASDIRECTED PRN Glucagon,Human Recombinant [GlucaGen] Med 08/03/21 00:25 Active 1 mg IM ASDIRECTED PRN Sodium Chloride 0.9% [Saline Flush] Med 08/02/21 23:40 Active 10 ml FLUSH ASDIRECTED PRN Saline Lock Insert [OM.PC] Routine Oth 08/02/21 23:40 Ordered Medication Orders Dextrose/Water (50% Dextrose In Water 50 Ml Syringe) 50 ml IVPUSH ASDIRECTED PRN PRN Reason: Hypoglycemia Glucagon (Glucagon,Human Recombinant 1 Mg Vial) 1 mg IM ASDIRECTED PRN PRN Reason: Hypoglycemia Sodium Chloride (Sodium Chloride 0.9% 10 Ml Syringe) 10 ml FLUSH ASDIRECTED PRN PRN Reason: Keep Vein Open Labs: Laboratory Tests 08/02/21 08/02/21 08/02/21 Range/Units 23:52 23:52 23:52 WBC 11.6 H (3.0-10.3) x10-3/uL RBC 4.21 (3.60-5.20) x10(6)uL Hgb 11.4 (11.4-15.5) g/dL Hct 35.1 (34.2-48.2) % MCV 83.4 (76.7-100.5) fL MCH 27.2 (23.9-33.9) pg MCHC 32.6 (31.9-34.8) g/dL RDW 16.1 (12.3-16.5) % Plt Count 197 (151-488) x10(3)uL Sodium 136 (135-145) mmol/L Potassium 3.7 (3.5-5.3) mmol/L Chloride 100 (100-110) mmol/L Carbon Dioxide 28 (21-32) mmol/L BUN 3 L (7-18) mg/dL Creatinine 0.9 (0.55-1.02) mg/dL Est Cr Clr Drug Dosing 69.42 mL/min Estimated GFR (MDRD) > 60 (>60) BUN/Creatinine Ratio 3.3 L (9-20) Glucose 304 H D (80-116) mg/dL Lactic Acid 2.4 H* (0.4-2.0) mmol/L Calcium 8.5 L (8.6-10.2) mg/dL C-Reactive Protein (0.5-0.9) mg/dL Urine Color (YELLOW) Urine Appearance (CLEAR) Urine pH (5.0-6.5) Ur Specific [place] (1.010-1.025) Urine Protein (NEGATIVE) mg/dL Urine Glucose (UA) (NORMAL) mg/dL Urine Ketones (NEGATIVE) mg/dL Urine Occult Blood (NEGATIVE) Urine Nitrite (NEGATIVE) Urine Bilirubin (NEGATIVE) Urine Urobilinogen (NEGATIVE) mg/dL Ur Leukocyte Esterase (NEGATIVE) Urine RBC (0-5) Urine WBC (0-5) Ur Squamous Epith Cells (NS,R,O) Amorphous Sediment Urine Bacteria (NS) 08/02/21 08/03/21 Range/Units 23:52 01:20 WBC (3.0-10.3) x10-3/uL RBC (3.60-5.20) x10(6)uL Hgb (11.4-15.5) g/dL Hct (34.2-48.2) % MCV (76.7-100.5) fL MCH (23.9-33.9) pg MCHC (31.9-34.8) g/dL RDW (12.3-16.5) % Plt Count (151-488) x10(3)uL Sodium (135-145) mmol/L Potassium (3.5-5.3) mmol/L Chloride (100-110) mmol/L Carbon Dioxide (21-32) mmol/L BUN (7-18) mg/dL Creatinine (0.55-1.02) mg/dL Est Cr Clr Drug Dosing mL/min Estimated GFR (MDRD) (>60) BUN/Creatinine Ratio (9-20) Glucose (80-116) mg/dL Lactic Acid (0.4-2.0) mmol/L Calcium (8.6-10.2) mg/dL C-Reactive Protein 23.7 H* (0.5-0.9) mg/dL Urine Color Yellow (YELLOW) Urine Appearance Slightly cloudy (CLEAR) Urine pH 6.5 (5.0-6.5) Ur Specific [place] 1.015 (1.010-1.025) Urine Protein Negative (NEGATIVE) mg/dL Urine Glucose (UA) >1000 H (NORMAL) mg/dL Urine Ketones 15 H (NEGATIVE) mg/dL Urine Occult Blood Moderate H (NEGATIVE) Urine Nitrite Negative (NEGATIVE) Urine Bilirubin Negative (NEGATIVE) Urine Urobilinogen Normal (NEGATIVE) mg/dL Ur Leukocyte Esterase Negative (NEGATIVE) Urine RBC 5-10 H (0-5) Urine WBC 0-5 (0-5) Ur Squamous Epith Cells Few H (NS,R,O) Amorphous Sediment Few Urine Bacteria Moderate H (NS) Meds: Medications Generic Name Dose Route Start Last Admin Trade Name Freq PRN Reason Stop Dose Admin Dextrose/Water 50 ml 08/03/21 00:25 50% Dextrose In Water 50 Ml Syringe IVPUSH ASDIRECTED PRN Hypoglycemia Glucagon 1 mg 08/03/21 00:25 Glucagon,Human Recombinant 1 Mg Vial IM ASDIRECTED PRN Hypoglycemia Sodium Chloride 10 ml 1023/21 23:40 Sodium Chloride 0.9% 10 Ml Syringe FLUSH ASDIRECTED PRN Keep Vein Open Discontinued Medications Generic Name Dose Route Start Last Admin Trade Name Asad PRN Reason Stop Dose Admin Acetaminophen 1,000 mg 08/02/21 23:40 08/02/21 23:30 Acetaminophen 500 Mg Tab PO 08/02/21 23:41 1,000 mg ONETIME ONE Administration Hydromorphone HCl 0.5 mg 08/02/21 23:45 08/03/21 01:50 Hydromorphone 2 Mg/Ml Sdv IVPUSH 08/02/21 23:46 0.5 mg ONETIME ONE Administration Lactated Ringer's 1,000 mls @ 999 mls/hr 08/03/21 00:22 08/03/21 02:09 Ringers, Lactated IV 08/03/21 01:22 999 mls/hr BOLUS ONE Administration Insulin Human Regular 40 unit 08/03/21 00:25 08/03/21 01:56 Insulin Regular, Human 100 Units/Ml 3 Ml Vial SUBCUT 08/03/21 00:26 40 units ONETIME ONE Administration Iopamidol 150 ml 08/03/21 00:55 08/03/21 02:11 Iopamidol 755 Mg/Ml 150 Ml Bottle IV 08/03/21 00:56 150 ml ONETIME ONE Administration - Radiology Interpretation Free Text/Narrative:: Abd/pelvis CT scan with IV contrast-cellulitis of R buttocks, no drainable fluid. No pathology to explain RUQ abdominal pain. Departure - Departure Time of Disposition: 02:45 Disposition: Admitted As Inpatient 67 Condition: Fair Clinical Impression: Cellulitis of right buttock, Elevated blood sugar - Discharge Information *PRESCRIPTION DRUG MONITORING PROGRAM REVIEWED*: Not Applicable *COPY OF PRESCRIPTION DRUG MONITORING REPORT IN PATIENT MERRILL: Not Applicable Referrals: Adalid Herrera DO [Primary Care Provider] - Forms: ED Department Discharge Sepsis Event Note (ED) - Evaluation Sepsis Screening Result: Possible Sepsis Risk - Focused Exam Vital Signs: Vital Signs Temp Temp Pulse Resp BP Pulse Ox 08/03/21 00:52 37.9 C 08/02/21 23:30 38.7 C H 08/02/21 23:03 38.7 C H 121 H 20 174/100 H 93 L - My Orders Last 24 Hours: My Active Orders 08/02/21 23:40 Sodium Chloride 0.9% [Saline Flush] 10 ml FLUSH ASDIRECTED PRN Saline Lock Insert [OM.PC] Routine 08/02/21 23:52 CULTURE BLOOD [BC] Stat 08/03/21 00:25 Dextrose 50% in Water 50 ml IVPUSH ASDIRECTED PRN Glucagon,Human Recombinant [GlucaGen] 1 mg IM ASDIRECTED PRN 08/03/21 00:45 Abdomen Pelvis w Cont [CT] Stat 08/03/21 01:33 CULTURE BLOOD [BC] Stat - Assessment/Plan Last 24 Hours: My Active Orders 08/02/21 23:40 Sodium Chloride 0.9% [Saline Flush] 10 ml FLUSH ASDIRECTED PRN Saline Lock Insert [OM.PC] Routine 08/02/21 23:52 CULTURE BLOOD [BC] Stat 08/03/21 00:25 Dextrose 50% in Water 50 ml IVPUSH ASDIRECTED PRN Glucagon,Human Recombinant [GlucaGen] 1 mg IM ASDIRECTED PRN 08/03/21 00:45 Abdomen Pelvis w Cont [CT] Stat 08/03/21 01:33 CULTURE BLOOD [BC] Stat
[2021-08-03] MEDS ORDERED: Lactated Ringers 1,000 ML IV ONE (00:22)
[2021-08-03] MEDS ORDERED: Glucagon,Human Recombinant 1 MG Vial IM PRN (00:25)
[2021-08-03] MEDS ORDERED: Insulin Regular, Human 100 Units/ML 3 ML Vial SUBCUT ONE (00:25)
[2021-08-03] MEDS ORDERED: 50% Dextrose in Water 50 ML Syringe IVPUSH PRN (00:25)
[2021-08-03] MEDS ORDERED: Iopamidol 755 MG/ML 150 ML Bottle IV ONE (00:55)
[2021-08-03] MEDS ORDERED: Ampicillin/Sulbactam Na 3 GM in Sodium Chloride 0.9% 100 ML IV ONE (02:35)
[2021-08-03] MEDS ORDERED: Enoxaparin 40 MG/0.4 ML Syringe SUBCUT SCH (02:45)
[2021-08-03] MEDS ORDERED: Ondansetron 4 MG Tab.DIS PO PRN (02:45)
[2021-08-03] MEDS ORDERED: Docusate Sodium 100 MG Cap PO PRN (02:45)
[2021-08-03] MEDS ORDERED: Albuterol 8 GM Inhaler INH PRN (02:52)
[2021-08-03] MEDS ORDERED: Lactated Ringers 1,000 ML IV SCH (03:00)
[2021-08-03] MEDS: HYDROmorphone 2 MG/ML SDV IVPUSH PRN (05:50)
[2021-08-03] MEDS ORDERED: Doxycycline 100 MG Tab PO ONE (06:00)
[2021-08-03] MEDS: Acetaminophen 325 MG Tab PO PRN ×4 (06:12→23:20)
[2021-08-03] MEDS: Rosuvastatin 20 MG Tab PO SCH (08:42)
[2021-08-03] MEDS: Midodrine 5 MG Tab PO SCH ×4 (08:42→18:30)
[2021-08-03] MEDS: Folic Acid 1 MG Tab PO SCH (08:43)
[2021-08-03] MEDS: Enoxaparin 40 MG/0.4 ML Syringe SUBCUT SCH (08:45)
[2021-08-03] MEDS: FLUoxetine 20 MG Cap PO SCH (08:45)
[2021-08-03] MEDS: buPROPion 150 MG Tab.ER PO SCH (08:47)
[2021-08-03] MEDS ORDERED: INSULIN REGULAR HUMAN SQ SCH (09:00)
[2021-08-03] MEDS ORDERED: [UNRECOGNIZED DRUG - OTHER] SQ SCH (09:00)
[2021-08-03] MEDS ORDERED: Insulin Regular, Human 100 Units/ML 3 ML Vial SUBCUT SCH (09:00)
[2021-08-03] MEDS ORDERED: Insulin Lispro 100 Unit/ML 3 ML KwikPen SUBCUT SCH ×3 (09:00→21:00)
[2021-08-03] MEDS ORDERED: Insulin Lispro 100 Unit/ML 3 ML KwikPen SUBCUT ONE (09:11)
[2021-08-03] MEDS ORDERED: Doxycycline 100 MG in Sodium Chloride 0.9% 100 ML IV SCH (09:15)
[2021-08-03] MEDS ORDERED: oxyCODONE 5 MG Tab PO PRN (09:16)
[2021-08-03] MEDS: Ketorolac 30 MG/ML SDV IVPUSH SCH ×3 (09:50→21:18)
[2021-08-03] MEDS: cefTRIAXone 2 GM Vial IVPUSH SCH (09:52)
[2021-08-03] MEDS: Sodium Chloride 0.9% 10 ML Syringe FLUSH PRN ×4 (09:53→21:19)
[2021-08-03] MEDS: Insulin Lispro 100 Unit/ML 3 ML KwikPen SUBCUT SCH ×2 (11:37→17:36)
--- NOTE | 2021-08-03 14:01 | PCM.HP.2 ---
H&P History of Present Illness - General Date of Service: 08/03/21 Admit Problem/Dx: Admission Diagnosis/Problem Admission Diagnosis/Problem Cellulitis of right buttock Source of Information: Patient, Provider History Limitations: Reports: No Limitations - History of Present Illness Initial Comments - Free Text/Narative: Keila states she started having pain in right buttock on , was worsening so was seen in ER on 08/01, given Augmentin & Doxycycline and went home. Came back last night with fevers, Temp 101.3F, this morning her temp is 102.2F and worsening pain. She states she has diarrhea after she eats usually, she has her gallbladder out and not on Metformin. Chills, no nausea or vomiting. Hurts when she voids. No cough, shortness of breath, chest pain. She sees Endocrinology at [facility], for brittle type 2 DM, has been on many different meds but Humulin R has been working, she is on very high doses, 240 units in am, 130 units at lunch, 100 units at pm. She has noticed that if she is 144 at dinner her sensor will go off about 4am that her sugars are low, been in 60s. She stated she tried Trulicity but sugars went up to 600s, also Tresiba. She states she wasn't on insulin with the Trulicity. She also started having vaginal discharge today, white, usually gets yeasts infections on antibiotics. R buttock Pain Score (Numeric/FACES): 7 - Related Data Allergies/Adverse Reactions: Allergies Allergy/AdvReac Type Severity Reaction Status Date / Time gabapentin [From Neurontin] Allergy Intermediate Difficulty Verified 08/02/21 23:08 Breathing propoxyphene Allergy Unknown Other Verified 08/02/21 23:08 [From Darvocet-N] spironolactone Allergy Difficulty Verified 08/02/21 23:08 Swallowing sulfamethoxazole Allergy Diarrhea Verified 08/02/21 23:08 [From Bactrim] trimethoprim [From Bactrim] Allergy Diarrhea Verified 08/02/21 23:08 adhesives Allergy Rash Uncoded 08/02/21 23:08 Home Medications: Home Meds Albuterol [Proventil HFA] 2 puff INH Q4H PRN 08/16/18 [History] Pramipexole [Mirapex] 1 mg PO BEDTIME 08/16/18 [History] buPROPion [buPROPion XL] 150 mg PO DAILY 10/22/19 [History] FLUoxetine HCl [Fluoxetine HCl] 40 mg PO DAILY 11/06/19 [History] Midodrine 5 mg PO TIDMEALS 11/23/19 [History] Insulin Regular, Human [Humulin R U-500 Kwikpen] 100 unit SQ BEDTIME 12/07/19 [History] Insulin Regular, Human [Humulin R U-500 Kwikpen] 130 unit SQ ACLUNCH 12/07/19 [History] Doxycycline [Vibra-Tabs] 100 mg PO Q12HR #20 tab 01/17/21 [Rx] Folic Acid 1 mg PO DAILY 01/17/21 [History] Hydroxychloroquine [Plaquenil] 200 mg PO BID 01/17/21 [History] Rosuvastatin [Crestor] 20 mg PO DAILY 01/17/21 [History] Ibuprofen [Ibu] 800 mg PO Q8H PRN #30 tablet 04/25/21 [Rx] Ondansetron [Zofran ODT] 4 mg PO Q4H PRN #7 tab.dis 04/25/21 [Rx] diazePAM [Valium] 10 mg PO Q8H PRN #10 tablet 04/25/21 [Rx] oxyCODONE HCl/Acetaminophen [Endocet 5-325 Tablet] 1 each PO Q8HR #10 tablet 08/01/21 [Rx] Amoxicillin/Clavulanate K [Augmentin 875-125 MG] 1 tab PO BID 08/02/21 [History] Benzonatate [Tessalon Perle] 200 mg PO TID PRN 08/02/21 [History] Insulin Regular, Human [Humulin R U-500 Kwikpen] 240 unit SQ DAILY 08/02/21 [His tory] Past Medical History HEENT History: Reports: Impaired Vision Cardiovascular History: Reports: High Cholesterol, Hypertension, Syncope, Other (See Below) Other Cardiovascular History: POTS--orthostatic tachycardia syndrome. Respiratory History: Reports: Asthma, Sleep Apnea Other Respiratory History: CPAP machine. Gastrointestinal History: Reports: Cholelithiasis, Colon Polyp, GERD Other Gastrointestinal History: History of bloody stools. 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 . Musculoskeletal History: Reports: Fracture, Other (See Below) Other Musculoskeletal History: Joint pain. Neurological History: Reports: None Psychiatric History: Reports: Anxiety, Depression Other Psychiatric History: Self harm in the past. Endocrine/Metabolic History: Reports: Diabetes, Type II, Hypoparathyroidism, Obesity/BMI 30+, Other (See Below) Other Endocrine/Metabolic History: Parathyroid tumor. Hypercalcemia. Hematologic History: Reports: None Immunologic History: Reports: None Oncologic (Cancer) History: Reports: None Dermatologic History: Reports: Other (See Below) Other Dermatologic History: Cyst to right buttock, - Infectious Disease History Infectious Disease History: Reports: Chicken Pox, Novel Coronavirus - Past Surgical History HEENT Surgical History: Reports: Oral Surgery, Tonsillectomy GI Surgical History: Reports: Appendectomy, Cholecystectomy, Colonoscopy Female Surgical History: Reports: Cystectomy, Salpingo-Oophorectomy, Other (See Below) Other Female Surgeries/Procedures: Left ovary removed. Hysteroscopy, endometrial polypectomy and currettage. Fulgeration of endometriosis. Cystourethroscopy with removal ureteral stones. Ureteroscopy. Endocrine Surgical History: Reports: Parathyroidectomy Other Endocrine Surgeries/Procedures: Parathyroid tumor removed. Musculoskeletal Surgical History: Reports: ORIF Other Musculoskeletal Surgeries/Procedures:: Brachial surgery left. Left ankle surgery X4. Right ankle surgery X2. Social & Family History - Family History Family Medical History: No Pertinent Family History - Tobacco Use Tobacco Use Status *Q: Never Tobacco User - Caffeine Use Caffeine Use: Reports: Soda - Recreational Drug Use Recreational Drug Use: No - Living Situation & Occupation Living situation: Reports: , with Spouse Occupation: Employed H&P Review of Systems - Review of Systems: Review Of Systems: See Below General: Reports: Fever, Chills, Fatigue HEENT: Reports: No Symptoms Pulmonary: Reports: No Symptoms Cardiovascular: Reports: No Symptoms Gastrointestinal: Reports: Bloody Stool (hemorrhoids, mucosy), Diarrhea (with meals). Denies: Abdominal Pain Genitourinary: Reports: Burning, Other (vaginal white discharge). Denies: Dysuria, Frequency Skin: Reports: Erythema Psychiatric: Reports: No Symptoms Neurological: Reports: No Symptoms Hematologic/Lymphatic: Reports: No Symptoms Exam - Exam Exam: See Below - Vital Signs Vital Signs: Last Vital Signs Temp 102.2 F H 08/03/21 10:31 Pulse 110 H 08/03/21 08:00 Resp 20 08/03/21 08:00 BP 127/69 08/03/21 08:00 Pulse Ox 95 08/03/21 08:00 Weight: 333 lb 9.6 oz - Exam General: Alert, Oriented, Cooperative, Other (Flushed). No: Mild Distress HEENT: PERRLA, EOMI, Hearing Intact, Mucosa Moist & [place] Neck: Trachea Midline Lungs: Clear to Auscultation, Normal Respiratory Effort Cardiovascular: Regular Rate, Regular Rhythm GI/Abdominal Exam: Normal Bowel Sounds, Soft, Non-Tender, No Distention, Other (obese) (Female) Exam: Normal External Exam, Vaginal Discharge Rectal (Female) Exam: Hemorrhoids, Tenderness (right buttock) Extremities: No Pedal Edema, Normal Capillary Refill, Increased Warmth (right buttock), Redness (right gluteal fold;) Peripheral Pulses: 2+: Radial (L), Radial (R) Skin: Other (right buttock: firm, indurated but no fluctuance, erythema now more in gluteal fold, very TTP) Neurological: Cranial Nerves Intact, Normal Speech, Normal Tone - Patient Data Lab Results Last 24 hrs: Laboratory Results - last 24 hr 08/02/21 08/02/21 08/02/21 Range/Units 23:52 23:52 23:52 WBC 11.6 H (3.0-10.3) x10-3/uL RBC 4.21 (3.60-5.20) x10(6)uL Hgb 11.4 (11.4-15.5) g/dL Hct 35.1 (34.2-48.2) % MCV 83.4 (76.7-100.5) fL MCH 27.2 (23.9-33.9) pg MCHC 32.6 (31.9-34.8) g/dL RDW 16.1 (12.3-16.5) % Plt Count 197 (151-488) x10(3)uL Sodium 136 (135-145) mmol/L Potassium 3.7 (3.5-5.3) mmol/L Chloride 100 (100-110) mmol/L Carbon Dioxide 28 (21-32) mmol/L BUN 3 L (7-18) mg/dL Creatinine 0.9 (0.55-1.02) mg/dL Est Cr Clr Drug Dosing 69.42 mL/min Estimated GFR (MDRD) > 60 (>60) BUN/Creatinine Ratio 3.3 L (9-20) Glucose 304 H D (80-116) mg/dL POC Glucose (80-116) mg/dL Lactic Acid 2.4 H* (0.4-2.0) mmol/L Calcium 8.5 L (8.6-10.2) mg/dL C-Reactive Protein (0.5-0.9) mg/dL Urine Color (YELLOW) Urine Appearance (CLEAR) Urine pH (5.0-6.5) Ur Specific [place] (1.010-1.025) Urine Protein (NEGATIVE) mg/dL Urine Glucose (UA) (NORMAL) mg/dL Urine Ketones (NEGATIVE) mg/dL Urine Occult Blood (NEGATIVE) Urine Nitrite (NEGATIVE) Urine Bilirubin (NEGATIVE) Urine Urobilinogen (NEGATIVE) mg/dL Ur Leukocyte Esterase (NEGATIVE) Urine RBC (0-5) Urine WBC (0-5) Ur Squamous Epith Cells (NS,R,O) Amorphous Sediment Urine Bacteria (NS) SARS-CoV-2 RNA (VINCENT) (NEGATIVE) 08/02/21 08/03/21 08/03/21 Range/Units 23:52 01:20 02:50 WBC (3.0-10.3) x10-3/uL RBC (3.60-5.20) x10(6)uL Hgb (11.4-15.5) g/dL Hct (34.2-48.2) % MCV (76.7-100.5) fL MCH (23.9-33.9) pg MCHC (31.9-34.8) g/dL RDW (12.3-16.5) % Plt Count (151-488) x10(3)uL Sodium (135-145) mmol/L Potassium (3.5-5.3) mmol/L Chloride (100-110) mmol/L Carbon Dioxide (21-32) mmol/L BUN (7-18) mg/dL Creatinine (0.55-1.02) mg/dL Est Cr Clr Drug Dosing mL/min Estimated GFR (MDRD) (>60) BUN/Creatinine Ratio (9-20) Glucose (80-116) mg/dL POC Glucose (80-116) mg/dL Lactic Acid (0.4-2.0) mmol/L Calcium (8.6-10.2) mg/dL C-Reactive Protein 23.7 H* (0.5-0.9) mg/dL Urine Color Yellow (YELLOW) Urine Appearance Slightly cloudy (CLEAR) Urine pH 6.5 (5.0-6.5) Ur Specific [place] 1.015 (1.010-1.025) Urine Protein Negative (NEGATIVE) mg/dL Urine Glucose (UA) >1000 H (NORMAL) mg/dL Urine Ketones 15 H (NEGATIVE) mg/dL Urine Occult Blood Moderate H (NEGATIVE) Urine Nitrite Negative (NEGATIVE) Urine Bilirubin Negative (NEGATIVE) Urine Urobilinogen Normal (NEGATIVE) mg/dL Ur Leukocyte Esterase Negative (NEGATIVE) Urine RBC 5-10 H (0-5) Urine WBC 0-5 (0-5) Ur Squamous Epith Cells Few H (NS,R,O) Amorphous Sediment Few Urine Bacteria Moderate H (NS) SARS-CoV-2 RNA (VINCENT) Negative (NEGATIVE) 08/03/21 08/03/21 08/03/21 Range/Units 03:02 03:49 11:31 WBC (3.0-10.3) x10-3/uL RBC (3.60-5.20) x10(6)uL Hgb (11.4-15.5) g/dL Hct (34.2-48.2) % MCV (76.7-100.5) fL MCH (23.9-33.9) pg MCHC (31.9-34.8) g/dL RDW (12.3-16.5) % Plt Count (151-488) x10(3)uL Sodium (135-145) mmol/L Potassium (3.5-5.3) mmol/L Chloride (100-110) mmol/L Carbon Dioxide (21-32) mmol/L BUN (7-18) mg/dL Creatinine (0.55-1.02) mg/dL Est Cr Clr Drug Dosing mL/min Estimated GFR (MDRD) (>60) BUN/Creatinine Ratio (9-20) Glucose (80-116) mg/dL POC Glucose 209 H 300 H D (80-116) mg/dL Lactic Acid 1.6 (0.4-2.0) mmol/L Calcium (8.6-10.2) mg/dL C-Reactive Protein (0.5-0.9) mg/dL Urine Color (YELLOW) Urine Appearance (CLEAR) Urine pH (5.0-6.5) Ur Specific [place] (1.010-1.025) Urine Protein (NEGATIVE) mg/dL Urine Glucose (UA) (NORMAL) mg/dL Urine Ketones (NEGATIVE) mg/dL Urine Occult Blood (NEGATIVE) Urine Nitrite (NEGATIVE) Urine Bilirubin (NEGATIVE) Urine Urobilinogen (NEGATIVE) mg/dL Ur Leukocyte Esterase (NEGATIVE) Urine RBC (0-5) Urine WBC (0-5) Ur Squamous Epith Cells (NS,R,O) Amorphous Sediment Urine Bacteria (NS) SARS-CoV-2 RNA (VINCENT) (NEGATIVE) Result Diagrams: 08/02/21 23:52 08/02/21 23:52 Sepsis Event Note - Evaluation Sepsis Screening Result: Possible Sepsis Risk - Focused Exam Vital Signs: Vital Signs Temp Temp Temp Pulse Pulse Resp BP 08/03/21 10:31 102.2 F H 08/03/21 10:30 102.2 F H 08/03/21 08:00 100.7 F H 110 H 20 08/03/21 05:55 101.3 F H 115 H 18 135/94 H 08/03/21 04:00 99.5 F 112 H 18 122/69 08/03/21 02:16 97.5 F 119 H 20 BP Pulse Ox 08/03/21 10:31 08/03/21 10:30 08/03/21 08:00 127/69 95 08/03/21 05:55 98 08/03/21 04:00 94 L 08/03/21 02:16 157/86 H 96 *Q Meaningful Use (ADM) - VTE Risk Assess *Q Each Risk Factor Represents 1 Point: Obesity ( BMI > 25 kg/m2) Total Score 1 Point Risk Factors: 1 Each Risk Factor Represents 2 Points: None Total Score 2 Point Risk Factors: 0 Each Risk Factor Represents 3 Points: None Total Score 3 Point Risk Factors: 0 Each Risk Factor Represents 5 Points: None Total Score 5 Point Risk Factors: 0 Venous Thromboembolism Risk Factor Score *Q: 1 - Problem List (1) Cellulitis of right buttock SNOMED Code(s): 92540488 ICD Code: L03.317 - CELLULITIS OF BUTTOCK Status: Acute Current Visit: Yes (2) Yeast vaginitis SNOMED Code(s): 96097908 ICD Code: B37.3 - CANDIDIASIS OF VULVA AND VAGINA Status: Acute Current Visit: Yes (3) Brittle diabetes mellitus SNOMED Code(s): 78911920 ICD Code: E10.9 - TYPE 1 DIABETES MELLITUS WITHOUT COMPLICATIONS Status: Chronic Current Visit: Yes (4) Morbid obesity SNOMED Code(s): 068043398 ICD Code: E66.01 - MORBID (SEVERE) OBESITY DUE TO EXCESS CALORIES Status: Chronic Current Visit: No Problem List Initiated/Reviewed/Updated: Yes Orders Last 24hrs: Active Orders 24 hr Category Date Time Status Patient Status [ADT] Routine ADT 08/03/21 02:45 Active Bedrest Bedside Commode [RC] .PRN Care 08/03/21 02:45 Active Blood Glucose Check, Bedside [RC] QIDACANDBED Care 08/03/21 09:07 Active Height and Weight [RC] 06 Care 08/03/21 02:45 Active Oxygen Therapy [RC] .PRN Care 08/03/21 02:45 Active RT Post Treatment Assessment [RC] .PRN Care 08/03/21 02:54 Active Vital Signs [RC] 00,04,08,12,16,20 Care 08/03/21 02:45 Active Consistent Carbohydrate Diet [DIET] Diet 08/03/21 Breakfast Active Abdomen Pelvis w Cont [CT] Stat Exams 08/03/21 00:45 Taken BASIC METABOLIC PANEL,BMP [CHEM] Routine Lab 08/04/21 06:00 Ordered CBC WITH AUTO DIFF [HEME] Routine Lab 08/04/21 06:00 Ordered CULTURE BLOOD [BC] Stat Lab 08/02/21 23:52 Received CULTURE BLOOD [BC] Stat Lab 08/03/21 01:33 Received Acetaminophen [TylenoL] Med 08/03/21 02:45 Active 650 mg PO Q4H PRN Albuterol [Ventolin HFA] Med 08/03/21 02:52 Active 0 gm INH Q4H PRN Dextrose 50% in Water Med 08/03/21 00:25 Active 50 ml IVPUSH ASDIRECTED PRN Docusate Sodium [Colace] Med 08/03/21 02:45 Active 100 mg PO BID PRN Doxycycline [Vibramycin] 100 mg Med 08/03/21 18:00 Active Sodium Chloride 0.9% [Normal Saline] 100 ml IV Q12H Enoxaparin [Lovenox] Med 08/03/21 09:00 Active 40 mg SUBCUT Q24H FLUoxetine [PROzac] Med 08/03/21 09:00 Active 40 mg PO DAILY Folic Acid Med 08/03/21 09:00 Active 1 mg PO DAILY Glucagon,Human Recombinant [GlucaGen] Med 08/03/21 00:25 Active 1 mg IM ASDIRECTED PRN HYDROmorphone [Dilaudid] Med 08/03/21 02:45 Active 0.5 mg IVPUSH Q2H PRN Insulin Lispro [HumaLOG] Med 08/03/21 12:00 Active See Protocol SUBCUT TIDMEALS Ketorolac [Toradol] Med 08/03/21 09:15 Active 30 mg IVPUSH Q6H Midodrine Med 08/03/21 08:00 Active 5 mg PO TIDMEALS Ondansetron [Zofran ODT] Med 08/03/21 02:52 Active 4 mg PO Q4H PRN Pramipexole [Mirapex] Med 08/03/21 21:00 Active 1 mg PO BEDTIME Rosuvastatin [Crestor] Med 08/03/21 09:00 Active 20 mg PO DAILY Sodium Chloride 0.9% [Saline Flush] Med 08/02/21 23:40 Active 10 ml FLUSH ASDIRECTED PRN buPROPion [Wellbutrin XL] Med 08/03/21 09:00 Active 150 mg PO DAILY cefTRIAXone [Rocephin] Med 08/03/21 09:15 Active 2 gm IVPUSH Q24H oxyCODONE Med 08/03/21 09:16 Active 5 mg PO Q8H PRN Convert IV to Peripheral Lock [Convert IV to Saline Oth 08/03/21 09:12 Ordered Lock] [OM.PC] Routine Saline Lock Insert [OM.PC] Routine Oth 08/02/21 23:40 Ordered Resuscitation Status Routine Resus Stat 08/03/21 02:45 Ordered Medication Orders Acetaminophen (Acetaminophen 325 Mg Tab) 650 mg PO Q4H PRN PRN Reason: Pain (Mild 1-3)/fever Last Admin: 08/03/21 10:31 Dose: 650 mg Documented by: Admin: 08/03/21 06:12 Dose: 650 mg Documented by: HERBER Albuterol (Albuterol 8 Gm Inhaler) 0 gm INH Q4H PRN PRN Reason: Wheezing Bupropion HCl (Bupropion 150 Mg Tab.Er) 150 mg PO DAILY [facility] Last Admin: 08/03/21 08:47 Dose: 150 mg Documented by: DEB Ceftriaxone Sodium (Ceftriaxone 2 Gm Vial) 2 gm IVPUSH Q24H [facility] Last Admin: 08/03/21 09:52 Dose: 2 gm Documented by: DEB Dextrose/Water (50% Dextrose In Water 50 Ml Syringe) 50 ml IVPUSH ASDIRECTED PRN PRN Reason: Hypoglycemia Docusate Sodium (Docusate Sodium 100 Mg Cap) 100 mg PO BID PRN PRN Reason: Constipation Enoxaparin Sodium (Enoxaparin 40 Mg/0.4 Ml Syringe) 40 mg SUBCUT Q24H [facility] Last Admin: 08/03/21 08:45 Dose: 40 mg Documented by: DEB Fluoxetine HCl (Fluoxetine 20 Mg Cap) 40 mg PO DAILY [facility] Last Admin: 08/03/21 08:45 Dose: 40 mg Documented by: DEB Folic Acid (Folic Acid 1 Mg Tab) 1 mg PO DAILY [facility] Last Admin: 08/03/21 08:43 Dose: 1 mg Documented by: DEB Glucagon (Glucagon,Human Recombinant 1 Mg Vial) 1 mg IM ASDIRECTED PRN PRN Reason: Hypoglycemia Hydromorphone HCl (Hydromorphone 2 Mg/Ml Sdv) 0.5 mg IVPUSH Q2H PRN PRN Reason: Pain (severe 7-10) Last Admin: 08/03/21 05:50 Dose: 0.5 mg Documented by: HERBER Doxycycline Hyclate 100 mg/ (Sodium Chloride) 100 mls @ 100 mls/hr IV Q12H [facility] Insulin Human Lispro (Insulin Lispro 100 Unit/Ml 3 Ml Kwikpen) 0 unit SUBCUT TIDMEALS [facility]; Protocol Last Admin: 08/03/21 11:37 Dose: 12 units Documented by: DEB Cosigned by: MU Ketorolac Tromethamine (Ketorolac 30 Mg/Ml Sdv) 30 mg IVPUSH Q6H [facility] Stop: 08/08/21 09:09 Last Admin: 08/03/21 09:50 Dose: 30 mg Documented by: DEB Midodrine (Midodrine 5 Mg Tab) 5 mg PO TIDMEALS [facility] Last Admin: 08/03/21 11:36 Dose: 5 mg Documented by: Admin: 08/03/21 08:42 Dose: 5 mg Documented by: DEB Ondansetron HCl (Ondansetron 4 Mg Tab.Dis) 4 mg PO Q4H PRN PRN Reason: Nausea Oxycodone HCl (Oxycodone 5 Mg Tab) 5 mg PO Q8H PRN PRN Reason: Breakthrough Pain Last Admin: 08/03/21 10:34 Dose: 5 mg Documented by: DEB Pramipexole Dihydrochloride (Pramipexole 1 Mg Tab) 1 mg PO BEDTIME [facility] Rosuvastatin Calcium (Rosuvastatin 20 Mg Tab) 20 mg PO DAILY [facility] Last Admin: 08/03/21 08:42 Dose: 20 mg Documented by: DEB Sodium Chloride (Sodium Chloride 0.9% 10 Ml Syringe) 10 ml FLUSH ASDIRECTED PRN PRN Reason: Keep Vein Open Last Admin: 08/03/21 09:53 Dose: 10 ml Documented by: DEB Assessment/Plan Comment:: 1. Admit for cellulitis of right buttock, yeast vaginitis. 2. Cellulitis: Rocephin 2g IV q24h, Doxycycline 100 mg IV q12h, CBC, BMP tomorrow. CRP 23.[address] abdomen/pelvis showed no abscess formation/ drainable fluid collection of right buttock. Tylenol 650 mg q4h as needed, Toradol 30 mg IV q6h as needed; Oxycodone 5 mg q6h as needed, Dilaudid 0.5 mg IV as needed severe pain. If not improving then repeat imaging and consult surgery. 3. Yeast vaginitis: Fluconazole 150 mg day 1 and repeat day 4. 4. Brittle type 2 DM: Glucose checks qidac&hs, will do sliding scale Humalog will she is here and try to add long acting insulin once we have her 24 hour insulin use. Her glu this am was 144 so no insulin given. Will check her [facility] chart to see all what she has been on for her Diabetes. 5. Diet: Consistent carbs. 6. Activity: as tolerated. 7. DVT prophylaxis: ambulate. 8. CODE STATUS: FULL. 9. Discharge planning: afebrile for at least 24 hours, continue improvement of cellulitis and monitoring for abscess formation. Adjust treatments as necessary, 48-72 hours of IV antibiotics anticipated. - Mortality Measure Prognosis:: Good
[2021-08-03] MEDS ORDERED: Fluconazole 150 MG Tab PO ONE (14:03)
[2021-08-03] MEDS: oxyCODONE 5 MG Tab PO PRN (17:00)
[2021-08-03] MEDS: Ondansetron 4 MG Tab.DIS PO PRN (17:35)
[2021-08-03] MEDS: Doxycycline 100 MG in Sodium Chloride 0.9% 100 ML IV SCH (18:05)
[2021-08-04] MEDS: Ketorolac 30 MG/ML SDV IVPUSH SCH ×4 (03:27→21:57)
[2021-08-04] MEDS: Sodium Chloride 0.9% 10 ML Syringe FLUSH PRN ×7 (03:28→17:00)
[2021-08-04] MEDS: Doxycycline 100 MG in Sodium Chloride 0.9% 100 ML IV SCH ×2 (05:20→17:21)
[2021-08-04] MEDS: Insulin Lispro 100 Unit/ML 3 ML KwikPen SUBCUT SCH ×3 (08:40→18:07)
[2021-08-04] MEDS: Midodrine 5 MG Tab PO SCH ×4 (08:41→17:27)
[2021-08-04] MEDS: HYDROmorphone 2 MG/ML SDV IVPUSH PRN ×2 (08:52→14:40)
[2021-08-04] MEDS: Ondansetron 4 MG Tab.DIS PO PRN ×3 (08:58→22:34)
[2021-08-04] MEDS: Folic Acid 1 MG Tab PO SCH (09:04)
[2021-08-04] MEDS: Enoxaparin 40 MG/0.4 ML Syringe SUBCUT SCH (09:04)
[2021-08-04] MEDS: Rosuvastatin 20 MG Tab PO SCH (09:04)
[2021-08-04] MEDS: buPROPion 150 MG Tab.ER PO SCH (09:05)
[2021-08-04] MEDS: FLUoxetine 20 MG Cap PO SCH (09:05)
[2021-08-04] MEDS: cefTRIAXone 2 GM Vial IVPUSH SCH (09:05)
[2021-08-04] MEDS: oxyCODONE 5 MG Tab PO PRN ×3 (10:53→23:21)
--- NOTE | 2021-08-04 14:38 | PCM.PN ---
- General Info Date of Service: 08/04/21 Subjective Update: States pain is tolerable, but feels like it is worse. No fever today. Headache but wasn't sitting up after the Midodrine. No nausea, vomiting. Vaginal discharge is better today after fluconazole yesterday. Review of her [facility] chart, when she has been hospitalized in [place], they have used Levemir and sliding scale when she was in. She has been on high doses of Humilin R U-500 for few years, diagnosed in 2016, on insulin since 2019. Was on Tresiba until 2019 in addition to U-500. BS have been in 200s. - Patient Data Vitals - Most Recent: Last Vital Signs Temp 99 F 08/04/21 06:30 Pulse 100 08/04/21 06:30 Resp 18 08/04/21 06:30 BP 124/71 08/04/21 06:30 Pulse Ox 96 08/04/21 06:30 Weight - Most Recent: 331 lb 4.8 oz I&O - Last 24 Hours: Intake & Output 08/03/21 08/04/21 08/04/21 22:59 06:59 14:59 Intake Total 200 250 Output Total 500 300 Balance -300 -50 Lab Results Last 24 Hours: Laboratory Results - last 24 hr 08/03/21 08/04/21 08/04/21 Range/Units 17:31 06:10 06:10 WBC 10.5 H (3.0-10.3) x10-3/uL RBC 3.57 L (3.60-5.20) x10(6)uL Hgb 9.9 L (11.4-15.5) g/dL Hct 29.2 L (34.2-48.2) % MCV 81.7 (76.7-100.5) fL MCH 27.9 (23.9-33.9) pg MCHC 34.1 (31.9-34.8) g/dL RDW 16.1 (12.3-16.5) % Plt Count 188 (151-488) x10(3)uL MPV 6.9 L (7.1-12.4) fL Neut % (Auto) 76.9 H (30.8-76.2) % Lymph % (Auto) 14.1 L (18.4-52.1) % [place] % (Auto) 7.6 (4.4-15.7) % Eos % (Auto) 0.8 (0.6-8.1) % Baso % (Auto) 0.6 (0.2-1.5) % Neut # (Auto) 8.1 H (1.5-6.3) x10-3/uL Lymph # (Auto) 1.5 (1.0-4.4) x10-3/uL [place] # (Auto) 0.8 (0.3-1.0) x10-3/uL Eos # (Auto) 0.1 (0.0-0.8) x10-3/uL Baso # (Auto) 0.1 (0.0-0.1) x10-3/uL Sodium 137 (135-145) mmol/L Potassium 3.9 (3.5-5.3) mmol/L Chloride 101 (100-110) mmol/L Carbon Dioxide 27 (21-32) mmol/L BUN 6 L (7-18) mg/dL Creatinine 0.8 (0.55-1.02) mg/dL Est Cr Clr Drug Dosing 74.67 mL/min Estimated GFR (MDRD) > 60 (>60) BUN/Creatinine Ratio 7.5 L (9-20) Glucose 284 H (80-116) mg/dL POC Glucose 255 H (80-116) mg/dL Calcium 8.8 (8.6-10.2) mg/dL 08/04/ Range/Units 12:00 WBC (3.0-10.3) x10-3/uL RBC (3.60-5.20) x10(6)uL Hgb (11.4-15.5) g/dL Hct (34.2-48.2) % MCV (76.7-100.5) fL MCH (23.9-33.9) pg MCHC (31.9-34.8) g/dL RDW (12.3-16.5) % Plt Count (151-488) x10(3)uL MPV (7.1-12.4) fL Neut % (Auto) (30.8-76.2) % Lymph % (Auto) (18.4-52.1) % [place] % (Auto) (4.4-15.7) % Eos % (Auto) (0.6-8.1) % Baso % (Auto) (0.2-1.5) % Neut # (Auto) (1.5-6.3) x10-3/uL Lymph # (Auto) (1.0-4.4) x10-3/uL [place] # (Auto) (0.3-1.0) x10-3/uL Eos # (Auto) (0.0-0.8) x10-3/uL Baso # (Auto) (0.0-0.1) x10-3/uL Sodium (135-145) mmol/L Potassium (3.5-5.3) mmol/L Chloride (100-110) mmol/L Carbon Dioxide (21-32) mmol/L BUN (7-18) mg/dL Creatinine (0.55-1.02) mg/dL Est Cr Clr Drug Dosing mL/min Estimated GFR (MDRD) (>60) BUN/Creatinine Ratio (9-20) Glucose (80-116) mg/dL POC Glucose 273 H (80-116) mg/dL Calcium (8.6-10.2) mg/dL Ananth Results Last 24 Hours: Microbiology 08/03/21 01:33 Aerobic Blood Culture - Preliminary Blood - Venous NO GROWTH AFTER 1 DAY Anaerobic Blood Culture - Preliminary NO GROWTH AFTER 1 DAY 08/02/21 23:52 Aerobic Blood Culture - Preliminary Blood - Venous NO GROWTH AFTER 1 DAY Anaerobic Blood Culture - Preliminary NO GROWTH AFTER 1 DAY Med Orders - Current: Current Medications Acetaminophen (Acetaminophen 325 Mg Tab) 650 mg PO Q4H PRN PRN Reason: Pain (Mild 1-3)/fever Last Admin: 08/03/21 23:20 Dose: 650 mg Documented by: Albuterol (Albuterol 8 Gm Inhaler) 0 gm INH Q4H PRN PRN Reason: Wheezing Bupropion HCl (Bupropion 150 Mg Tab.Er) 150 mg PO DAILY [facility] Last Admin: 08/04/21 09:05 Dose: 150 mg Documented by: Ceftriaxone Sodium (Ceftriaxone 2 Gm Vial) 2 gm IVPUSH Q24H JERRY Last Admin: 08/04/21 09:05 Dose: 2 gm Documented by: Dextrose/Water (50% Dextrose In Water 50 Ml Syringe) 50 ml IVPUSH ASDIRECTED PRN PRN Reason: Hypoglycemia Docusate Sodium (Docusate Sodium 100 Mg Cap) 100 mg PO BID PRN PRN Reason: Constipation Enoxaparin Sodium (Enoxaparin 40 Mg/0.4 Ml Syringe) 40 mg SUBCUT Q24H [facility] Last Admin: 08/04/21 09:04 Dose: 40 mg Documented by: Fluconazole (Fluconazole 150 Mg Tab) 150 mg PO ONETIME ONE Stop: 08/06/21 09:01 Fluoxetine HCl (Fluoxetine 20 Mg Cap) 40 mg PO DAILY [facility] Last Admin: 08/04/21 09:05 Dose: 40 mg Documented by: Folic Acid (Folic Acid 1 Mg Tab) 1 mg PO DAILY [facility] Last Admin: 08/04/21 09:04 Dose: 1 mg Documented by: Glucagon (Glucagon,Human Recombinant 1 Mg Vial) 1 mg IM ASDIRECTED PRN PRN Reason: Hypoglycemia Hydromorphone HCl (Hydromorphone 2 Mg/Ml Sdv) 0.5 mg IVPUSH Q2H PRN PRN Reason: Pain (severe 7-10) Last Admin: 08/04/21 08:52 Dose: 0.5 mg Documented by: Doxycycline Hyclate 100 mg/ (Sodium Chloride) 100 mls @ 100 mls/hr IV Q12H [facility] Last Admin: 08/04/21 05:20 Dose: 100 mls/hr Documented by: Insulin Human Lispro (Insulin Lispro 100 Unit/Ml 3 Ml Kwikpen) 0 unit SUBCUT TI DMEALS [facility]; Protocol Last Admin: 08/04/21 12:05 Dose: 9 units Documented by: Ketorolac Tromethamine (Ketorolac 30 Mg/Ml Sdv) 30 mg IVPUSH Q6H [facility] Stop: 08/08/21 09:09 Last Admin: 08/04/21 09:06 Dose: 30 mg Documented by: Midodrine (Midodrine 5 Mg Tab) 5 mg PO TIDMEALS [facility] Last Admin: 08/04/21 12:10 Dose: Not Given Documented by: Ondansetron HCl (Ondansetron 4 Mg Tab.Dis) 4 mg PO Q4H PRN PRN Reason: Nausea Last Admin: 08/04/21 08:58 Dose: 4 mg Documented by: Oxycodone HCl (Oxycodone 5 Mg Tab) 5 mg PO Q6H PRN PRN Reason: Breakthrough Pain Last Admin: 08/04/21 10:53 Dose: 5 mg Documented by: Pramipexole Dihydrochloride (Pramipexole 1 Mg Tab) 1 mg PO BEDTIME [facility] Last Admin: 08/03/21 21:37 Dose: 1 mg Documented by: Rosuvastatin Calcium (Rosuvastatin 20 Mg Tab) 20 mg PO DAILY [facility] Last Admin: 08/04/21 09:04 Dose: 20 mg Documented by: Sodium Chloride (Sodium Chloride 0.9% 10 Ml Syringe) 10 ml FLUSH ASDIRECTED PRN PRN Reason: Keep Vein Open Last Admin: 08/04/21 09:00 Dose: 10 ml Documented by: Discontinued Medications Acetaminophen (Acetaminophen 500 Mg Tab) 1,000 mg PO ONETIME ONE Stop: 08/02/21 23:41 Last Admin: 08/02/21 23:30 Dose: 1,000 mg Documented by: Doxycycline Hyclate (Doxycycline 100 Mg Tab) 100 mg PO ONETIME ONE Stop: 08/03/21 06:01 Last Admin: 08/03/21 05:49 Dose: 100 mg Documented by: Enoxaparin Sodium (Enoxaparin 40 Mg/0.4 Ml Syringe) 40 mg SUBCUT Q24H [facility] Last Admin: 08/03/21 07:58 Dose: Not Given Documented by: Fluconazole (Fluconazole 150 Mg Tab) 150 mg PO ONETIME ONE Stop: 08/03/21 14:04 Last Admin: 08/03/21 16:32 Dose: 150 mg Documented by: Hydromorphone HCl (Hydromorphone 2 Mg/Ml Sdv) 0.5 mg IVPUSH ONETIME ONE Stop: 08/02/21 23:46 Last Admin: 08/03/21 01:50 Dose: 0.5 mg Documented by: Lactated Ringer's (Ringers, Lactated) 1,000 mls @ 999 mls/hr IV BOLUS ONE Stop: 08/03/21 01:22 Last Admin: 08/03/21 02:09 Dose: 999 mls/hr Documented by: Ampicillin Sodium/Sulbactam (Sodium 3 gm/ Sodium Chloride) 100 mls @ 100 mls/hr IV ONETIME ONE Stop: 08/03/21 03:34 Last Admin: 08/03/21 03:00 Dose: 100 mls/hr Documented by: Lactated Ringer's (Ringers, Lactated) 1,000 mls @ 150 mls/hr IV ASDIRECTED [facility] Last Admin: 08/03/21 03:39 Dose: 150 mls/hr Documented by: Doxycycline Hyclate 100 mg/ (Sodium Chloride) 100 mls @ 100 mls/hr IV Q12H [facility] Last Admin: 08/03/21 16:38 Dose: Not Given Documented by: Insulin Human Lispro (Insulin Lispro 100 Unit/Ml 3 Ml Kwikpen) 100 unit SUBCUT BEDTIME [facility] Insulin Human Lispro (Insulin Lispro 100 Unit/Ml 3 Ml Kwikpen) 130 unit SUBCUT ACLUNCH [facility] Insulin Human Lispro (Insulin Lispro 100 Unit/Ml 3 Ml Kwikpen) 240 unit SUBCUT DAILY [facility] Last Admin: 08/03/21 08:50 Dose: Not Given Documented by: Insulin Human Regular (Insulin Regular, Human 100 Units/Ml 3 Ml Vial) 40 unit SUBCUT ONETIME ONE Stop: 08/03/21 00:26 Last Admin: 08/03/21 01:56 Dose: 40 units Documented by: Insulin Human Regular (Insulin Regular, Human 100 Units/Ml 3 Ml Vial) 240 unit SUBCUT DAILY [facility] Iopamidol (Iopamidol 755 Mg/Ml 150 Ml Bottle) 150 ml IV ONETIME ONE Stop: 08/03/21 00:56 Last Admin: 08/03/21 02:11 Dose: 150 ml Documented by: Non-Formulary Medication (Insulin Regular, Human [Humulin R U-500 Kwikpen]) 240 unit SQ DAILY [facility] Ondansetron HCl (Ondansetron 4 Mg Tab.Dis) 4 mg PO Q6H PRN PRN Reason: nausea, able to take PO Last Admin: 08/03/21 06:12 Dose: 4 mg Documented by: Oxycodone HCl (Oxycodone 5 Mg Tab) 5 mg PO Q8H PRN PRN Reason: Breakthrough Pain Last Admin: 08/03/21 10:34 Dose: 5 mg Documented by: - Exam General: Alert, Oriented, Cooperative Lungs: Clear to Auscultation, Normal Respiratory Effort Cardiovascular: Regular Rate, Regular Rhythm GI/Abdominal Exam: Normal Bowel Sounds, Soft, Non-Tender, No Distention Extremities: No Pedal Edema Peripheral Pulses: 2+: Radial (L), Radial (R) Wound/Incisions: No Drainage, Erythema (erythema increased, 3 cm elevated area, fluctuant, area of buttock is more indurated, skin marked) - Patient Data Lab Results Last 24 hrs: Laboratory Results - last 24 hr 08/03/21 08/04/21 08/04/21 Range/Units 17:31 06:10 06:10 WBC 10.5 H (3.0-10.3) x10-3/uL RBC 3.57 L (3.60-5.20) x10(6)uL Hgb 9.9 L (11.4-15.5) g/dL Hct 29.2 L (34.2-48.2) % MCV 81.7 (76.7-100.5) fL MCH 27.9 (23.9-33.9) pg MCHC 34.1 (31.9-34.8) g/dL RDW 16.1 (12.3-16.5) % Plt Count 188 (151-488) x10(3)uL MPV 6.9 L (7.1-12.4) fL Neut % (Auto) 76.9 H (30.8-76.2) % Lymph % (Auto) 14.1 L (18.4-52.1) % [place] % (Auto) 7.6 (4.4-15.7) % Eos % (Auto) 0.8 (0.6-8.1) % Baso % (Auto) 0.6 (0.2-1.5) % Neut # (Auto) 8.1 H (1.5-6.3) x10-3/uL Lymph # (Auto) 1.5 (1.0-4.4) x10-3/uL [place] # (Auto) 0.8 (0.3-1.0) x10-3/uL Eos # (Auto) 0.1 (0.0-0.8) x10-3/uL Baso # (Auto) 0.1 (0.0-0.1) x10-3/uL Sodium 137 (135-145) mmol/L Potassium 3.9 (3.5-5.3) mmol/L Chloride 101 (100-110) mmol/L Carbon Dioxide 27 (21-32) mmol/L BUN 6 L (7-18) mg/dL Creatinine 0.8 (0.55-1.02) mg/dL Est Cr Clr Drug Dosing 74.67 mL/min Estimated GFR (MDRD) > 60 (>60) BUN/Creatinine Ratio 7.5 L (9-20) Glucose 284 H (80-116) mg/dL POC Glucose 255 H (80-116) mg/dL Calcium 8.8 (8.6-10.2) mg/dL 08/04/21 Range/Units 12:00 WBC (3.0-10.3) x10-3/uL RBC (3.60-5.20) x10(6)uL Hgb (11.4-15.5) g/dL Hct (34.2-48.2) % MCV (76.7-100.5) fL MCH (23.9-33.9) pg MCHC (31.9-34.8) g/dL RDW (12.3-16.5) % Plt Count (151-488) x10(3)uL MPV (7.1-12.4) fL Neut % (Auto) (30.8-76.2) % Lymph % (Auto) (18.4-52.1) % [place] % (Auto) (4.4-15.7) % Eos % (Auto) (0.6-8.1) % Baso % (Auto) (0.2-1.5) % Neut # (Auto) (1.5-6.3) x10-3/uL Lymph # (Auto) (1.0-4.4) x10-3/uL [place] # (Auto) (0.3-1.0) x10-3/uL Eos # (Auto) (0.0-0.8) x10-3/uL Baso # (Auto) (0.0-0.1) x10-3/uL Sodium (135-145) mmol/L Potassium (3.5-5.3) mmol/L Chloride (100-110) mmol/L Carbon Dioxide (21-32) mmol/L BUN (7-18) mg/dL Creatinine (0.55-1.02) mg/dL Est Cr Clr Drug Dosing mL/min Estimated GFR (MDRD) (>60) BUN/Creatinine Ratio (9-20) Glucose (80-116) mg/dL POC Glucose 273 H (80-116) mg/dL Calcium (8.6-10.2) mg/dL Result Diagrams: 08/04/21 06:10 08/04/21 06:10 Ananth Results Last 24 hrs: Microbiology 08/03/21 01:33 Aerobic Blood Culture - Preliminary Blood - Venous NO GROWTH AFTER 1 DAY Anaerobic Blood Culture - Preliminary NO GROWTH AFTER 1 DAY 08/02/21 23:52 Aerobic Blood Culture - Preliminary Blood - Venous NO GROWTH AFTER 1 DAY Anaerobic Blood Culture - Preliminary NO GROWTH AFTER 1 DAY Sepsis Event Note - Evaluation Sepsis Screening Result: No Definite Risk - Focused Exam Vital Signs: Vital Signs Temp Pulse Resp BP Pulse Ox 08/04/21 06:30 99 F 100 18 124/71 96 - Problem List & Annotations (1) Cellulitis of right buttock SNOMED Code(s): 90680788 Code(s): L03.317 - CELLULITIS OF BUTTOCK Status: Acute Current Visit: Yes (2) Yeast vaginitis SNOMED Code(s): 63773894 Code(s): B37.3 - CANDIDIASIS OF VULVA AND VAGINA Status: Acute Current Visit: Yes (3) Brittle diabetes mellitus SNOMED Code(s): 60736189 Code(s): E10.9 - TYPE 1 DIABETES MELLITUS WITHOUT COMPLICATIONS Status: Chronic Current Visit: Yes (4) Morbid obesity SNOMED Code(s): 855585234 Code(s): E66.01 - MORBID (SEVERE) OBESITY DUE TO EXCESS CALORIES Status: Chronic Current Visit: No - Problem List Review Problem List Initiated/Reviewed/Updated: Yes - My Orders Last 24 Hours: My Active Orders 08/03/21 14:20 oxyCODONE 5 mg PO Q6H PRN 08/03/21 18:00 Doxycycline [Vibramycin] 100 mg Sodium Chloride 0.9% [Normal Saline] 100 ml IV Q12H 08/04/21 14:30 Consult to Physician [CONS] Routine 08/04/21 14:32 Notify Provider Consults [RC] ASDIRECTED 08/06/21 09:00 Fluconazole [Diflucan] 150 mg PO ONETIME ONE - Plan Plan:: 1. Cellulitis: worsening, Rocephin 2g IV q24h, Doxycycline 100 mg IV q12h day 2; CBC, BMP tomorrow. CRP 23.[address] Gandhi, he will see tomorrow as he is at [facility]. Tylenol 650 mg q4h as needed, Toradol 30 mg IV q6h as needed; Oxycodone 5 mg q6h as needed, Dilaudid 0.5 mg IV as needed severe pain. 2. Yeast vaginitis: Fluconazole 150 mg day 1 and repeat day 4. 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 Lantus 15 units bedtime. 4. Discharge planning: afebrile for at least 24 hours, continue improvement of cellulitis and monitoring for abscess formation. Adjust treatments as necessary, 48-72 hours of IV antibiotics anticipated.
[2021-08-04] MEDS ORDERED: Sodium Chloride 0.9% 250 ML IV ONE (17:00)
[2021-08-04] MEDS: Acetaminophen 325 MG Tab PO PRN (17:06)
[2021-08-04] MEDS ORDERED: Sodium Chloride 0.9% 1,000 ML IV SCH (20:45)
[2021-08-04] MEDS ORDERED: Insulin Glargine,Human Rec. Analog 100 Units/ML 3 ML Pen SUBCUT SCH ×2 (21:00)
[2021-08-04] MEDS ORDERED: Insulin Glargine,Human Rec. Analog 100 Units/ML 3 ML Pen SUBCUT ONE (22:03)
[2021-08-05] MEDS: Ketorolac 30 MG/ML SDV IVPUSH SCH ×4 (03:13→20:51)
[2021-08-05] MEDS: Ondansetron 4 MG Tab.DIS PO PRN ×3 (05:56→15:27)
[2021-08-05] MEDS: Doxycycline 100 MG in Sodium Chloride 0.9% 100 ML IV SCH ×2 (07:15→17:52)
[2021-08-05] MEDS: Acetaminophen 325 MG Tab PO PRN (09:01)
[2021-08-05] MEDS: oxyCODONE 5 MG Tab PO PRN ×2 (09:02→15:27)
[2021-08-05] MEDS: Midodrine 5 MG Tab PO SCH ×3 (09:03→17:46)
[2021-08-05] MEDS: FLUoxetine 20 MG Cap PO SCH (09:04)
[2021-08-05] MEDS: Rosuvastatin 20 MG Tab PO SCH (09:04)
[2021-08-05] MEDS: buPROPion 150 MG Tab.ER PO SCH (09:04)
[2021-08-05] MEDS: Enoxaparin 40 MG/0.4 ML Syringe SUBCUT SCH (09:04)
[2021-08-05] MEDS: Folic Acid 1 MG Tab PO SCH (09:05)
[2021-08-05] MEDS: cefTRIAXone 2 GM Vial IVPUSH SCH (09:05)
[2021-08-05] MEDS: Insulin Lispro 100 Unit/ML 3 ML KwikPen SUBCUT SCH ×3 (09:12→17:53)
--- NOTE | 2021-08-05 10:45 | PCM.PN ---
- General Info Date of Service: 08/05/21 Subjective Update: Dr Gandhi did I&D on her right buttock this morning, he did get quite a bit of malodorous pus from elliptical incision, obtained wound culture and dressed, recommended follow up in clinic in 1 week as at risk for fistula formation. She states the pressure feeling is better today after I&D. IV currently in foot as lost antecubital one yesterday. WBC was up today. - Patient Data Vitals - Most Recent: Last Vital Signs Temp 100.4 F 08/05/21 09:01 Pulse 102 H 08/05/21 05:15 Resp 18 08/05/21 05:15 BP 120/75 08/05/21 05:15 Pulse Ox 95 08/05/21 05:15 Weight - Most Recent: 331 lb 14.4 oz I&O - Last 24 Hours: Intake & Output 08/04/21 08/05/21 08/05/21 22:59 06:59 14:59 Intake Total 350 625 Output Total 180 350 Balance 170 275 Lab Results Last 24 Hours: Laboratory Results - last 24 hr 08/04/21 08/04/21 08/05/21 Range/Units 12:00 18:02 06:40 WBC 11.6 H (3.0-10.3) x10-3/uL RBC 3.44 L (3.60-5.20) x10(6)uL Hgb 9.3 L (11.4-15.5) g/dL Hct 28.1 L (34.2-48.2) % MCV 81.7 (76.7-100.5) fL MCH 27.2 (23.9-33.9) pg MCHC 33.3 (31.9-34.8) g/dL RDW 16.1 (12.3-16.5) % Plt Count 206 (151-488) x10(3)uL MPV 6.8 L (7.1-12.4) fL Neut % (Auto) 75.3 (30.8-76.2) % Lymph % (Auto) 15.3 L (18.4-52.1) % [place] % (Auto) 8.3 (4.4-15.7) % Eos % (Auto) 0.7 (0.6-8.1) % Baso % (Auto) 0.4 (0.2-1.5) % Neut # (Auto) 8.7 H (1.5-6.3) x10-3/uL Lymph # (Auto) 1.8 (1.0-4.4) x10-3/uL [place] # (Auto) 1.0 (0.3-1.0) x10-3/uL Eos # (Auto) 0.1 (0.0-0.8) x10-3/uL Baso # (Auto) 0.0 (0.0-0.1) x10-3/uL Sodium (135-145) mmol/L Potassium (3.5-5.3) mmol/L Chloride (100-110) mmol/L Carbon Dioxide (21-32) mmol/L BUN (7-18) mg/dL Creatinine (0.55-1.02) mg/dL Est Cr Clr Drug Dosing mL/min Estimated GFR (MDRD) (>60) BUN/Creatinine Ratio (9-20) Glucose (80-116) mg/dL POC Glucose 273 H 294 H (80-116) mg/dL Calcium (8.6-10.2) mg/dL 08/05/21 Range/Units 06:40 WBC (3.0-10.3) x10-3/uL RBC (3.60-5.20) x10(6)uL Hgb (11.4-15.5) g/dL Hct (34.2-48.2) % MCV (76.7-100.5) fL MCH (23.9-33.9) pg MCHC (31.9-34.8) g/dL RDW (12.3-16.5) % Plt Count (151-488) x10(3)uL MPV (7.1-12.4) fL Neut % (Auto) (30.8-76.2) % Lymph % (Auto) (18.4-52.1) % [place] % (Auto) (4.4-15.7) % Eos % (Auto) (0.6-8.1) % Baso % (Auto) (0.2-1.5) % Neut # (Auto) (1.5-6.3) x10-3/uL Lymph # (Auto) (1.0-4.4) x10-3/uL [place] # (Auto) (0.3-1.0) x10-3/uL Eos # (Auto) (0.0-0.8) x10-3/uL Baso # (Auto) (0.0-0.1) x10-3/uL Sodium 136 (135-145) mmol/L Potassium 3.8 (3.5-5.3) mmol/L Chloride 100 (100-110) mmol/L Carbon Dioxide 27 (21-32) mmol/L BUN 6 L (7-18) mg/dL Creatinine 0.8 (0.55-1.02) mg/dL Est Cr Clr Drug Dosing 74.67 mL/min Estimated GFR (MDRD) > 60 (>60) BUN/Creatinine Ratio 7.5 L (9-20) Glucose 288 H (80-116) mg/dL POC Glucose (80-116) mg/dL Calcium 8.7 (8.6-10.2) mg/dL Ananth Results Last 24 Hours: Microbiology 08/03/21 01:33 Aerobic Blood Culture - Preliminary Blood - Venous NO GROWTH AFTER 2 DAYS Anaerobic Blood Culture - Preliminary NO GROWTH AFTER 2 DAYS 08/02/21 23:52 Aerobic Blood Culture - Preliminary Blood - Venous NO GROWTH AFTER 2 DAYS Anaerobic Blood Culture - Preliminary NO GROWTH AFTER 2 DAYS Med Orders - Current: Current Medications Acetaminophen (Acetaminophen 325 Mg Tab) 650 mg PO Q4H PRN PRN Reason: Pain (Mild 1-3)/fever Last Admin: 08/05/21 09:01 Dose: 650 mg Documented by: Albuterol (Albuterol 8 Gm Inhaler) 0 gm INH Q4H PRN PRN Reason: Wheezing Bupropion HCl (Bupropion 150 Mg Tab.Er) 150 mg PO DAILY [facility] Last Admin: 08/05/21 09:04 Dose: 150 mg Documented by: Ceftriaxone Sodium (Ceftriaxone 2 Gm Vial) 2 gm IVPUSH Q24H [facility] Last Admin: 08/05/21 09:05 Dose: 2 gm Documented by: Dextrose/Water (50% Dextrose In Water 50 Ml Syringe) 50 ml IVPUSH ASDIRECTED PRN PRN Reason: Hypoglycemia Docusate Sodium (Docusate Sodium 100 Mg Cap) 100 mg PO BID PRN PRN Reason: Constipation Enoxaparin Sodium (Enoxaparin 40 Mg/0.4 Ml Syringe) 40 mg SUBCUT Q24H [facility] Last Admin: 08/05/21 09:04 Dose: 40 mg Documented by: Fluconazole (Fluconazole 150 Mg Tab) 150 mg PO ONETIME ONE Stop: 08/06/21 09:01 Fluoxetine HCl (Fluoxetine 20 Mg Cap) 40 mg PO DAILY [facility] Last Admin: 08/05/21 09:04 Dose: 40 mg Documented by: Folic Acid (Folic Acid 1 Mg Tab) 1 mg PO DAILY [facility] Last Admin: 08/05/21 09:05 Dose: 1 mg Documented by: Glucagon (Glucagon,Human Recombinant 1 Mg Vial) 1 mg IM ASDIRECTED PRN PRN Reason: Hypoglycemia Hydromorphone HCl (Hydromorphone 2 Mg/Ml Sdv) 0.5 mg IVPUSH Q2H PRN PRN Reason: Pain (severe 7-10) Last Admin: 08/04/21 14:40 Dose: 0.5 mg Documented by: Doxycycline Hyclate 100 mg/ (Sodium Chloride) 100 mls @ 100 mls/hr IV Q12H [facility] Last Admin: 08/05/21 07:15 Dose: 100 mls/hr Documented by: Sodium Chloride (Normal Saline) 1,000 mls @ 30 mls/hr IV ASDIRECTED [facility] Last Admin: 08/04/21 22:12 Dose: 30 mls/hr Documented by: Insulin Glargine (Insulin Glargine,Human Rec. Analog 100 Units/Ml 3 Ml Pen) 15 units SUBCUT BEDTIME [facility] Last Admin: 08/04/21 22:04 Dose: 15 units Documented by: Insulin Human Lispro (Insulin Lispro 100 Unit/Ml 3 Ml Kwikpen) 0 unit SUBCUT TIDMEALS [facility]; Protocol Last Admin: 08/05/21 09:12 Dose: 9 units Documented by: Ketorolac Tromethamine (Ketorolac 30 Mg/Ml Sdv) 30 mg IVPUSH Q6H [facility] Stop: 08/08/21 09:09 Last Admin: 08/05/21 09:05 Dose: 30 mg Documented by: Midodrine (Midodrine 5 Mg Tab) 5 mg PO TIDMEALS [facility] Last Admin: 08/05/21 09:03 Dose: Not Given Documented by: Ondansetron HCl (Ondansetron 4 Mg Tab.Dis) 4 mg PO Q4H PRN PRN Reason: Nausea Last Admin: 08/05/21 09:43 Dose: 4 mg Documented by: Oxycodone HCl (Oxycodone 5 Mg Tab) 5 mg PO Q6H PRN PRN Reason: Breakthrough Pain Last Admin: 08/05/21 09:02 Dose: 5 mg Documented by: Pramipexole Dihydrochloride (Pramipexole 1 Mg Tab) 1 mg PO BEDTIME [facility] Last Admin: 08/04/21 21:56 Dose: 1 mg Documented by: Rosuvastatin Calcium (Rosuvastatin 20 Mg Tab) 20 mg PO DAILY [facility] Last Admin: 08/05/21 09:04 Dose: 20 mg Documented by: Sodium Chloride (Sodium Chloride 0.9% 10 Ml Syringe) 10 ml FLUSH ASDIRECTED PRN PRN Reason: Keep Vein Open Last Admin: 08/04/21 17:00 Dose: 10 ml Documented by: Discontinued Medications Acetaminophen (Acetaminophen 500 Mg Tab) 1,000 mg PO ONETIME ONE Stop: 08/02/21 23:41 Last Admin: 08/02/21 23:30 Dose: 1,000 mg Documented by: Doxycycline Hyclate (Doxycycline 100 Mg Tab) 100 mg PO ONETIME ONE Stop: 08/03/21 06:01 Last Admin: 08/03/21 05:49 Dose: 100 mg Documented by: Enoxaparin Sodium (Enoxaparin 40 Mg/0.4 Ml Syringe) 40 mg SUBCUT Q24H [facility] Last Admin: 08/03/21 07:58 Dose: Not Given Documented by: Fluconazole (Fluconazole 150 Mg Tab) 150 mg PO ONETIME ONE Stop: 08/03/21 14:04 Last Admin: 08/03/21 16:32 Dose: 150 mg Documented by: Hydromorphone HCl (Hydromorphone 2 Mg/Ml Sdv) 0.5 mg IVPUSH ONETIME ONE Stop: 08/02/21 23:46 Last Admin: 08/03/21 01:50 Dose: 0.5 mg Documented by: Lactated Ringer's (Ringers, Lactated) 1,000 mls @ 999 mls/hr IV BOLUS ONE Stop: 08/03/21 01:22 Last Admin: 08/03/21 02:09 Dose: 999 mls/hr Documented by: Ampicillin Sodium/Sulbactam (Sodium 3 gm/ Sodium Chloride) 100 mls @ 100 mls/hr IV ONETIME ONE Stop: 08/03/21 03:34 Last Admin: 08/03/21 03:00 Dose: 100 mls/hr Documented by: Lactated Ringer's (Ringers, Lactated) 1,000 mls @ 150 mls/hr IV ASDIRECTED [facility] Last Admin: 08/03/21 03:39 Dose: 150 mls/hr Documented by: Doxycycline Hyclate 100 mg/ (Sodium Chloride) 100 mls @ 100 mls/hr IV Q12H [facility] Last Admin: 08/03/21 16:38 Dose: Not Given Documented by: Sodium Chloride (Normal Saline) 250 mls @ 30 mls/hr IV ONETIME ONE Stop: 08/05/21 01:19 Last Admin: 08/04/21 17:00 Dose: 30 mls/hr Documented by: Insulin Glargine (Insulin Glargine,Human Rec. Analog 100 Units/Ml 3 Ml Pen) 15 units SUBCUT BEDTIME [facility] Insulin Human Lispro (Insulin Lispro 100 Unit/Ml 3 Ml Kwikpen) 100 unit SUBCUT BEDTIME [facility] Insulin Human Lispro (Insulin Lispro 100 Unit/Ml 3 Ml Kwikpen) 130 unit SUBCUT ACLUNCH [facility] Insulin Human Lispro (Insulin Lispro 100 Unit/Ml 3 Ml Kwikpen) 240 unit SUBCUT DAILY [facility] Last Admin: 08/03/21 08:50 Dose: Not Given Documented by: Insulin Human Regular (Insulin Regular, Human 100 Units/Ml 3 Ml Vial) 40 unit SUBCUT ONETIME ONE Stop: 08/03/21 00:26 Last Admin: 08/03/21 01:56 Dose: 40 units Documented by: Insulin Human Regular (Insulin Regular, Human 100 Units/Ml 3 Ml Vial) 240 unit SUBCUT DAILY [facility] Iopamidol (Iopamidol 755 Mg/Ml 150 Ml Bottle) 150 ml IV ONETIME ONE Stop: 08/03/21 00:56 Last Admin: 08/03/21 02:11 Dose: 150 ml Documented by: Non-Formulary Medication (Insulin Regular, Human [Humulin R U-500 Kwikpen]) 240 unit SQ DAILY [facility] Ondansetron HCl (Ondansetron 4 Mg Tab.Dis) 4 mg PO Q6H PRN PRN Reason: nausea, able to take PO Last Admin: 08/03/21 06:12 Dose: 4 mg Documented by: Oxycodone HCl (Oxycodone 5 Mg Tab) 5 mg PO Q8H PRN PRN Reason: Breakthrough Pain Last Admin: 08/03/21 10:34 Dose: 5 mg Documented by: - Exam General: Alert, Oriented, Cooperative, No Acute Distress Lungs: Clear to Auscultation, Normal Respiratory Effort Cardiovascular: Regular Rate, Regular Rhythm GI/Abdominal Exam: Normal Bowel Sounds, Soft, Non-Tender, No Distention (Female) Exam: Other (dressing to right buttock) Peripheral Pulses: 2+: Radial (L), Radial (R) - Patient Data Lab Results Last 24 hrs: Laboratory Results - last 24 hr 08/04/21 08/04/21 08/05/21 Range/Units 12:00 18:02 06:40 WBC 11.6 H (3.0-10.3) x10-3/uL RBC 3.44 L (3.60-5.20) x10(6)uL Hgb 9.3 L (11.4-15.5) g/dL Hct 28.1 L (34.2-48.2) % MCV 81.7 (76.7-100.5) fL MCH 27.2 (23.9-33.9) pg MCHC 33.3 (31.9-34.8) g/dL RDW 16.1 (12.3-16.5) % Plt Count 206 (151-488) x10(3)uL MPV 6.8 L (7.1-12.4) fL Neut % (Auto) 75.3 (30.8-76.2) % Lymph % (Auto) 15.3 L (18.4-52.1) % [place] % (Auto) 8.3 (4.4-15.7) % Eos % (Auto) 0.7 (0.6-8.1) % Baso % (Auto) 0.4 (0.2-1.5) % Neut # (Auto) 8.7 H (1.5-6.3) x10-3/uL Lymph # (Auto) 1.8 (1.0-4.4) x10-3/uL [place] # (Auto) 1.0 (0.3-1.0) x10-3/uL Eos # (Auto) 0.1 (0.0-0.8) x10-3/uL Baso # (Auto) 0.0 (0.0-0.1) x10-3/uL Sodium (135-145) mmol/L Potassium (3.5-5.3) mmol/L Chloride (100-110) mmol/L Carbon Dioxide (21-32) mmol/L BUN (7-18) mg/dL Creatinine (0.55-1.02) mg/dL Est Cr Clr Drug Dosing mL/min Estimated GFR (MDRD) (>60) BUN/Creatinine Ratio (9-20) Glucose (80-116) mg/dL POC Glucose 273 H 294 H (80-116) mg/dL Calcium (8.6-10.2) mg/dL 08/05/21 Range/Units 06:40 WBC (3.0-10.3) x10-3/uL RBC (3.60-5.20) x10(6)uL Hgb (11.4-15.5) g/dL Hct (34.2-48.2) % MCV (76.7-100.5) fL MCH (23.9-33.9) pg MCHC (31.9-34.8) g/dL RDW (12.3-16.5) % Plt Count (151-488) x10(3)uL MPV (7.1-12.4) fL Neut % (Auto) (30.8-76.2) % Lymph % (Auto) (18.4-52.1) % [place] % (Auto) (4.4-15.7) % Eos % (Auto) (0.6-8.1) % Baso % (Auto) (0.2-1.5) % Neut # (Auto) (1.5-6.3) x10-3/uL Lymph # (Auto) (1.0-4.4) x10-3/uL [place] # (Auto) (0.3-1.0) x10-3/uL Eos # (Auto) (0.0-0.8) x10-3/uL Baso # (Auto) (0.0-0.1) x10-3/uL Sodium 136 (135-145) mmol/L Potassium 3.8 (3.5-5.3) mmol/L Chloride 100 (100-110) mmol/L Carbon Dioxide 27 (21-32) mmol/L BUN 6 L (7-18) mg/dL Creatinine 0.8 (0.55-1.02) mg/dL Est Cr Clr Drug Dosing 74.67 mL/min Estimated GFR (MDRD) > 60 (>60) BUN/Creatinine Ratio 7.5 L (9-20) Glucose 288 H (80-116) mg/dL POC Glucose (80-116) mg/dL Calcium 8.7 (8.6-10.2) mg/dL Result Diagrams: 08/05/21 06:40 08/05/21 06:40 Ananth Results Last 24 hrs: Microbiology 08/03/21 01:33 Aerobic Blood Culture - Preliminary Blood - Venous NO GROWTH AFTER 2 DAYS Anaerobic Blood Culture - Preliminary NO GROWTH AFTER 2 DAYS 08/02/21 23:52 Aerobic Blood Culture - Preliminary Blood - Venous NO GROWTH AFTER 2 DAYS Anaerobic Blood Culture - Preliminary NO GROWTH AFTER 2 DAYS Sepsis Event Note - Evaluation Sepsis Screening Result: No Definite Risk - Focused Exam Vital Signs: Vital Signs Temp Temp Pulse Resp BP Pulse Ox 08/05/21 09:01 100.4 F 08/05/21 05:15 98.8 F 102 H 18 120/75 95 08/05/21 03:00 98.9 F 104 H 18 109/64 96 - Problem List & Annotations (1) Cellulitis of right buttock SNOMED Code(s): 20835422 Code(s): L03.317 - CELLULITIS OF BUTTOCK Status: Acute Current Visit: Yes (2) Yeast vaginitis SNOMED Code(s): 95342095 Code(s): B37.3 - CANDIDIASIS OF VULVA AND VAGINA Status: Acute Current Visit: Yes (3) Brittle diabetes mellitus SNOMED Code(s): 98594846 Code(s): E10.9 - TYPE 1 DIABETES MELLITUS WITHOUT COMPLICATIONS Status: Chronic Current Visit: Yes (4) Morbid obesity SNOMED Code(s): 573935436 Code(s): E66.01 - MORBID (SEVERE) OBESITY DUE TO EXCESS CALORIES Status: Chronic Current Visit: No - Problem List Review Problem List Initiated/Reviewed/Updated: Yes - My Orders Last 24 Hours: My Active Orders 08/04/21 14:30 Consult to Physician [CONS] Routine 08/04/21 14:32 Notify Provider Consults [RC] ASDIRECTED 08/04/21 20:45 Sodium Chloride 0.9% [Normal Saline] 1,000 ml IV ASDIRECTED 08/04/21 21:00 Insulin Glarg,Human.Rec.Analog [LantUS Solostar] 15 units SUBCUT BEDTIME 08/05/21 08:30 CULTURE ANAEROBIC + SMEAR [RM] Routine CULTURE ROUTINE + SMEAR [RM] Routine 08/06/21 06:00 CBC WITH AUTO DIFF [HEME] Routine CRP [C-REACTIVE PROTEIN] [CHEM] Routine 08/06/21 09:00 Fluconazole [Diflucan] 150 mg PO ONETIME ONE - Plan Plan:: 1. Cellulitis: WBC 11.6, Rocephin 2g IV q24h, Doxycycline 100 mg IV q12h day 3; CBC, CRP tomorrow. CRP 23.[address] Gandhi did I&D this morning, wound cultures sent out, should have back in 48 hours. Tylenol 650 mg q4h as needed, Toradol 30 mg IV q6h as needed; Oxycodone 5 mg q6h as needed, Dilaudid 0.5 mg IV as needed severe pain. 2. Yeast vaginitis: Fluconazole 150 mg day 1 and repeat day 4. 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 4. Discharge planning: I&D today, will have sensitivities in 48 hours, will keep on IV as long as we have IV, if it goes and she continues to improve then will switch to orals.
--- NOTE | 2021-08-05 13:58 | OR ---
DATE OF OPERATION: 08/05/2021 SURGEON: Bryce Gandhi MD INDICATIONS: This patient is seen for evaluation of right buttock pain and swelling of 5 days. She was hospitalized 3 days ago for this and has been on IV antibiotics and pain and redness have progressed. CT scan on admission shows cellulitis with no obvious abscess. Her white blood cell count continues to slowly rise and is 11 today. On exam, she does have fluctuance on her right buttock with some surrounding erythema for up to 10 cm. This is consistent with an abscess and recommended an incision and drainage be performed. DESCRIPTION OF PROCEDURE: This area was prepped with Betadine and draped sterilely. 1% lidocaine with epinephrine was used for local anesthesia. An elliptical skin incision was made over the most fluctuant area and a large amount of foul-smelling pus under pressure came out. I estimate this to be approximately 40 mL. This will be sent for culture. The wound was gently probed and no loculated areas were present. A gauze dressing was applied. The patient tolerated this well. I spoke with Dr. Reese and we will have her follow up with me in clinic next week after discharge. /[id number] MORALES/DEEPTI
[2021-08-05] MEDS: Sodium Chloride 0.9% 10 ML Syringe FLUSH PRN (15:20)
[2021-08-05] MEDS ORDERED: Insulin Glargine,Human Rec. Analog 100 Units/ML 3 ML Pen SUBCUT SCH (21:00)
[2021-08-06] MEDS: oxyCODONE 5 MG Tab PO PRN ×3 (01:02→17:20)
[2021-08-06] MEDS: Ketorolac 30 MG/ML SDV IVPUSH SCH ×2 (03:12→10:20)
[2021-08-06] MEDS: Doxycycline 100 MG in Sodium Chloride 0.9% 100 ML IV SCH (05:50)
[2021-08-06] MEDS: HYDROmorphone 2 MG/ML SDV IVPUSH PRN (06:27)
[2021-08-06] MEDS: Insulin Lispro 100 Unit/ML 3 ML KwikPen SUBCUT SCH ×3 (08:24→17:11)
[2021-08-06] MEDS: Midodrine 5 MG Tab PO SCH ×3 (08:35→17:10)
[2021-08-06] MEDS: FLUoxetine 20 MG Cap PO SCH (08:35)
[2021-08-06] MEDS: buPROPion 150 MG Tab.ER PO SCH (08:35)
[2021-08-06] MEDS: Rosuvastatin 20 MG Tab PO SCH (08:35)
[2021-08-06] MEDS: Folic Acid 1 MG Tab PO SCH (08:36)
[2021-08-06] MEDS: Enoxaparin 40 MG/0.4 ML Syringe SUBCUT SCH (08:40)
[2021-08-06] MEDS ORDERED: Fluconazole 150 MG Tab PO ONE (09:00)
[2021-08-06] MEDS: cefTRIAXone 2 GM Vial IVPUSH SCH ×2 (09:18→10:19)
[2021-08-06] MEDS: cefTRIAXone 1 GM Vial IM SCH (10:06)
[2021-08-06] MEDS: Ketorolac 30 MG/ML SDV IM PRN ×2 (11:53→21:03)
--- NOTE | 2021-08-06 14:12 | PCM.PN ---
- General Info Date of Service: 08/06/21 Subjective Update: States pain is better, has not had to use Dilaudid. No fevers. Still having drainage out of incision. Urinating, tolerating diet and ambulating. Had 2 stools yesterday, 1 formed and 1 mushy. - Patient Data Vitals - Most Recent: Last Vital Signs Temp 97.9 F 08/06/21 08:00 Pulse 75 08/06/21 08:00 Resp 16 08/06/21 08:00 BP 105/71 08/06/21 08:00 Pulse Ox 95 08/06/21 08:00 Weight - Most Recent: 331 lb 3.2 oz I&O - Last 24 Hours: Intake & Output 08/05/21 08/06/21 08/06/21 22:59 06:59 14:59 Intake Total 600 480 165 Output Total 300 300 Balance 300 180 165 Lab Results Last 24 Hours: Laboratory Results - last 24 hr 08/05/21 08/05/21 08/06/21 Range/Units 17:40 21:06 06:15 WBC 9.8 (3.0-10.3) x10-3/uL RBC 3.41 L (3.60-5.20) x10(6)uL Hgb 9.5 L (11.4-15.5) g/dL Hct 28.1 L (34.2-48.2) % MCV 82.5 (76.7-100.5) fL MCH 28.0 (23.9-33.9) pg MCHC 33.9 (31.9-34.8) g/dL RDW 16.3 (12.3-16.5) % Plt Count 225 (151-488) x10(3)uL MPV 6.8 L (7.1-12.4) fL Neut % (Auto) 69.9 (30.8-76.2) % Lymph % (Auto) 19.9 (18.4-52.1) % [place] % (Auto) 7.9 (4.4-15.7) % Eos % (Auto) 1.9 (0.6-8.1) % Baso % (Auto) 0.4 (0.2-1.5) % Neut # (Auto) 6.8 H (1.5-6.3) x10-3/uL Lymph # (Auto) 1.9 (1.0-4.4) x10-3/uL [place] # (Auto) 0.8 (0.3-1.0) x10-3/uL Eos # (Auto) 0.2 (0.0-0.8) x10-3/uL Baso # (Auto) 0.0 (0.0-0.1) x10-3/uL POC Glucose 249 H 274 H (80-116) mg/dL C-Reactive Protein (0.5-0.9) mg/dL 08/06/21 08/06/21 Range/Units 06:15 06:23 WBC (3.0-10.3) x10-3/uL RBC (3.60-5.20) x10(6)uL Hgb (11.4-15.5) g/dL Hct (34.2-48.2) % MCV (76.7-100.5) fL MCH (23.9-33.9) pg MCHC (31.9-34.8) g/dL RDW (12.3-16.5) % Plt Count (151-488) x10(3)uL MPV (7.1-12.4) fL Neut % (Auto) (30.8-76.2) % Lymph % (Auto) (18.4-52.1) % [place] % (Auto) (4.4-15.7) % Eos % (Auto) (0.6-8.1) % Baso % (Auto) (0.2-1.5) % Neut # (Auto) (1.5-6.3) x10-3/uL Lymph # (Auto) (1.0-4.4) x10-3/uL [place] # (Auto) (0.3-1.0) x10-3/uL Eos # (Auto) (0.0-0.8) x10-3/uL Baso # (Auto) (0.0-0.1) x10-3/uL POC Glucose 245 H (80-116) mg/dL C-Reactive Protein 28.1 H* (0.5-0.9) mg/dL Ananth Results Last 24 Hours: Microbiology 08/03/21 01:33 Aerobic Blood Culture - Preliminary Blood - Venous NO GROWTH AFTER 3 DAYS Anaerobic Blood Culture - Preliminary NO GROWTH AFTER 3 DAYS 08/02/21 23:52 Aerobic Blood Culture - Preliminary Blood - Venous NO GROWTH AFTER 3 DAYS Anaerobic Blood Culture - Preliminary NO GROWTH AFTER 3 DAYS Med Orders - Current: Current Medications Acetaminophen (Acetaminophen 325 Mg Tab) 650 mg PO Q4H PRN PRN Reason: Pain (Mild 1-3)/fever Last Admin: 08/05/21 09:01 Dose: 650 mg Documented by: Albuterol (Albuterol 8 Gm Inhaler) 0 gm INH Q4H PRN PRN Reason: Wheezing Bupropion HCl (Bupropion 150 Mg Tab.Er) 150 mg PO DAILY [facility] Last Admin: 08/06/21 08:35 Dose: 150 mg Documented by: Ceftriaxone Sodium (Ceftriaxone 1 Gm Vial) 2 gm IM Q24H [facility] Last Admin: 08/06/21 10:06 Dose: 2 gm Documented by: Dextrose/Water (50% Dextrose In Water 50 Ml Syringe) 50 ml IVPUSH ASDIRECTED PRN PRN Reason: Hypoglycemia Docusate Sodium (Docusate Sodium 100 Mg Cap) 100 mg PO BID PRN PRN Reason: Constipation Doxycycline Hyclate (Doxycycline 100 Mg Tab) 100 mg PO BID [facility] Enoxaparin Sodium (Enoxaparin 40 Mg/0.4 Ml Syringe) 40 mg SUBCUT Q24H [facility] Last Admin: 08/06/21 08:40 Dose: 40 mg Documented by: Fluoxetine HCl (Fluoxetine 20 Mg Cap) 40 mg PO DAILY [facility] Last Admin: 08/06/21 08:35 Dose: 40 mg Documented by: Folic Acid (Folic Acid 1 Mg Tab) 1 mg PO DAILY [facility] Last Admin: 08/06/21 08:36 Dose: 1 mg Documented by: Glucagon (Glucagon,Human Recombinant 1 Mg Vial) 1 mg IM ASDIRECTED PRN PRN Reason: Hypoglycemia Hydromorphone HCl (Hydromorphone 2 Mg/Ml Sdv) 0.5 mg IVPUSH Q2H PRN PRN Reason: Pain (severe 7-10) Last Admin: 08/06/21 06:27 Dose: 0.5 mg Documented by: Sodium Chloride (Normal Saline) 1,000 mls @ 30 mls/hr IV ASDIRECTED [facility] Last Admin: 08/04/21 22:12 Dose: 30 mls/hr Documented by: Insulin Glargine (Insulin Glargine,Human Rec. Analog 100 Units/Ml 3 Ml Pen) 30 units SUBCUT BEDTIME [facility] Insulin Human Lispro (Insulin Lispro 100 Unit/Ml 3 Ml Kwikpen) 0 unit SUBCUT TIDMEALS [facility]; Protocol Last Admin: 08/06/21 11:43 Dose: 9 units Documented by: Ketorolac Tromethamine (Ketorolac 30 Mg/Ml Sdv) 30 mg IM Q6H PRN PRN Reason: Pain Stop: 08/08/21 09:09 Last Admin: 08/06/21 11:53 Dose: 30 mg Documented by: Midodrine (Midodrine 5 Mg Tab) 5 mg PO TIDMEALS [facility] Last Admin: 08/06/21 11:53 Dose: Not Given Documented by: Ondansetron HCl (Ondansetron 4 Mg Tab.Dis) 4 mg PO Q4H PRN PRN Reason: Nausea Last Admin: 08/05/21 15:27 Dose: 4 mg Documented by: Oxycodone HCl (Oxycodone 5 Mg Tab) 5 mg PO Q6H PRN PRN Reason: Breakthrough Pain Last Admin: 08/06/21 08:34 Dose: 5 mg Documented by: Pramipexole Dihydrochloride (Pramipexole 1 Mg Tab) 1 mg PO BEDTIME [facility] Last Admin: 08/05/21 20:51 Dose: 1 mg Documented by: Rosuvastatin Calcium (Rosuvastatin 20 Mg Tab) 20 mg PO DAILY [facility] Last Admin: 08/06/21 08:35 Dose: 20 mg Documented by: Sodium Chloride (Sodium Chloride 0.9% 10 Ml Syringe) 10 ml FLUSH ASDIRECTED PRN PRN Reason: Keep Vein Open Last Admin: 08/05/21 15:20 Dose: 10 ml Documented by: Discontinued Medications Acetaminophen (Acetaminophen 500 Mg Tab) 1,000 mg PO ONETIME ONE Stop: 08/02/21 23:41 Last Admin: 08/02/21 23:30 Dose: 1,000 mg Documented by: Ceftriaxone Sodium (Ceftriaxone 2 Gm Vial) 2 gm IVPUSH Q24H [facility] Last Admin: 08/06/21 10:19 Dose: Not Given Documented by: Doxycycline Hyclate (Doxycycline 100 Mg Tab) 100 mg PO ONETIME ONE Stop: 08/03/21 06:01 Last Admin: 08/03/21 05:49 Dose: 100 mg Documented by: Enoxaparin Sodium (Enoxaparin 40 Mg/0.4 Ml Syringe) 40 mg SUBCUT Q24H [facility] Last Admin: 08/03/21 07:58 Dose: Not Given Documented by: Fluconazole (Fluconazole 150 Mg Tab) 150 mg PO ONETIME ONE Stop: 08/03/21 14:04 Last Admin: 08/03/21 16:32 Dose: 150 mg Documented by: Fluconazole (Fluconazole 150 Mg Tab) 150 mg PO ONETIME ONE Stop: 08/06/21 09:01 Last Admin: 08/06/21 08:39 Dose: 150 mg Documented by: Hydromorphone HCl (Hydromorphone 2 Mg/Ml Sdv) 0.5 mg IVPUSH ONETIME ONE Stop: 08/02/21 23:46 Last Admin: 08/03/21 01:50 Dose: 0.5 mg Documented by: Lactated Ringer's (Ringers, Lactated) 1,000 mls @ 999 mls/hr IV BOLUS ONE Stop: 08/03/21 01:22 Last Admin: 08/03/21 02:09 Dose: 999 mls/hr Documented by: Ampicillin Sodium/Sulbactam (Sodium 3 gm/ Sodium Chloride) 100 mls @ 100 mls/hr IV ONETIME ONE Stop: 08/03/21 03:34 Last Admin: 08/03/21 03:00 Dose: 100 mls/hr Documented by: Lactated Ringer's (Ringers, Lactated) 1,000 mls @ 150 mls/hr IV ASDIRECTED [facility] Last Admin: 08/03/21 03:39 Dose: 150 mls/hr Documented by: Doxycycline Hyclate 100 mg/ (Sodium Chloride) 100 mls @ 100 mls/hr IV Q12H [facility] Last Admin: 08/03/21 16:38 Dose: Not Given Documented by: Doxycycline Hyclate 100 mg/ (Sodium Chloride) 100 mls @ 100 mls/hr IV Q12H [facility] Last Admin: 08/06/21 05:50 Dose: 100 mls/hr Documented by: Sodium Chloride (Normal Saline) 250 mls @ 30 mls/hr IV ONETIME ONE Stop: 08/05/21 01:19 Last Admin: 08/04/21 17:00 Dose: 30 mls/hr Documented by: Insulin Glargine (Insulin Glargine,Human Rec. Analog 100 Units/Ml 3 Ml Pen) 15 units SUBCUT BEDTIME [facility] Insulin Glargine (Insulin Glargine,Human Rec. Analog 100 Units/Ml 3 Ml Pen) 15 units SUBCUT BEDTIME JERR[facility] Last Admin: 08/04/21 22:04 Dose: 15 units Documented by: Insulin Glargine (Insulin Glargine,Human Rec. Analog 100 Units/Ml 3 Ml Pen) 20 units SUBCUT BEDTIME [facility] Last Admin: 08/05/21 21:07 Dose: 20 units Documented by: Insulin Human Lispro (Insulin Lispro 100 Unit/Ml 3 Ml Kwikpen) 100 unit SUBCUT BEDTIME [facility] Insulin Human Lispro (Insulin Lispro 100 Unit/Ml 3 Ml Kwikpen) 130 unit SUBCUT ACLUNCH JERRY Insulin Human Lispro (Insulin Lispro 100 Unit/Ml 3 Ml Kwikpen) 240 unit SUBCUT DAILY [facility] Last Admin: 08/03/21 08:50 Dose: Not Given Documented by: Insulin Human Regular (Insulin Regular, Human 100 Units/Ml 3 Ml Vial) 40 unit SUBCUT ONETIME ONE Stop: 08/03/21 00:26 Last Admin: 08/03/21 01:56 Dose: 40 units Documented by: Insulin Human Regular (Insulin Regular, Human 100 Units/Ml 3 Ml Vial) 240 unit SUBCUT DAILY [facility] Iopamidol (Iopamidol 755 Mg/Ml 150 Ml Bottle) 150 ml IV ONETIME ONE Stop: 08/03/21 00:56 Last Admin: 08/03/21 02:11 Dose: 150 ml Documented by: Ketorolac Tromethamine (Ketorolac 30 Mg/Ml Sdv) 30 mg IVPUSH Q6H [facility] Stop: 08/08/21 09:09 Last Admin: 08/06/21 10:20 Dose: Not Given Documented by: Non-Formulary Medication (Insulin Regular, Human [Humulin R U-500 Kwikpen]) 240 unit SQ DAILY [facility] Ondansetron HCl (Ondansetron 4 Mg Tab.Dis) 4 mg PO Q6H PRN PRN Reason: nausea, able to take PO Last Admin: 08/03/21 06:12 Dose: 4 mg Documented by: Oxycodone HCl (Oxycodone 5 Mg Tab) 5 mg PO Q8H PRN PRN Reason: Breakthrough Pain Last Admin: 08/03/21 10:34 Dose: 5 mg Documented by: - Exam General: Alert, Oriented, Cooperative, No Acute Distress Lungs: Clear to Auscultation, Normal Respiratory Effort Cardiovascular: Regular Rate, Regular Rhythm GI/Abdominal Exam: Normal Bowel Sounds, Soft, Non-Tender, No Distention Peripheral Pulses: 2+: Radial (L), Radial (R) Wound/Incisions: Drainage, Erythema Improving, Other (Tunnel at 3:00, close to 2 cm deep. Induration improving. ) - Patient Data Lab Results Last 24 hrs: Laboratory Results - last 24 hr 08/05/21 08/05/21 08/06/21 Range/Units 17:40 21:06 06:15 WBC 9.8 (3.0-10.3) x10-3/uL RBC 3.41 L (3.60-5.20) x10(6)uL Hgb 9.5 L (11.4-15.5) g/dL Hct 28.1 L (34.2-48.2) % MCV 82.5 (76.7-100.5) fL MCH 28.0 (23.9-33.9) pg MCHC 33.9 (31.9-34.8) g/dL RDW 16.3 (12.3-16.5) % Plt Count 225 (151-488) x10(3)uL MPV 6.8 L (7.1-12.4) fL Neut % (Auto) 69.9 (30.8-76.2) % Lymph % (Auto) 19.9 (18.4-52.1) % [place] % (Auto) 7.9 (4.4-15.7) % Eos % (Auto) 1.9 (0.6-8.1) % Baso % (Auto) 0.4 (0.2-1.5) % Neut # (Auto) 6.8 H (1.5-6.3) x10-3/uL Lymph # (Auto) 1.9 (1.0-4.4) x10-3/uL [place] # (Auto) 0.8 (0.3-1.0) x10-3/uL Eos # (Auto) 0.2 (0.0-0.8) x10-3/uL Baso # (Auto) 0.0 (0.0-0.1) x10-3/uL POC Glucose 249 H 274 H (80-116) mg/dL C-Reactive Protein (0.5-0.9) mg/dL 08/06/21 08/06/21 Range/Units 06:15 06:23 WBC (3.0-10.3) x10-3/uL RBC (3.60-5.20) x10(6)uL Hgb (11.4-15.5) g/dL Hct (34.2-48.2) % MCV (76.7-100.5) fL MCH (23.9-33.9) pg MCHC (31.9-34.8) g/dL RDW (12.3-16.5) % Plt Count (151-488) x10(3)uL MPV (7.1-12.4) fL Neut % (Auto) (30.8-76.2) % Lymph % (Auto) (18.4-52.1) % [place] % (Auto) (4.4-15.7) % Eos % (Auto) (0.6-8.1) % Baso % (Auto) (0.2-1.5) % Neut # (Auto) (1.5-6.3) x10-3/uL Lymph # (Auto) (1.0-4.4) x10-3/uL [place] # (Auto) (0.3-1.0) x10-3/uL Eos # (Auto) (0.0-0.8) x10-3/uL Baso # (Auto) (0.0-0.1) x10-3/uL POC Glucose 245 H (80-116) mg/dL C-Reactive Protein 28.1 H* (0.5-0.9) mg/dL Result Diagrams: 08/06/21 06:15 08/05/21 06:40 Ananth Results Last 24 hrs: Microbiology 08/03/21 01:33 Aerobic Blood Culture - Preliminary Blood - Venous NO GROWTH AFTER 3 DAYS Anaerobic Blood Culture - Preliminary NO GROWTH AFTER 3 DAYS 08/02/21 23:52 Aerobic Blood Culture - Preliminary Blood - Venous NO GROWTH AFTER 3 DAYS Anaerobic Blood Culture - Preliminary NO GROWTH AFTER 3 DAYS Sepsis Event Note - Evaluation Sepsis Screening Result: No Definite Risk - Focused Exam Vital Signs: Vital Signs Temp Pulse Resp BP BP Pulse Ox 08/06/21 08:00 97.9 F 75 16 105/71 95 08/06/21 03:29 97.1 F 92 18 120/62 95 - Problem List & Annotations (1) Cellulitis of right buttock SNOMED Code(s): 05072180 Code(s): L03.317 - CELLULITIS OF BUTTOCK Status: Acute Current Visit: Yes (2) Yeast vaginitis SNOMED Code(s): 06248918 Code(s): B37.3 - CANDIDIASIS OF VULVA AND VAGINA Status: Acute Current Visit: Yes (3) Brittle diabetes mellitus SNOMED Code(s): 44919941 Code(s): E10.9 - TYPE 1 DIABETES MELLITUS WITHOUT COMPLICATIONS Status: Chronic Current Visit: Yes (4) Morbid obesity SNOMED Code(s): 629304286 Code(s): E66.01 - MORBID (SEVERE) OBESITY DUE TO EXCESS CALORIES Status: Chronic Current Visit: No - Problem List Review Problem List Initiated/Reviewed/Updated: Yes - My Orders Last 24 Hours: My Active Orders 08/06/21 09:54 Ketorolac [Toradol] 30 mg IM Q6H PRN 08/06/21 10:00 cefTRIAXone [Rocephin] 2 gm IM Q24H 08/06/21 11:56 Wound Care [RC] QSHIFT 08/06/21 21:00 Doxycycline [Vibra-Tabs] 100 mg PO BID Insulin Glarg,Human.Rec.Analog [LantUS Solostar] 30 units SUBCUT BEDTIME 08/07/21 06:00 BASIC METABOLIC PANEL,BMP [CHEM] Routine CBC WITH AUTO DIFF [HEME] Routine - Plan Plan:: 1. Cellulitis: WBC 9.8, Rocephin 2g IM q24h, Doxycycline 100 mg po q12h day 4; CBC tomorrow, waiting for wound culture. Tylenol 650 mg q4h as needed, Toradol 30 mg IM q6h as needed; Oxycodone 5 mg q6h as needed. Sitz baths. Wound care: clean with sterile water, dry gauze packed into wound to help with debridement, covered with ABD and secured to [facility], change q shift. Follow up made with Dr Gandhi for next week. 2. Yeast vaginitis: Fluconazole 150 mg day 1 and repeat day 4. 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 Humalog high dose sliding scale. 4. Discharge planning: I&D yesterday, will have sensitivities in 24 hours, IV infiltrated today, changed Rocephin & Toradol to IM and Doxycycline to oral. Discontinued Dilaudid. Will go with [facility] to help with dressing changes.
[2021-08-06] MEDS: Doxycycline 100 MG Tab PO SCH (20:59)
[2021-08-06] MEDS: Acetaminophen 325 MG Tab PO PRN (21:00)
[2021-08-06] MEDS ORDERED: Insulin Glargine,Human Rec. Analog 100 Units/ML 3 ML Pen SUBCUT SCH (21:00)
[2021-08-07] MEDS: oxyCODONE 5 MG Tab PO PRN ×3 (02:21→14:31)
[2021-08-07] MEDS: Acetaminophen 325 MG Tab PO PRN (06:13)
[2021-08-07] MEDS: Ketorolac 30 MG/ML SDV IM PRN (06:14)
[2021-08-07] MEDS: Midodrine 5 MG Tab PO SCH ×2 (08:11→11:58)
[2021-08-07] MEDS: Insulin Lispro 100 Unit/ML 3 ML KwikPen SUBCUT SCH ×2 (08:11→11:51)
[2021-08-07] MEDS: Doxycycline 100 MG Tab PO SCH (08:13)
[2021-08-07] MEDS: Rosuvastatin 20 MG Tab PO SCH (08:13)
[2021-08-07] MEDS: buPROPion 150 MG Tab.ER PO SCH (08:13)
[2021-08-07] MEDS: FLUoxetine 20 MG Cap PO SCH (08:13)
[2021-08-07] MEDS: Folic Acid 1 MG Tab PO SCH (08:13)
[2021-08-07] MEDS: Enoxaparin 40 MG/0.4 ML Syringe SUBCUT SCH (08:16)
[2021-08-07] MEDS: cefTRIAXone 1 GM Vial IM SCH (09:51)
--- NOTE | 2021-08-07 16:16 | PCM.DCSUM1 ---
Discharge Summary - Hospital Course HPI Initial Comments: Keila states she started having pain in right buttock on , was worsening so was seen in ER on 08/01, given Augmentin & Doxycycline and went home. Came back last night with fevers, Temp 101.3F, this morning her temp is 102.2F and worsening pain. She states she has diarrhea after she eats usually, she has her gallbladder out and not on Metformin. Chills, no nausea or vomiting. Hurts when she voids. No cough, shortness of breath, chest pain. She sees Endocrinology at [place], for brittle type 2 DM, has been on many different meds but Humulin R has been working, she is on very high doses, 240 units in am, 130 units at lunch, 100 units at pm. She has noticed that if she is 144 at dinner her sensor will go off about 4am that her sugars are low, been in 60s. She stated she tried Trulicity but sugars went up to 600s, also Tresiba. She states she wasn't on insulin with the Trulicity. She also started having vaginal discharge today, white, usually gets yeasts infections on antibiotics. Diagnosis: Stroke: No - Discharge Data Discharge Date: 08/07/21 Discharge Disposition: Home, W Home Health Agency 06 Condition: Good - Referral to Home Health Date of Face to Face Encounter: 08/07/21 Reason for Homebound Status: limited mobility due to infection Primary Care Physician: Adalid Herrera, Skilled Need: longterm for wound care: dressing change daily: clean with water, pack with gauze(cover with ABD, secure with matute straps, if not able to keep in place then pack wound with gauze and change when soiled). - Discharge Diagnosis/Problem(s) (1) Cellulitis of right buttock SNOMED Code(s): 94666202 ICD Code: L03.317 - CELLULITIS OF BUTTOCK Status: Acute Current Visit: Yes (2) Yeast vaginitis SNOMED Code(s): 11785184 ICD Code: B37.3 - CANDIDIASIS OF VULVA AND VAGINA Status: Acute Current Visit: Yes (3) Brittle diabetes mellitus SNOMED Code(s): 33592636 ICD Code: E10.9 - TYPE 1 DIABETES MELLITUS WITHOUT COMPLICATIONS Status: Chronic Current Visit: Yes (4) Morbid obesity SNOMED Code(s): 175099477 ICD Code: E66.01 - MORBID (SEVERE) OBESITY DUE TO EXCESS CALORIES Status: Chronic Current Visit: No - Patient Summary/Data Consults: Consultations 08/04/21 14:30 Consult to Physician [CONS] Routine Consulting Provider: Bryce Gandhi Courtesy Call Completed to Consulting Physician: Yes Reason for Consult: cellulitis, ? abscess Person Notified: Dr Gandhi Date Notified: 08/04/21 Time Notified: 14:26 Hospital Course: Keila had temp on admit, highest was 102.2F, has been afebrile >48 hours. WBC fluctuated between 10 and 11 for few days, today down to 8.2. CRP was 23.7, went up to 28.1 right after I&D. CT abdomen/pelvis didn't show fluid collection on admission. Started on Rocephin received 3 days of IV then IV infiltrated and she has hard venous access so Rocephin switched to IM for 2 more doses. Doxycycline 100 mg IV bid for 3 days then switched to oral, total 5 days during hospital course of both antibiotics. Cellulitis was worsening, area on right buttock near gluteal fold came to head, Dr Gandhi consulted, he performed I&D on 08/05, wound culture grew coagulase negative staph. After I&D, erythema improved, pain controlled with oral Oxycodone & Tylenol, Toradol. Sitz baths once IV was removed. She also developed vaginal yeast infection, treated with 2 doses of Fluconazole, resolved with treatment. BS improved control with Levemir 30 units and high dose Humalog sliding scale, will resume home U-500 on discharge. Home Health to help with wound care, also education given to daughter to assist with dressing changes when home health will not be there. Discharge with 5 more day of oral antibiotics(Cefdinir & Doxycycline). - Patient Instructions Diet: Diabetic Diet Activity: As Tolerated Showering/Bathing: May Shower Notify Provider of: Fever, Increased Pain, Swelling and Redness - Discharge Plan *PRESCRIPTION DRUG MONITORING PROGRAM REVIEWED*: Not Applicable *COPY OF PRESCRIPTION DRUG MONITORING REPORT IN PATIENT MERRILL: Not Applicable Prescriptions/Med Rec: Cefdinir 300 mg PO BID #10 capsule oxyCODONE 5 mg PO Q6H PRN #10 tablet PRN Reason: Breakthrough Pain Home Medications: Home Meds Albuterol [Proventil HFA] 2 puff INH Q4H PRN 08/16/18 [History] buPROPion [buPROPion XL] 150 mg PO DAILY 10/22/19 [History] FLUoxetine HCl [Fluoxetine HCl] 40 mg PO DAILY 11/06/19 [History] Midodrine 5 mg PO TIDMEALS 11/23/19 [History] Insulin Regular, Human [Humulin R U-500 Kwikpen] 100 unit SQ BEDTIME 12/07/19 [History] Insulin Regular, Human [Humulin R U-500 Kwikpen] 130 unit SQ ACLUNCH 12/07/19 [History] Doxycycline [Vibra-Tabs] 100 mg PO Q12HR #20 tab 01/17/21 [Rx] Folic Acid 1 mg PO DAILY 01/17/21 [History] Rosuvastatin [Crestor] 20 mg PO DAILY 01/17/21 [History] Ibuprofen [Ibu] 800 mg PO Q8H PRN #30 tablet 04/25/21 [Rx] diazePAM [Valium] 10 mg PO Q8H PRN #10 tablet 04/25/21 [Rx] Insulin Regular, Human [Humulin R U-500 Kwikpen] 240 unit SQ DAILY 08/02/21 [History] Cholecalciferol (Vitamin D3) [Vitamin D3] 25 mcg PO DAILY 08/04/21 [History] Multivitamin/Iron/Folic Acid [Multi-Day Plus Iron Tablet] 1 tab PO DAILY 08/04/21 [History] [place]-3 Fatty Acids/Fish Oil [Fish Oil 1,000 mg Capsule] 1 cap PO DAILY 08/04/21 [History] Pramipexole [Mirapex] 0.5 mg PO BEDTIME PRN 08/04/21 [History] Pramipexole [Mirapex] 1 mg PO 1900 08/04/21 [History] Sennosides/Docusate Sodium [Senna Plus 8.6-50 mg Tablet] 1 tab PO BID PRN 08/04/21 [History] Venlafaxine [Effexor XR] 37.5 mg PO DAILY 08/04/21 [History] gemfibroziL [Gemfibrozil] 600 mg PO BIDMEALS 08/04/21 [History] hydrOXYzine pamoate [Hydroxyzine Pamoate] 25 mg PO TID PRN 08/04/21 [History] Acetaminophen [Tylenol] 650 mg PO Q4H PRN tablet 08/07/21 [Rx] Cefdinir 300 mg PO BID #10 capsule 08/07/21 [Rx] Hydroxychloroquine [Plaquenil] 200 mg PO BID #0 08/07/21 [Rx] Methotrexate 12.5 mg PO MO #0 08/07/21 [Rx] oxyCODONE 5 mg PO Q6H PRN #10 tablet 08/07/21 [Rx] Patient Handouts: Skin Abscess, [id number], Fall Prevention in Hospitals, Adult, Anorectal Abscess Forms: ED Department Discharge Referrals: Adalid Herrera DO [Primary Care Provider] - Bryce Gandhi MD [Physician] - 08/12/21 11:30 am (At [facility] WednesdayAugust 12 at 1130.) - Discharge Summary/Plan Comment DC Time >30 min.: No Total # of Minutes for Discharge Time: 15 min - General Info Date of Service: 08/07/21 Subjective Update: She is having serosanguineous drainage out of wound, pain improving. No fevers. Would like to go home. Her daughter will help with dressing changes and Home health will also assist with wound care. No diarrhea for few days. Vaginal discharge resolved. Functional Status: Reports: Pain Controlled, Tolerating Diet, Ambulating, Urinating. Denies: New Symptoms - Patient Data Vitals - Most Recent: Last Vital Signs Temp 96.3 F L 08/07/21 08:00 Pulse 87 08/07/21 08:00 Resp 16 08/07/21 08:00 BP 118/63 08/07/21 08:00 Pulse Ox 97 08/07/21 08:00 Weight - Most Recent: 328 lb 8 oz I&O - Last 24 hours: Intake & Output 08/07/21 08/07/21 08/07/21 06:59 14:59 22:59 Intake Total 500 Balance 500 Lab Results - Last 24 hrs: Laboratory Results - last 24 hr 08/06/21 08/06/21 08/06/21 Range/Units 11:42 17:07 21:12 WBC (3.0-10.3) x10-3/uL RBC (3.60-5.20) x10(6)uL Hgb (11.4-15.5) g/dL Hct (34.2-48.2) % MCV (76.7-100.5) fL MCH (23.9-33.9) pg MCHC (31.9-34.8) g/dL RDW (12.3-16.5) % Plt Count (151-488) x10(3)uL MPV (7.1-12.4) fL Neut % (Auto) (30.8-76.2) % Lymph % (Auto) (18.4-52.1) % [place] % (Auto) (4.4-15.7) % Eos % (Auto) (0.6-8.1) % Baso % (Auto) (0.2-1.5) % Neut # (Auto) (1.5-6.3) x10-3/uL Lymph # (Auto) (1.0-4.4) x10-3/uL [place] # (Auto) (0.3-1.0) x10-3/uL Eos # (Auto) (0.0-0.8) x10-3/uL Baso # (Auto) (0.0-0.1) x10-3/uL Sodium (135-145) mmol/L Potassium (3.5-5.3) mmol/L Chloride (100-110) mmol/L Carbon Dioxide (21-32) mmol/L BUN (7-18) mg/dL Creatinine (0.55-1.02) mg/dL Est Cr Clr Drug Dosing mL/min Estimated GFR (MDRD) (>60) BUN/Creatinine Ratio (9-20) Glucose (80-116) mg/dL POC Glucose 257 H 260 H 255 H (80-116) mg/dL Calcium (8.6-10.2) mg/dL 08/07/21 08/07/21 08/07/21 Range/Units 06:10 06:10 06:24 WBC 8.2 (3.0-10.3) x10-3/uL RBC 3.60 (3.60-5.20) x10(6)uL Hgb 10.0 L (11.4-15.5) g/dL Hct 29.5 L (34.2-48.2) % MCV 81.9 (76.7-100.5) fL MCH 27.7 (23.9-33.9) pg MCHC 33.9 (31.9-34.8) g/dL RDW 15.8 (12.3-16.5) % Plt Count 243 (151-488) x10(3)uL MPV 6.6 L (7.1-12.4) fL Neut % (Auto) 63.8 (30.8-76.2) % Lymph % (Auto) 25.6 (18.4-52.1) % [place] % (Auto) 7.6 (4.4-15.7) % Eos % (Auto) 2.1 (0.6-8.1) % Baso % (Auto) 0.9 (0.2-1.5) % Neut # (Auto) 5.3 (1.5-6.3) x10-3/uL Lymph # (Auto) 2.1 (1.0-4.4) x10-3/uL [place] # (Auto) 0.6 (0.3-1.0) x10-3/uL Eos # (Auto) 0.2 (0.0-0.8) x10-3/uL Baso # (Auto) 0.1 (0.0-0.1) x10-3/uL Sodium 139 (135-145) mmol/L Potassium 3.3 L (3.5-5.3) mmol/L Chloride 101 (100-110) mmol/L Carbon Dioxide 32 (21-32) mmol/L BUN 5 L (7-18) mg/dL Creatinine 0.7 (0.55-1.02) mg/dL Est Cr Clr Drug Dosing 85.34 mL/min Estimated GFR (MDRD) > 60 (>60) BUN/Creatinine Ratio 7.1 L (9-20) Glucose 213 H (80-116) mg/dL POC Glucose 197 H (80-116) mg/dL Calcium 8.6 (8.6-10.2) mg/dL 08/07/21 Range/Units 11:46 WBC (3.0-10.3) x10-3/uL RBC (3.60-5.20) x10(6)uL Hgb (11.4-15.5) g/dL Hct (34.2-48.2) % MCV (76.7-100.5) fL MCH (23.9-33.9) pg MCHC (31.9-34.8) g/dL RDW (12.3-16.5) % Plt Count (151-488) x10(3)uL MPV (7.1-12.4) fL Neut % (Auto) (30.8-76.2) % Lymph % (Auto) (18.4-52.1) % [place] % (Auto) (4.4-15.7) % Eos % (Auto) (0.6-8.1) % Baso % (Auto) (0.2-1.5) % Neut # (Auto) (1.5-6.3) x10-3/uL Lymph # (Auto) (1.0-4.4) x10-3/uL [place] # (Auto) (0.3-1.0) x10-3/uL Eos # (Auto) (0.0-0.8) x10-3/uL Baso # (Auto) (0.0-0.1) x10-3/uL Sodium (135-145) mmol/L Potassium (3.5-5.3) mmol/L Chloride (100-110) mmol/L Carbon Dioxide (21-32) mmol/L BUN (7-18) mg/dL Creatinine (0.55-1.02) mg/dL Est Cr Clr Drug Dosing mL/min Estimated GFR (MDRD) (>60) BUN/Creatinine Ratio (9-20) Glucose (80-116) mg/dL POC Glucose 210 H (80-116) mg/dL Calcium (8.6-10.2) mg/dL VERONIKA Results - Last 24 hrs: Microbiology 08/03/21 01:33 Aerobic Blood Culture - Preliminary Blood - Venous NO GROWTH AFTER 4 DAYS Anaerobic Blood Culture - Preliminary NO GROWTH AFTER 4 DAYS 08/02/21 23:52 Aerobic Blood Culture - Preliminary Blood - Venous NO GROWTH AFTER 4 DAYS Anaerobic Blood Culture - Preliminary NO GROWTH AFTER 4 DAYS Med Orders - Current: Current Medications Acetaminophen (Acetaminophen 325 Mg Tab) 650 mg PO Q4H PRN PRN Reason: Pain (Mild 1-3)/fever Last Admin: 08/07/21 06:13 Dose: 650 mg Documented by: Albuterol (Albuterol 8 Gm Inhaler) 0 gm INH Q4H PRN PRN Reason: Wheezing Bupropion HCl (Bupropion 150 Mg Tab.Er) 150 mg PO DAILY [facility] Last Admin: 08/07/21 08:13 Dose: 150 mg Documented by: Ceftriaxone Sodium (Ceftriaxone 1 Gm Vial) 2 gm IM Q24H [facility] Last Admin: 08/07/21 09:51 Dose: 2 gm Documented by: Dextrose/Water (50% Dextrose In Water 50 Ml Syringe) 50 ml IVPUSH ASDIRECTED PRN PRN Reason: Hypoglycemia Docusate Sodium (Docusate Sodium 100 Mg Cap) 100 mg PO BID PRN PRN Reason: Constipation Doxycycline Hyclate (Doxycycline 100 Mg Tab) 100 mg PO BID [facility] Last Admin: 08/07/21 08:13 Dose: 100 mg Documented by: Enoxaparin Sodium (Enoxaparin 40 Mg/0.4 Ml Syringe) 40 mg SUBCUT Q24H [facility] Last Admin: 08/07/21 08:16 Dose: 40 mg Documented by: Fluoxetine HCl (Fluoxetine 20 Mg Cap) 40 mg PO DAILY [facility] Last Admin: 08/07/21 08:13 Dose: 40 mg Documented by: Folic Acid (Folic Acid 1 Mg Tab) 1 mg PO DAILY [facility] Last Admin: 08/07/21 08:13 Dose: 1 mg Documented by: Glucagon (Glucagon,Human Recombinant 1 Mg Vial) 1 mg IM ASDIRECTED PRN PRN Reason: Hypoglycemia Hydromorphone HCl (Hydromorphone 2 Mg/Ml Sdv) 0.5 mg IVPUSH Q2H PRN PRN Reason: Pain (severe 7-10) Last Admin: 08/06/21 06:27 Dose: 0.5 mg Documented by: Sodium Chloride (Normal Saline) 1,000 mls @ 30 mls/hr IV ASDIRECTED [facility] Last Admin: 08/04/21 22:12 Dose: 30 mls/hr Documented by: Insulin Glargine (Insulin Glargine,Human Rec. Analog 100 Units/Ml 3 Ml Pen) 30 units SUBCUT BEDTIME [facility] Last Admin: 08/06/21 21:14 Dose: 30 units Documented by: Insulin Human Lispro (Insulin Lispro 100 Unit/Ml 3 Ml Kwikpen) 0 unit SUBCUT TIDMEALS [facility]; Protocol Last Admin: 08/07/21 11:51 Dose: 6 units Documented by: Ketorolac Tromethamine (Ketorolac 30 Mg/Ml Sdv) 30 mg IM Q6H PRN PRN Reason: Pain Stop: 08/08/21 09:09 Last Admin: 08/07/21 06:14 Dose: 30 mg Documented by: Midodrine (Midodrine 5 Mg Tab) 5 mg PO TIDMEALS [facility] Last Admin: 08/07/21 11:58 Dose: Not Given Documented by: Ondansetron HCl (Ondansetron 4 Mg Tab.Dis) 4 mg PO Q4H PRN PRN Reason: Nausea Last Admin: 08/05/21 15:27 Dose: 4 mg Documented by: Oxycodone HCl (Oxycodone 5 Mg Tab) 5 mg PO Q6H PRN PRN Reason: Breakthrough Pain Last Admin: 08/07/21 14:31 Dose: 5 mg Documented by: Pramipexole Dihydrochloride (Pramipexole 1 Mg Tab) 1 mg PO BEDTIME [facility] Last Admin: 08/06/21 20:59 Dose: 1 mg Documented by: Rosuvastatin Calcium (Rosuvastatin 20 Mg Tab) 20 mg PO DAILY [facility] Last Admin: 08/07/21 08:13 Dose: 20 mg Documented by: Sodium Chloride (Sodium Chloride 0.9% 10 Ml Syringe) 10 ml FLUSH ASDIRECTED PRN PRN Reason: Keep Vein Open Last Admin: 08/05/21 15:20 Dose: 10 ml Documented by: Discontinued Medications Acetaminophen (Acetaminophen 500 Mg Tab) 1,000 mg PO ONETIME ONE Stop: 08/02/21 23:41 Last Admin: 08/02/21 23:30 Dose: 1,000 mg Documented by: Ceftriaxone Sodium (Ceftriaxone 2 Gm Vial) 2 gm IVPUSH Q24H [facility] Last Admin: 08/06/21 10:19 Dose: Not Given Documented by: Doxycycline Hyclate (Doxycycline 100 Mg Tab) 100 mg PO ONETIME ONE Stop: 08/03/21 06:01 Last Admin: 08/03/21 05:49 Dose: 100 mg Documented by: Enoxaparin Sodium (Enoxaparin 40 Mg/0.4 Ml Syringe) 40 mg SUBCUT Q24H [facility] Last Admin: 08/03/21 07:58 Dose: Not Given Documented by: Fluconazole (Fluconazole 150 Mg Tab) 150 mg PO ONETIME ONE Stop: 08/03/21 14:04 Last Admin: 08/03/21 16:32 Dose: 150 mg Documented by: Fluconazole (Fluconazole 150 Mg Tab) 150 mg PO ONETIME ONE Stop: 08/06/21 09:01 Last Admin: 08/06/21 08:39 Dose: 150 mg Documented by: Hydromorphone HCl (Hydromorphone 2 Mg/Ml Sdv) 0.5 mg IVPUSH ONETIME ONE Stop: 08/02/21 23:46 Last Admin: 08/03/21 01:50 Dose: 0.5 mg Documented by: Lactated Ringer's (Ringers, Lactated) 1,000 mls @ 999 mls/hr IV BOLUS ONE Stop: 08/03/21 01:22 Last Admin: 08/03/21 02:09 Dose: 999 mls/hr Documented by: Ampicillin Sodium/Sulbactam (Sodium 3 gm/ Sodium Chloride) 100 mls @ 100 mls/hr IV ONETIME ONE Stop: 08/03/21 03:34 Last Admin: 08/03/21 03:00 Dose: 100 mls/hr Documented by: Lactated Ringer's (Ringers, Lactated) 1,000 mls @ 150 mls/hr IV ASDIRECTED [facility] Last Admin: 08/03/21 03:39 Dose: 150 mls/hr Documented by: Doxycycline Hyclate 100 mg/ (Sodium Chloride) 100 mls @ 100 mls/hr IV Q12H [facility] Last Admin: 08/03/21 16:38 Dose: Not Given Documented by: Doxycycline Hyclate 100 mg/ (Sodium Chloride) 100 mls @ 100 mls/hr IV Q12H [facility] Last Admin: 08/06/21 05:50 Dose: 100 mls/hr Documented by: Sodium Chloride (Normal Saline) 250 mls @ 30 mls/hr IV ONETIME ONE Stop: 08/05/21 01:19 Last Admin: 08/04/21 17:00 Dose: 30 mls/hr Documented by: Insulin Glargine (Insulin Glargine,Human Rec. Analog 100 Units/Ml 3 Ml Pen) 15 units SUBCUT BEDTIME [facility] Insulin Glargine (Insulin Glargine,Human Rec. Analog 100 Units/Ml 3 Ml Pen) 15 units SUBCUT BEDTIME [facility] Last Admin: 08/04/21 22:04 Dose: 15 units Documented by: Insulin Glargine (Insulin Glargine,Human Rec. Analog 100 Units/Ml 3 Ml Pen) 20 units SUBCUT BEDTIME [facility] Last Admin: 08/05/21 21:07 Dose: 20 units Documented by: Insulin Human Lispro (Insulin Lispro 100 Unit/Ml 3 Ml Kwikpen) 100 unit SUBCUT BEDTIME [facility]Y Insulin Human Lispro (Insulin Lispro 100 Unit/Ml 3 Ml Kwikpen) 130 unit SUBCUT ACLUNCH [facility]ERRY Insulin Human Lispro (Insulin Lispro 100 Unit/Ml 3 Ml Kwikpen) 240 unit SUBCUT DAILY [facility] Last Admin: 08/03/21 08:50 Dose: Not Given Documented by: Insulin Human Regular (Insulin Regular, Human 100 Units/Ml 3 Ml Vial) 40 unit SUBCUT ONETIME ONE Stop: 08/03/21 00:26 Last Admin: 08/03/21 01:56 Dose: 40 units Documented by: Insulin Human Regular (Insulin Regular, Human 100 Units/Ml 3 Ml Vial) 240 unit SUBCUT DAILY [facility] Iopamidol (Iopamidol 755 Mg/Ml 150 Ml Bottle) 150 ml IV ONETIME ONE Stop: 08/03/21 00:56 Last Admin: 08/03/21 02:11 Dose: 150 ml Documented by: Ketorolac Tromethamine (Ketorolac 30 Mg/Ml Sdv) 30 mg IVPUSH Q6H [facility] Stop: 08/08/21 09:09 Last Admin: 08/06/21 10:20 Dose: Not Given Documented by: Non-Formulary Medication (Insulin Regular, Human [Humulin R U-500 Kwikpen]) 240 unit SQ DAILY [facility] Ondansetron HCl (Ondansetron 4 Mg Tab.Dis) 4 mg PO Q6H PRN PRN Reason: nausea, able to take PO Last Admin: 08/03/21 06:12 Dose: 4 mg Documented by: Oxycodone HCl (Oxycodone 5 Mg Tab) 5 mg PO Q8H PRN PRN Reason: Breakthrough Pain Last Admin: 08/03/21 10:34 Dose: 5 mg Documented by: - Exam General: Reports: Alert, Oriented, Cooperative, No Acute Distress Lungs: Reports: Clear to Auscultation, Normal Respiratory Effort Cardiovascular: Reports: Regular Rate, Regular Rhythm GI/Abdominal Exam: Normal Bowel Sounds, Soft, Non-Tender, No Distention Extremities: No Pedal Edema Wound/Incisions: Reports: Drainage (serosanguineous), Erythema Improving (soft, induration improving, most confined to gluteal fold now.)
[2021-08-07 16:17] VITALS: BP 146/77; PULSE 100
== END 2021-08-07 17:00 | disposition home health service (06) | DRG 603 ==
LOC: FB.ED 22:55 → FB.MS 08-03 02:40
PROVIDERS: ADMIT Family Medicine; ATTEND Family Medicine
PROC: 0Y900ZZ Drainage of Right Buttock, Open Approach (ICD-10-PCS; principal; 2021-08-05)
DX: L03.317 Cellulitis of buttock (principal); H54.7 Unspecified visual loss; E78.00 Pure hypercholesterolemia, unspecified; I10 Essential (primary) hypertension; I49.8 Other specified cardiac arrhythmias; Z68.44 Body mass index [BMI] 60.0-69.9, adult; G47.30 Sleep apnea, unspecified; E66.01 Morbid (severe) obesity due to excess calories; B37.3 Candidiasis of vulva and vagina; E11.65 Type 2 diabetes mellitus with hyperglycemia; E20.9 Hypoparathyroidism, unspecified; Z86.16 Personal history of COVID-19; Z88.8 Allergy status to other drugs, medicaments and biological substances; Z79.4 Long term (current) use of insulin; Z79.899 Other long term (current) drug therapy; E78.5 Hyperlipidemia, unspecified; K21.9 Gastro-esophageal reflux disease without esophagitis; Z20.822 Contact with and (suspected) exposure to COVID-19; F41.9 Anxiety disorder, unspecified; N18.9 Chronic kidney disease, unspecified; I12.9 Hypertensive chronic kidney disease with stage 1 through stage 4 chronic kidney disease, or unspecified chronic kidney disease; F32.9 Major depressive disorder, single episode, unspecified; J45.909 Unspecified asthma, uncomplicated; Z90.89 Acquired absence of other organs; E11.22 Type 2 diabetes mellitus with diabetic chronic kidney disease; B95.7 Other staphylococcus as the cause of diseases classified elsewhere; Z98.890 Other specified postprocedural states; Z90.49 Acquired absence of other specified parts of digestive tract; Z87.19 Personal history of other diseases of the digestive system; Z90.6 Acquired absence of other parts of urinary tract; Z90.722 Acquired absence of ovaries, bilateral; Z87.81 Personal history of (healed) traumatic fracture; Z86.010 Personal history of colon polyps
CPT/HCPCS: 36415 ×2; 74177; 80048; 81001; 83605; 85027; 86140; 87040 ×2; 96374; 99284; A9270; J1170; J1815; J7120; Q9967; 36410; 82274; 82947; 85025; 87070; 87075; 87205; J0295; J0696; J1650; J1885; J3490; J7030; J7050; U0002

== ENCOUNTER 2022-01-07 02:39 | Emergency (ER) | payer MEDICARE, MEDICAID ==
[2022-01-07 03:01] VITALS: PULSE 86
[2022-01-07] MEDS ORDERED: Cephalexin 500 MG Cap PO STA (03:28)
[2022-01-07 03:42] VITALS: BP 157/88
== END 2022-01-07 03:45 | disposition home or self-care (01) ==
LOC: FB.ED 02:39
DX: N39.0 Urinary tract infection, site not specified (principal); E78.00 Pure hypercholesterolemia, unspecified; I10 Essential (primary) hypertension; K21.9 Gastro-esophageal reflux disease without esophagitis; E11.9 Type 2 diabetes mellitus without complications; E66.9 Obesity, unspecified; Z68.43 Body mass index [BMI] 50.0-59.9, adult; Z88.1 Allergy status to other antibiotic agents; Z88.5 Allergy status to narcotic agent; Z88.8 Allergy status to other drugs, medicaments and biological substances; Z91.048 Other nonmedicinal substance allergy status; Z79.4 Long term (current) use of insulin; Z79.899 Other long term (current) drug therapy
CPT/HCPCS: 81001; 87086; 87088; 87186; 99282; 99283; A9270-GY

== ENCOUNTER 2022-03-15 02:36 | Emergency (ER) | payer MEDICARE, MEDICAID ==
[2022-03-15] MEDS ORDERED: cefTRIAXone 1 GM Vial IM ONE (03:05)
[2022-03-15] MEDS ORDERED: Acetaminophen/HYDROcodone 325-7.5 MG Tab PO STA (03:06)
[2022-03-16 20:47] VITALS: BP 167/108; PULSE 88
== END 2022-03-15 03:25 | disposition home or self-care (01) ==
LOC: FB.ED 02:36
DX: T81.40XA Infection following a procedure, unspecified, initial encounter (principal); L03.116 Cellulitis of left lower limb; B37.3 Candidiasis of vulva and vagina; E11.65 Type 2 diabetes mellitus with hyperglycemia; E78.00 Pure hypercholesterolemia, unspecified; I10 Essential (primary) hypertension; K21.9 Gastro-esophageal reflux disease without esophagitis; E03.9 Hypothyroidism, unspecified; E66.01 Morbid (severe) obesity due to excess calories; Z68.43 Body mass index [BMI] 50.0-59.9, adult; Z91.040 Latex allergy status; Z86.16 Personal history of COVID-19; Z88.1 Allergy status to other antibiotic agents; Z88.8 Allergy status to other drugs, medicaments and biological substances; Z79.4 Long term (current) use of insulin; Z79.899 Other long term (current) drug therapy
CPT/HCPCS: 96372; 99282; A9270; J0696; 99283

== ENCOUNTER 2022-04-28 19:13 | Emergency (ER) | payer MEDICARE, MEDICAID ==
[2022-04-28 19:36] VITALS: BP 150/92
[2022-04-28 21:53] VITALS: PULSE 104
== END 2022-04-28 21:00 | disposition home or self-care (01) ==
LOC: FB.ED 19:13
DX: U07.1 COVID-19 (principal); J45.909 Unspecified asthma, uncomplicated; I10 Essential (primary) hypertension; E11.9 Type 2 diabetes mellitus without complications; E66.9 Obesity, unspecified; Z68.43 Body mass index [BMI] 50.0-59.9, adult; Z88.8 Allergy status to other drugs, medicaments and biological substances; Z88.2 Allergy status to sulfonamides; Z91.048 Other nonmedicinal substance allergy status; Z79.899 Other long term (current) drug therapy; Z79.4 Long term (current) use of insulin; Z86.16 Personal history of COVID-19; Z90.49 Acquired absence of other specified parts of digestive tract
CPT/HCPCS: 87651; 99281; 99283; U0002

== ENCOUNTER 2022-05-03 21:28 | Emergency (ER) | payer MEDICARE, MEDICAID ==
[2022-05-03] MEDS ORDERED: Acetaminophen/HYDROcodone 325-5 MG Tab PO ONE ×2 (21:29→21:54)
[2022-05-03] MEDS ORDERED: Clindamycin HCl 150 MG Cap PO ONE (21:53)
[2022-05-03 22:15] VITALS: BP 149/94; PULSE 95
== END 2022-05-03 22:21 | disposition home or self-care (01) ==
LOC: FB.ED 21:28
DX: L02.12 Furuncle of neck (principal); I10 Essential (primary) hypertension; E11.9 Type 2 diabetes mellitus without complications; E66.9 Obesity, unspecified; Z68.30 Body mass index [BMI] 30.0-30.9, adult; Z88.8 Allergy status to other drugs, medicaments and biological substances; Z88.2 Allergy status to sulfonamides; Z91.048 Other nonmedicinal substance allergy status; Z79.899 Other long term (current) drug therapy; Z79.4 Long term (current) use of insulin; Z86.16 Personal history of COVID-19; Z90.49 Acquired absence of other specified parts of digestive tract
CPT/HCPCS: 99283; A9270; 99281

== ENCOUNTER 2022-07-07 16:42 | Emergency (ER) | payer MEDICARE, MEDICAID ==
[2022-07-07] MEDS ORDERED: Sodium Chloride 0.9% 10 ML Syringe FLUSH PRN (17:05)
[2022-07-07] MEDS ORDERED: Pantoprazole 40 MG Vial IVPUSH ONE (17:07)
[2022-07-07] MEDS ORDERED: Ondansetron 4 MG/2 ML SDV IVPUSH ONE (17:07)
[2022-07-07] MEDS ORDERED: Morphine 4 MG/ML VIAL IVPUSH ONE (17:07)
[2022-07-07] MEDS ORDERED: Iopamidol 755 MG/ML 150 ML Bottle IV ONE (17:11)
[2022-07-07] MEDS ORDERED: Sodium Chloride 0.9% 1,000 ML IV SCH (17:15)
[2022-07-07 17:34] LABS: ESTIMATED GFR 95 mL/min (>60)
[2022-07-07 19:48] VITALS: BP 118/65; PULSE 79
== END 2022-07-07 18:55 | disposition home or self-care (01) ==
LOC: FB.ED 16:42
DX: K92.1 Melena (principal); I10 Essential (primary) hypertension; E78.00 Pure hypercholesterolemia, unspecified; K21.9 Gastro-esophageal reflux disease without esophagitis; E11.9 Type 2 diabetes mellitus without complications; E66.9 Obesity, unspecified; Z88.2 Allergy status to sulfonamides; Z88.8 Allergy status to other drugs, medicaments and biological substances; Z79.4 Long term (current) use of insulin; Z79.899 Other long term (current) drug therapy
CPT/HCPCS: 36415; 74177; 80053; 82150; 83690; 85025; 96361; 96374; 96375; 99284-25; C9113; J2270; J2405; J7030; Q9967

== ENCOUNTER 2022-09-03 17:35 | Emergency (ER) | payer MEDICARE, MEDICAID ==
[2022-09-03] MEDS ORDERED: traMADol 50 MG Tab PO ONE (17:36)
[2022-09-03 18:09] VITALS: PULSE 72
[2022-09-03 18:30] VITALS: BP 130/77
== END 2022-09-03 19:10 | disposition home or self-care (01) ==
LOC: FB.ED 17:35
DX: S43.401A Unspecified sprain of right shoulder joint, initial encounter (principal); E78.00 Pure hypercholesterolemia, unspecified; I10 Essential (primary) hypertension; J45.909 Unspecified asthma, uncomplicated; K21.9 Gastro-esophageal reflux disease without esophagitis; E11.9 Type 2 diabetes mellitus without complications; E20.9 Hypoparathyroidism, unspecified; E66.9 Obesity, unspecified; Z68.43 Body mass index [BMI] 50.0-59.9, adult; Z88.8 Allergy status to other drugs, medicaments and biological substances; Z88.2 Allergy status to sulfonamides; Z91.048 Other nonmedicinal substance allergy status; Z79.899 Other long term (current) drug therapy; W18.30XA Fall on same level, unspecified, initial encounter; Y92.000 Kitchen of unspecified non-institutional (private) residence as the place of occurrence of the external cause
CPT/HCPCS: 73110; 73610; 99283; A9270

== ENCOUNTER 2022-09-21 19:33 | Emergency (ER) | payer MEDICARE, MEDICAID ==
[2022-09-21 20:43] LABS: ESTIMATED GFR 116 mL/min (>60)
[2022-09-21] MEDS ORDERED: traMADol 50 MG Tab PO ONE (21:12)
[2022-09-21] MEDS ORDERED: Ondansetron 8 MG Tab.DIS PO ONE (21:12)
[2022-09-21 22:44] VITALS: BP 125/77; PULSE 73
== END 2022-09-21 22:38 | disposition home or self-care (01) ==
LOC: FB.ED 19:33
DX: R10.32 Left lower quadrant pain (principal); I10 Essential (primary) hypertension; E78.00 Pure hypercholesterolemia, unspecified; K21.9 Gastro-esophageal reflux disease without esophagitis; E11.9 Type 2 diabetes mellitus without complications; Z79.899 Other long term (current) drug therapy
CPT/HCPCS: 36415; 74176; 80048; 81001; 85025; 86140; 99284; A9270

== ENCOUNTER 2022-11-14 21:19 | Emergency (ER) | payer MEDICARE, MEDICAID ==
[2022-11-14 22:02] LABS: ESTIMATED GFR 111 mL/min (>60)
[2022-11-14] MEDS ORDERED: hydrOXYzine HCl 50 MG/ML SDV IM ONE (22:03)
[2022-11-14] MEDS ORDERED: Ketorolac 30 MG/ML SDV IM ONE (22:03)
[2022-11-14 23:25] VITALS: BP 130/76; PULSE 73
== END 2022-11-14 23:01 | disposition home or self-care (01) ==
LOC: FB.ED 21:19
DX: R07.89 Other chest pain (principal); E78.00 Pure hypercholesterolemia, unspecified; I10 Essential (primary) hypertension; J45.909 Unspecified asthma, uncomplicated; K21.9 Gastro-esophageal reflux disease without esophagitis; E11.9 Type 2 diabetes mellitus without complications; E20.9 Hypoparathyroidism, unspecified; E66.9 Obesity, unspecified; Z68.42 Body mass index [BMI] 45.0-49.9, adult; Z88.8 Allergy status to other drugs, medicaments and biological substances; Z88.2 Allergy status to sulfonamides; Z91.048 Other nonmedicinal substance allergy status; Z79.899 Other long term (current) drug therapy
CPT/HCPCS: 36415; 71046; 80048; 84484; 85025; 93005; 93010; 96372; 99283; 99285; J1885; J3410

== ENCOUNTER 2023-01-13 21:32 | Emergency (ER) | payer MEDICARE, MEDICAID ==
[2023-01-13 22:42] LABS: ESTIMATED GFR 111 mL/min (>60)
[2023-01-13 23:01] VITALS: BP 195/97; PULSE 65
== END 2023-01-13 23:55 | disposition home or self-care (01) ==
LOC: FB.ED 21:32
DX: F41.9 Anxiety disorder, unspecified (principal); R53.81 Other malaise; G90.A Postural orthostatic tachycardia syndrome [POTS]; I10 Essential (primary) hypertension; J45.909 Unspecified asthma, uncomplicated; K21.9 Gastro-esophageal reflux disease without esophagitis; E11.9 Type 2 diabetes mellitus without complications; E66.9 Obesity, unspecified; Z91.048 Other nonmedicinal substance allergy status; Z88.1 Allergy status to other antibiotic agents; Z88.8 Allergy status to other drugs, medicaments and biological substances; Z79.899 Other long term (current) drug therapy; Z86.16 Personal history of COVID-19; Z68.41 Body mass index [BMI] 40.0-44.9, adult
CPT/HCPCS: 36415; 80053; 83735; 84484; 85025; 85379; 93005; 99283

== ENCOUNTER 2023-04-03 18:23 | Emergency (ER) | payer MEDICARE, MEDICAID ==
[2023-04-03 19:26] LABS: BASOPHILS ABSOLUTE AUTO 0.1 x10-3/uL (0.0-0.1); BASOPHILS PERCENT AUTO 0.7 % (0.2-1.5); EOSINOPHILS ABSOLUTE AUTO 0.2 x10-3/uL (0.0-0.8); EOSINOPHILS PERCENT AUTO 1.8 % (0.6-8.1); HEMOGLOBIN 14.6 g/dL (11.4-15.5); LYMPHOCYTES ABSOLUTE AUTO 4.8 x10-3/uL (1.0-4.4); MEAN CORPUSCULAR HEMOGLOBIN 27.4 pg (23.9-33.9); MEAN CORPUSCULAR HGB CONC 33.9 g/dL (31.9-34.8); MEAN CORPUSCULAR VOLUME 80.6 fL (76.7-100.5); MEAN PLATELET VOLUME 8.4 fL (7.1-12.4); MONOCYTES ABSOLUTE AUTO 0.6 x10-3/uL (0.3-1.0); MONOCYTES PERCENT AUTO 5.1 % (4.4-15.7); NEUTROPHILS ABSOLUTE AUTO 6.2 x10-3/uL (1.5-6.3); NEUTROPHILS PERCENT AUTO 52.4 % (30.8-76.2); PLATELET COUNT,PLT 252 x10(3)uL (151-488); RED BLOOD CELL COUNT 5.33 x10(6)uL (3.60-5.20); RED CELL DISTRIBUTION WIDTH 14.5 % (12.3-16.5); WHITE BLOOD CELL COUNT,WBC 11.9 x10-3/uL (3.0-10.3)
[2023-04-03 19:27] LABS: BLOOD UREA NITROGEN,BUN 8 mg/dL (7-18); CALCIUM 9.5 mg/dL (8.6-10.2); CARBON DIOXIDE,CO2 30 mmol/L (21-32); CHLORIDE,CL 102 mmol/L (100-110); CREATININE 0.8 mg/dL (0.55-1.02); EST CRCL DRUG DOSING (CG) 76.55 mL/min; ESTIMATED GFR 95 mL/min (>60); GLUCOSE RANDOM 166 mg/dL (80-116); POTASSIUM,K 3.5 mmol/L (3.5-5.3); SODIUM,NA 139 mmol/L (135-145)
[2023-04-03 19:32] LABS: ACETAMINOPHEN < 2 ug/mL (<2); SALICYLATE 0.7 mg/dL (<2.8)
[2023-04-03 19:36] LABS: AMPHETAMINES SCREEN, URINE NEGATIVE (NEGATIVE); BENZODIAZEPINES SCREEN,URINE NEGATIVE (NEGATIVE); METHAMPHETAMINE SCREEN, URINE NEGATIVE (NEGATIVE); THC SCREEN,URINE POSITIVE (NEGATIVE)
[2023-04-03 19:37] LABS: BARBITURATE SCREEN,URINE NEGATIVE (NEGATIVE); BUPRENORPHINE SCREEN,URINE NEGATIVE (NEGATIVE); METHADONE SCREEN, URINE NEGATIVE (NEGATIVE); OXYCODONE SCREEN,URINE POSITIVE (NEGATIVE); PROPOXYPHENE SCREEN,URINE NEGATIVE (NEGATIVE)
[2023-04-04] MEDS ORDERED: Acetaminophen 500 MG Tab PO ONE (08:28)
[2023-04-04] MEDS ORDERED: Ibuprofen 800 MG Tab PO ONE (08:28)
[2023-04-04 11:40] VITALS: BP 154/105; PULSE 111
== END 2023-04-04 10:17 ==
LOC: FB.ED 18:23
DX: R45.851 Suicidal ideations (principal); E78.00 Pure hypercholesterolemia, unspecified; I10 Essential (primary) hypertension; J45.909 Unspecified asthma, uncomplicated; K21.9 Gastro-esophageal reflux disease without esophagitis; E11.40 Type 2 diabetes mellitus with diabetic neuropathy, unspecified; E66.9 Obesity, unspecified; Z68.41 Body mass index [BMI] 40.0-44.9, adult; Z86.16 Personal history of COVID-19; Z79.899 Other long term (current) drug therapy; Z88.2 Allergy status to sulfonamides; Z91.048 Other nonmedicinal substance allergy status; Z88.8 Allergy status to other drugs, medicaments and biological substances
CPT/HCPCS: 36415; 80048; 80143; 80179; 80307; 81025; 85025; 99284; A9270-GY; U0002